=== PATIENT | female | born 1960 | race Asian ===

== ENCOUNTER 2022-04-09 10:52 | Inpatient (IN) | payer OTHER, MEDICAID ==
[~2022-04-09] VITALS: Ht 167.6 cm; Wt 70.1 kg
[2022-04-09 11:00] VITALS: BP_SYST 116
--- NOTE | 2022-04-09 11:23 | NUR ---
RENATO Pierre at bedside examining patient.
--- NOTE | 2022-04-09 11:23 | NUR ---
Patient to ER bed 5 to gown for evaluation. Side rails up.
[2022-04-09 12:07] LABS: BASOPHILS # (AUTO) 0.2 K/uL (0.0-0.2); BASOPHILS % (AUTO) 1.1 % (0.0-2.0); EOSINOPHILS # (AUTO) 0.2 K/uL (0.0-0.4); EOSINOPHILS % (AUTO) 1.1 % (0.0-4.0); HEMATOCRIT 29.6 % (36-48); HEMOGLOBIN 8.7 g/dL (12.0-16.0); LYMPHOCYTES # (AUTO) 0.7 K/uL (1.0-5.5); LYMPHOCYTES % (AUTO) 3.8 % (20.5-51.5); MEAN CORPUSCULAR HEMOGLOBIN 20 pg (27-31); MEAN CORPUSCULAR HGB CONC 29 % (32-36); MEAN CORPUSCULAR VOLUME 69 fL (79.0-98.0); MONOCYTES # (AUTO) 1.1 K/uL (0.0-1.0); NEUTROPHILS # (AUTO) 15.9 K/uL (1.8-7.7); PLATELET COUNT (AUTO) 353 K/uL (130-430); RED BLOOD CELL COUNT(AUTO) 4.27 MIL/uL (4.2-6.2); RED CELL DISTRIBUTION WIDTH 22.6 % (9.0-15.0)
[2022-04-09 12:16] LABS: ANION GAP 11 (5-15); CALCIUM 9.1 mg/dL (8.4-11.0); CHLORIDE 96 mmol/L (98-107); GLUCOSE 107 mg/dL (70-99); UREA NITROGEN, BLOOD 58 mg/dL (8-21)
[2022-04-09 12:23] LABS: INR 0.9 (0.8-1.2); PROTHROMBIN TIME 9.8 SECS (9.5-12.5)
--- NOTE | 2022-04-09 12:24 | NUR ---
[facility] Missed dialysis on Distended abdomen AOX4 VSS Able to sravanthi needs known Pt resting comfortable in bed will continue to monitor
[2022-04-09 12:26] LABS: ALANINE AMINOTRANSFERASE 22 U/L (12-78); ALBUMIN 1.8 g/dL (3.4-4.8); ASPARTATE AMINOTRANSFERASE 26 U/L (10-37); CREATININE 4.56 mg/dL (0.55-1.30); TOTAL BILIRUBIN 0.2 mg/dL (0.0-1.0)
[2022-04-09 12:29] LABS: GFR AFRICAN AMERICAN 13 mL/min (>90)
[2022-04-09] MEDS ORDERED: LINEZOLID 300 ML IV ONE (12:45)
[2022-04-09] MEDS ORDERED: CEFEPIME 2 GM in D5W 100 ML IV ONE (12:45)
--- NOTE | 2022-04-09 14:53 | NUR ---
Admit bed requested Patient will be admitted to care of Admitted to unit Tele Diagnosis SBP Inpatient (Yes or No) y Observation (Yes or No) n Orientation concerns or request close to nursing station (Yes or No) n Covid Status neg On vent or bipap no Isolation requirements no Needs a sitter no From Home (Yes or if No enter name of facility) [facility] Requires Dialysis (Yes or No) y Med Rec Completed (Yes of No) y
[2022-04-09] MEDS ORDERED: MAGNESIUM SULFATE 50 ML IV PRN (15:30)
[2022-04-09] MEDS ORDERED: ACETAMINOPHEN 325 MG TABLET PO PRN ×2 (15:30→18:00)
[2022-04-09] MEDS ORDERED: DOCUSATE SODIUM 100 MG CAPSULE PO PRN (15:30)
[2022-04-09] MEDS ORDERED: ONDANSETRON HCL 4 MG/2 ML VIAL IVP PRN (15:30)
[2022-04-09] MEDS ORDERED: MORPHINE 2 MG/ML INJ. SYRINGE IVP PRN ×2 (15:30)
[2022-04-09] MEDS ORDERED: ZOLPIDEM TARTRATE 5 MG TABLET PO PRN (15:30)
[2022-04-09] MEDS ORDERED: POTASSIUM CHLORIDE 20 MEQ TAB.PRT.SR PO PRN (15:30)
[2022-04-09] MEDS ORDERED: MUPIROCIN 2% TOPICAL OINTMENT 22 GM NS PRN (15:30)
[2022-04-09] MEDS ORDERED: NALOXONE HCL 0.4 MG/ML AMP (NARCAN) IVP PRN ×2 (15:30)
--- NOTE | 2022-04-09 16:19 | NUR ---
Note undone in EDM - 04/09/22 at 1620 by JAQUELINPR # 24 gauge angiocath placed to LAC. Use of asceptic technique. Opsite placed over site. Blood return noted. Blood for lab drawn from site. Flushed with 10 cc of normal saline. No evidence of infiltration noted. Patient tolerated well.
--- NOTE | 2022-04-09 16:20 | NUR ---
# 24 gauge angiocath placed to LEFT LATERAL HAND. Use of asceptic technique. Opsite placed over site. Blood return noted. Blood for lab drawn from site. Flushed with 10 cc of normal saline. No evidence of infiltration noted. Patient tolerated well.
--- NOTE | 2022-04-09 17:08 | NUR ---
Pt resting comfortable in bed at this time AOX4 VSS Able to sravanthi needs known will continue to monitor
[2022-04-09] MEDS ORDERED: ACET-2439 GT (18:22)
[2022-04-09] MEDS ORDERED: AMIO200T66 GT (18:22)
--- NOTE | 2022-04-09 19:30 | NUR ---
report from ricardo harvey
--- NOTE | 2022-04-09 19:40 | NUR ---
Patient to be transferred to TELE UNIT. 134A. Is being transferred due to higher level of care. Receiving facility has accepting physician and available space. ER physician has signed transfer form. Patient or responsible democrat has agreed to transfer and signed form. Patient belongings inventoried and will be sent with patient. Copy of nursing notes, lab reports, EKG, Physicians Orders and X-rays to be sent with patient. Report given to Nell FERNANDO. Receiving physician is
[2022-04-09] MEDS: VANCOMYCIN HCL 500 MG in NS 100 ML IV SCH (20:00)
--- NOTE | 2022-04-09 20:00 | NUR ---
04/09/221999 61 YR OLD PATIENT TRANSFER TO [facility] FROM ED IS ALERT ORIENTED CONNECTED TO TELEMETRY SKLIN WARM AND DRY WITH DIAPER ON REFUSE TO TAKE SAME OFF BILAteral LE with edema orient to room and surroundings
[2022-04-09 20:56] VITALS: BP_SYST 104
[2022-04-09] MEDS: HEPARIN SODIUM,PORCINE 5,000 UNITS/ML VIAL SUBCUT SCH (21:57)
[2022-04-09] MEDS: PIPERACILLIN/TAZO 2.25G/DEX-IS 50 ML IV SCH (22:07)
[2022-04-09 22:08] VITALS: BP_SYST 114
[2022-04-10] VITALS (9 sets, daily range): BP systolic 98–126
--- NOTE | 2022-04-10 02:11 | NUR ---
Consultation Paged Reason for Consultation: poss metastatic disease Was consult called: Y Person who was notified: Gretta Consulting Physician: Dr. Hyde Ordering Physician: Dr. Dee
--- NOTE | 2022-04-10 02:19 | NUR ---
Consultation Paged Reason for Consultation: liver cirrhosis, ascites Was consult called: Y Person who was notified: Michelle Consulting Physician: Gianni Bella Ordering Physician: Dr. Dee
--- NOTE | 2022-04-10 02:42 | NUR ---
CONSULTATION PAGED REASON FOR CONSULTATION: Renal Dialysis WAS CONSULT CALLED? Y PERSON WHO WAS NOTIFIED: Michelle CONSULTING PHYSICIAN: López Hernández (Isabel Hernández is solid waste division supervisor) REQUESTING PHYSICIAN: Dr. Dee
--- NOTE | 2022-04-10 04:38 | NUR ---
INCONTINENT OF URINE DIAPER REMOVED AND WASHED OBSERVE BRUISE ON LT HIP MADE COMFORTABLE IN BED
[2022-04-10] MEDS: PIPERACILLIN/TAZO 2.25G/DEX-IS 50 ML IV SCH ×3 (05:23→22:50)
[2022-04-10 07:03] LABS: BASOPHILS # (AUTO) 0.1 K/uL (0.0-0.2); BASOPHILS % (AUTO) 0.8 % (0.0-2.0); EOSINOPHILS # (AUTO) 0.2 K/uL (0.0-0.4); EOSINOPHILS % (AUTO) 1.4 % (0.0-4.0); HEMATOCRIT 24.9 % (36-48); HEMOGLOBIN 7.8 g/dL (12.0-16.0); LYMPHOCYTES # (AUTO) 0.8 K/uL (1.0-5.5); LYMPHOCYTES % (AUTO) 5.4 % (20.5-51.5); MEAN CORPUSCULAR HEMOGLOBIN 22 pg (27-31); MEAN CORPUSCULAR HGB CONC 31 % (32-36); MEAN CORPUSCULAR VOLUME 69 fL (79.0-98.0); MONOCYTES % (AUTO) 6.7 % (1.7-9.3); NEUTROPHILS # (AUTO) 12.5 K/uL (1.8-7.7); PLATELET COUNT (AUTO) 275 K/uL (130-430); RED BLOOD CELL COUNT(AUTO) 3.61 MIL/uL (4.2-6.2); RED CELL DISTRIBUTION WIDTH 23.1 % (9.0-15.0); WHITE BLOOD COUNT (AUTO) 14.6 K/uL (4.8-10.8)
[2022-04-10 07:50] LABS: CREATININE 4.73 mg/dL (0.55-1.30)
[2022-04-10] MEDS ORDERED: AMIN30LI2 PO (08:00)
[2022-04-10] MEDS ORDERED: FOLI0.8T42 PO (08:00)
[2022-04-10] MEDS ORDERED: DARB40VI IJ (08:00)
[2022-04-10] MEDS ORDERED: DIPH25TA25 PO (08:00)
[2022-04-10] MEDS ORDERED: MIDO10TA PO (08:00)
[2022-04-10] MEDS ORDERED: SEVE800T27 PO (08:00)
[2022-04-10] MEDS ORDERED: ACET325T53 PO (08:00)
[2022-04-10] MEDS ORDERED: [UNRECOGNIZED DRUG - CODE] PO (08:00)
[2022-04-10] MEDS ORDERED: IPRA4AER INH (08:00)
[2022-04-10] MEDS ORDERED: FAMO-279 PO (08:00)
[2022-04-10] MEDS ORDERED: CARV12.548 PO (08:00)
[2022-04-10] MEDS ORDERED: ALPR0.25 PO (08:00)
[2022-04-10] MEDS ORDERED: FERR-69 PO (08:00)
--- NOTE | 2022-04-10 08:00 | NUR ---
OPENING NOTES: Pt. in bed A/O x 4. Pt was being cleaned by DELINQUENCY PREVENTION SOCIAL WORKER. No s/s of distress. Breathing even and unlabored. Repositioned pt with DELINQUENCY PREVENTION SOCIAL WORKER. All needs met, safety checks made and call light within reach.
[2022-04-10 08:40] LABS: NEUTROPHILS % (AUTO) 85.7 % (40.0-70.0)
[2022-04-10] MEDS: HEPARIN SODIUM,PORCINE 5,000 UNITS/ML VIAL SUBCUT SCH ×2 (09:00→21:00)
[2022-04-10 10:20] LABS: INR 0.9 (0.8-1.2); PROTHROMBIN TIME 9.9 SECS (9.5-12.5)
[2022-04-10 10:29] LABS: TOTAL IRON BIND. CAPACITY 152 ug/dL (250-450)
[2022-04-10 10:59] LABS: ALBUMIN 1.6 g/dL (3.4-4.8); BILIRUBIN,DIRECT 0.1 mg/dL (0.0-0.3); TOTAL BILIRUBIN 0.4 mg/dL (0.0-1.0)
--- NOTE | 2022-04-10 11:07 | NUR ---
CONSENT SIGNED: Pt signed the consent form for paracentesis. Placed in chart.
[2022-04-10] MEDS ORDERED: HEPARIN SODIUM,PORCINE 5,000 UNITS/ML VIAL SUBCUT ONE (11:45)
--- NOTE | 2022-04-10 11:45 | NUR ---
HIGH ALERT NOTE: Spoke with Dr Pringle in person and verified one time order for heparin to be used during dialysis.
--- NOTE | 2022-04-10 12:33 | NUR ---
PATIENT REFUSED PHYSICAL THERAPY Patient seen by physical therapist, Pascual. Patient refused to work with physical therapy at this time.
[2022-04-10] MEDS: SEVELAMER CARBONATE 800 MG TABLET PO SCH ×2 (13:19→17:34)
[2022-04-10] MEDS ORDERED: ALTEPLASE 2 MG VIAL MC ONE (16:00)
--- NOTE | 2022-04-10 16:30 | NUR ---
UNABLE TO HAVE DIALYSIS Patient unable to have dialysis due to clogged port. Activase provided by the dialysis nurse per MDs orders. Will attempt to perform dialysis tomorrow afternoon.
[2022-04-10] MEDS: LORazepam 2 MG/ML VIAL IVP PRN (17:56)
--- NOTE | 2022-04-10 17:56 | NUR ---
ANXIETY Patient complaining of feeling anxious and upset regarding her home medications. PRN ativan provided.
--- NOTE | 2022-04-10 18:55 | NUR ---
CLOSING NOTE Patient in bed resting, no sign of distress and patient denies pain. Patient updated on her plan of care, verbalized understanding. All needs met at this time and safety checks made. Will endorse to willower nurse.
--- NOTE | 2022-04-10 19:30 | NUR ---
OPENING Received report from day shift nurse. Patient resting in bed, unlabored breathing on room air. No sign of distress noted. Exit alarm on, bed low and locked.
--- NOTE | 2022-04-10 19:50 | NUR ---
Patient found sitting on ground. No sign of injury noted. Patient responsive but unable to state what happened. Bed alarm was on and side rails were up. HR 138, BP 101/76, 94% on room air on return to bed. Blood sugar 144. Safety precautions in place.
--- NOTE | 2022-04-10 20:24 | NUR ---
Dr. Dee Notified Dr. Dee that patient was found sitting on ground and of current vitals and general status. Latest BP 98/63, HR 126. Dr. Dee stated not to give the one time metoprolol he gave telephone order for during day shift, and to contact Dr. Flores for cardiology consult and about the heart rate and blood pressure.
--- NOTE | 2022-04-10 21:44 | NUR ---
PAGED DR. OSORIO
--- NOTE | 2022-04-10 21:45 | NUR ---
Dr. Florse Notified Dr. Flores that patient's HR has been elevated up to 139, and that BP was 98/63 earlier. Latest BP 111/75, HR 119. Dr. Flores gave order to stop carvedilol and to start metoprolol 25mg BID with first dose tonight.
--- NOTE | 2022-04-10 22:30 | NUR ---
Patient moved to room 121B closer to nursing station.
[2022-04-10] MEDS: METOPROLOL TARTRATE 25 MG TABLET PO SCH (22:50)
[2022-04-11 00:20] VITALS: BP_SYST 116
[2022-04-11] MEDS: PIPERACILLIN/TAZO 2.25G/DEX-IS 50 ML IV SCH ×3 (06:05→22:59)
[2022-04-11 07:07] LABS: AFP, TUMOR MARKER <1.8 ng/mL (0.0-9.2)
--- NOTE | 2022-04-11 07:15 | NUR ---
OPENING NOTE RECEIVED SBAR FROM NIGHT RN. PATIENT IN BED, RESPIRATIONS EVEN, NON LABORED BED IN LOW AND LOCKED POSITION, CALL LIGHT WITHIN REACH. BED ALARM ON
--- NOTE | 2022-04-11 07:39 | NUR ---
CLOSING Patient resting in bed, no distress noted. Periods of confusion/forgetfulness but patient reorients easily. Patient asked about the procedures being done today. Incontinence care provided, gown and linens changed. Bed low and locked, exit alarm on. Care endorsed to oncoming nurse.
[2022-04-11 08:00] VITALS: BP_SYST 100
[2022-04-11 08:06] LABS: HEPATITIS A AB, IgM Negative (Negative); HEPATITIS B CORE AB, IgM Negative (Negative); HEPATITIS B SURFACE AG Negative (Negative)
[2022-04-11] MEDS: HEPARIN SODIUM,PORCINE 5,000 UNITS/ML VIAL SUBCUT SCH ×2 (08:27→21:00)
[2022-04-11] MEDS: METOPROLOL TARTRATE 25 MG TABLET PO SCH ×2 (08:27→21:45)
[2022-04-11] MEDS: AMIODARONE HCL 200 MG TABLET GT SCH (08:32)
[2022-04-11] MEDS: NEPHROVITE, (FOLIC ACID/VITAMIN B COMP W-C 1 TAB) PO SCH (08:32)
[2022-04-11] MEDS: SEVELAMER CARBONATE 800 MG TABLET PO SCH ×3 (08:35→17:27)
[2022-04-11 08:51] LABS: BASOPHILS # (AUTO) 0.1 K/uL (0.0-0.2); BASOPHILS % (AUTO) 0.5 % (0.0-2.0); EOSINOPHILS % (AUTO) 0.3 % (0.0-4.0); HEMATOCRIT 26.4 % (36-48); HEMOGLOBIN 7.9 g/dL (12.0-16.0); LYMPHOCYTES # (AUTO) 0.6 K/uL (1.0-5.5); LYMPHOCYTES % (AUTO) 4.6 % (20.5-51.5); MEAN CORPUSCULAR HEMOGLOBIN 21 pg (27-31); MEAN CORPUSCULAR HGB CONC 30 % (32-36); MEAN CORPUSCULAR VOLUME 71 fL (79.0-98.0); MONOCYTES # (AUTO) 0.9 K/uL (0.0-1.0); MONOCYTES % (AUTO) 6.3 % (1.7-9.3); NEUTROPHILS % (AUTO) 88.3 % (40.0-70.0); PLATELET COUNT (AUTO) 187 K/uL (130-430); RED BLOOD CELL COUNT(AUTO) 3.75 MIL/uL (4.2-6.2); WHITE BLOOD COUNT (AUTO) 13.6 K/uL (4.8-10.8)
--- NOTE | 2022-04-11 08:51 | NUR ---
PARACENTESIS DR HERNANDEZ BEDSIDE FOR PROCEDURE US GUIDED PARACENTESIS LEFT LOWER ABDOMEN APPROACH. CORRECT MARKED SITE TIME OUT DONE
[2022-04-11] MEDS ORDERED: CARVEDILOL 12.5 MG TABLET (COREG) PO SCH (09:00)
[2022-04-11 09:21] LABS: TOTAL IRON BIND. CAPACITY 157 ug/dL (250-450)
[2022-04-11] MEDS ORDERED: ALBUMIN HUMAN 25% 100 ML IV ONE (09:45)
--- NOTE | 2022-04-11 11:23 | NUR ---
CODING ANALYST DR OSORIO WAS CALLED, RE: LOW BP. SPOKE TO JENN.
--- NOTE | 2022-04-11 11:34 | NUR ---
SPOKE WITH DR OSORIO REGARDING BP 88/48, NEW ORDERS RECEIVED
[2022-04-11] MEDS ORDERED: NS 250 ML IV ONE (11:45)
--- NOTE | 2022-04-11 11:54 | NUR ---
NURSE NOTE PATIENT INCONTINENT OF BOWEL AND BLADDER, PROVIDED KEREN CARE, CHANGED LINENS, REPOSITIONED PATIENT. COLLECTED STOOL FOR TEST.
[2022-04-11 12:00] VITALS: BP_SYST 88
--- NOTE | 2022-04-11 12:34 | NUR ---
Shank Sander LATE ENTRY++++++++++++++++++++++++++++++++++++++ BOAT DRIVER received a referral to see pt. for Shank Sander BOAT DRIVER introduced self to pt at bedside. Pt. was AOx4, spoke in a low and calm voice,was engaged in this interview and maintained eye contact. Pt stated she has a phone number, and lives in a home with roommates. Pt. stated she does not care for the food. Pt. stated he roommate is Jazmin Reyes, . Pt. resides at [place]. .Pt. stated she is fine and that she did not need anything. Pt denied feeling suicidal. BOAT DRIVER provided pt with medical clinic and mental health clinic resources. BOAT DRIVER will remain available as needed.
[2022-04-11 12:40] LABS: BASOPHILS # (AUTO) 0.1 K/uL (0.0-0.2); BASOPHILS % (AUTO) 0.8 % (0.0-2.0); EOSINOPHILS # (AUTO) 0.1 K/uL (0.0-0.4); EOSINOPHILS % (AUTO) 1.1 % (0.0-4.0); LYMPHOCYTES # (AUTO) 0.5 K/uL (1.0-5.5); LYMPHOCYTES % (AUTO) 4.6 % (20.5-51.5); MEAN CORPUSCULAR HEMOGLOBIN 21 pg (27-31); MEAN CORPUSCULAR HGB CONC 31 % (32-36); MEAN CORPUSCULAR VOLUME 69 fL (79.0-98.0); MONOCYTES # (AUTO) 0.8 K/uL (0.0-1.0); MONOCYTES % (AUTO) 6.7 % (1.7-9.3); NEUTROPHILS # (AUTO) 10.1 K/uL (1.8-7.7); NEUTROPHILS % (AUTO) 86.8 % (40.0-70.0); PLATELET COUNT (AUTO) 230 K/uL (130-430); RED BLOOD CELL COUNT(AUTO) 2.89 MIL/uL (4.2-6.2); RED CELL DISTRIBUTION WIDTH 23.1 % (9.0-15.0); WHITE BLOOD COUNT (AUTO) 11.6 K/uL (4.8-10.8)
[2022-04-11 12:49] LABS: BF APPEARANCE UNSPUN CLOUDY (CLEAR); BODY FLUID COLOR RED (LT YELLOW); BODY FLUID SOURCE/ TYPE PERITONEAL; BODY FLUID TOTAL VOLUME 1200 mL; SOURCE/TYPE ,BODY FLUID PERITONEAL
[2022-04-11 13:00] LABS: HEMATOCRIT 19.9 % (36-48); HEMOGLOBIN 6.2 g/dL (12.0-16.0)
[2022-04-11] MEDS ORDERED: ALBUMIN HUMAN 25% 50 ML IV ONE (13:00)
[2022-04-11] MEDS ORDERED: ALBUMIN HUMAN 25% 150 ML IV ONE (13:15)
[2022-04-11 13:21] LABS: CREATININE 3.55 mg/dL (0.55-1.30); VANCOMYCIN,RANDOM 4.2 ug/mL
[2022-04-11 13:26] LABS: CALCIUM 5.9 mg/dL (8.4-11.0)
--- NOTE | 2022-04-11 13:30 | NUR ---
critical lab paged dr Hyde for critical lab h/h 6.2 19.9. calcium 5.9
--- NOTE | 2022-04-11 13:31 | NUR ---
ONCO/HARISH MD DR GELLER WAS CALLED, RE: CRITICAL LABS. SPOKE TO RACHEL.
--- NOTE | 2022-04-11 13:54 | NUR ---
md DR GELLER INFORMED OF CRITICAL H/H NEW ORDERS RECEIVED
--- NOTE | 2022-04-11 13:55 | NUR ---
PAGED DR GARCIA REGARDING CRITICAL CALCIUM 5.9
--- NOTE | 2022-04-11 13:57 | NUR ---
SUPERINTENDENT PLANT DR GARCIA WAS CALLED, RE: CRITICAL LABS. SPOKE TO KAREN.
--- NOTE | 2022-04-11 14:35 | NUR ---
2ND PAGE FOR DR GARCIA, WAITER/WAITRESS CLUB, RE: Ca OF 5.9. SPOKE TO BETH
[2022-04-11 16:00] VITALS: BP_SYST 90
--- NOTE | 2022-04-11 16:44 | NUR ---
PAGEJered STACK PAGEJered GARCIA 3RD TIME REGARDING CRITICAL LAB
--- NOTE | 2022-04-11 17:08 | NUR ---
NURSE NOTE PATIENT INCONTINENT OF BOWEL AND BLADDER, PROVIDED KEREN CARE, CHANGED LINENS, REPOSITIONED PATIENT. PATIENT DENIES ANY PAIN OR DISCOMFORT.
--- NOTE | 2022-04-11 17:30 | NUR ---
DR MALAGON MADE ROUNDS AND SAW PATIENT DR MALAGON CAME AND EVALUATED PATIENT, MADE AWARE PATIENT HAS LOW BP OF SBP 86, ASYMPTOMATIC. CALCIUM OF 5.[address] GARCIA IS NOT CALLING BACK, HE SAID IT'S OK AND CAN WAIT TILL SEEN BY MD TOMORROW.
[2022-04-11 19:00] VITALS: BP_SYST 108
--- NOTE | 2022-04-11 19:07 | NUR ---
CLOSING NOTE PROVIDED SBAR TO NIGHT RN. PATIENT IN BED, RESPIRATIONS EVEN, NON LABORED, BED IN LOW AND LOCKED POSITION, CALL LIGHT WITHIN REACH. BED ALARM ON. ENDORSED 2UNITS PRBC TO NIGHT RN. COLLECTION OF UA TO NIGHT RN
--- NOTE | 2022-04-11 19:15 | NUR ---
change of shift.pt.presents stable general status.respiratory status stable;unlabored@room air.pt.presents withdrawn affect;calm.no c/o pian.nausea.iv access location lt.wrist.intact.call light/telephone w/in access of the pt.
[2022-04-11 19:24] LABS: EOSINOPHIL, BODY FLUID 1 %; LYMPHOCYTES, BODY FLUID 74 %; MONOCYTES,BODY FLUID 2 %; NEUTROPHIL, BODY FLUID 23 %; RBC, BODY FLUID 30975 /uL; WBC, BODY FLUID 1410 /uL
[2022-04-11 19:25] LABS: BODY FLUID OTHER CELLS 1 %
--- NOTE | 2022-04-11 20:00 | NUR ---
pt.assessed.v/s assessed value s note b/p status low.pt.ordered 2-units prbc's.i have re-established iv access location rt.hand; #22g.pt.apprised that snacks/beverages are available w/in the shift.no requests posited@this hour.no c/o pain.nausea.pt.assessed for cleanliness.pt.repositioned.call light/telephone placed w/in access of the pt.
--- NOTE | 2022-04-11 21:00 | NUR ---
2100p medications administered.lopressor/heparin held 2/t low b/p status/low hgb/hct status.to f/u w r/e:the medications pt's status warrenting hold of the medications.
[2022-04-11] MEDS: VANCOMYCIN HCL 500 MG in NS 100 ML IV SCH (21:44)
--- NOTE | 2022-04-11 22:00 | NUR ---
pt.assessed.pt.quiescent;resting.iv access intact iv abx;zosyn/vancomycin administered.no c/o pain,nausea. no requests posited@this hour.pt.assessed for cleanliness.pt.repositioned.call light/telephone placed w/in access of the pt.
[2022-04-11 22:13] LABS: BODY FLUID GLUCOSE 40 mg/dL; BODY FLUID TOTAL PROTEIN 3.4 g/dL
--- NOTE | 2022-04-11 23:20 | NUR ---
blood transfusion initiated:#1/2 prbc;s.v/s assessed per protocol.note b/p status low status.
--- NOTE | 2022-04-11 23:35 | NUR ---
per blood transfusion protocol.i remained w pt.initial 15mins of the blood transfusion.pt.tolerating th administration.no adverse reaction manifested.
--- NOTE | 2022-04-12 | NUR ---
pt.assessed.v/s assessed note b/p status;low status.no c/o pain,nausea.no requests posited@this hour. blood transfusion in progress.pt.assessed for cleanliness.pt.repositioned.call light/telephone placed w/in access of the pt.
[2022-04-12 01:06] LABS: FOLATE (FOLIC ACID) 15.7 ng/mL (>3.0)
[2022-04-12 01:28] VITALS: BP_SYST 94
--- NOTE | 2022-04-12 01:30 | NUR ---
pt.presented anxious status.ambien:5mg po administered.to assess the efficacy of the medication per protocol.
--- NOTE | 2022-04-12 03:20 | NUR ---
blood transfusion:#2/2 prbc's initiated.v/s assessed per protocol.iv access intact;patent.
--- NOTE | 2022-04-12 03:35 | NUR ---
per blood transfusion protocol i have remained w pt.initial 15mins of the blood transfusion.no adverse reaction manifested.
--- NOTE | 2022-04-12 04:00 | NUR ---
pt.assessed.blood transfusiuon in progress.pt.tolerating the administration.pt quiescent/somnolent.per flacc pain mgx pt.absent facial grimaces/body posturing.pt.assessed for cleanliness.pt.repositioned.call light/telephone placed w/in access of the pt.
[2022-04-12] MEDS: PIPERACILLIN/TAZO 2.25G/DEX-IS 50 ML IV SCH ×3 (05:39→21:33)
--- NOTE | 2022-04-12 06:05 | NUR ---
pt.assessed.pt.assessed for cleanliness.pt.cleaned/repositioned.pt.weighed 2/t chf/lasix hx.blood transfusion in progress. no c/o pain,nausea.shell light/telephone placed w/in access of the pt.
[2022-04-12 08:00] VITALS: BP_SYST 133
[2022-04-12 08:06] LABS: FOLATE (FOLIC ACID) >20.0 ng/mL (>3.0)
[2022-04-12] MEDS: SEVELAMER CARBONATE 800 MG TABLET PO SCH ×3 (09:07→17:49)
[2022-04-12] MEDS: METOPROLOL TARTRATE 25 MG TABLET PO SCH ×2 (09:08→21:32)
[2022-04-12] MEDS: AMIODARONE HCL 200 MG TABLET GT SCH (09:08)
[2022-04-12] MEDS: NEPHROVITE, (FOLIC ACID/VITAMIN B COMP W-C 1 TAB) PO SCH (09:08)
[2022-04-12] MEDS: HEPARIN SODIUM,PORCINE 5,000 UNITS/ML VIAL SUBCUT SCH ×2 (09:10→21:36)
[2022-04-12 10:17] LABS: BASOPHILS % (AUTO) 0.2 % (0.0-2.0); EOSINOPHILS # (AUTO) 0.2 K/uL (0.0-0.4); HEMATOCRIT 31.4 % (36-48); HEMOGLOBIN 9.8 g/dL (12.0-16.0); LYMPHOCYTES # (AUTO) 0.5 K/uL (1.0-5.5); LYMPHOCYTES % (AUTO) 3.2 % (20.5-51.5); MEAN CORPUSCULAR HEMOGLOBIN 23 pg (27-31); MEAN CORPUSCULAR HGB CONC 31 % (32-36); MEAN CORPUSCULAR VOLUME 73 fL (79.0-98.0); MONOCYTES % (AUTO) 6.6 % (1.7-9.3); NEUTROPHILS # (AUTO) 13.9 K/uL (1.8-7.7); PLATELET COUNT (AUTO) 244 K/uL (130-430); RED BLOOD CELL COUNT(AUTO) 4.28 MIL/uL (4.2-6.2); RED CELL DISTRIBUTION WIDTH 22.2 % (9.0-15.0); WHITE BLOOD COUNT (AUTO) 15.7 K/uL (4.8-10.8)
[2022-04-12 10:33] LABS: ALBUMIN 2.2 g/dL (3.4-4.8); CALCIUM 7.9 mg/dL (8.4-11.0); CREATININE 2.86 mg/dL (0.55-1.30); TOTAL BILIRUBIN 0.8 mg/dL (0.0-1.0)
[2022-04-12 11:00] VITALS: BP_SYST 107; BP_SYST 135
[2022-04-12 11:05] VITALS: BP_SYST 107
[2022-04-12 16:00] LABS: BILIRUBIN,URINE NEGATIVE (NEGATIVE); CLARITY/URINE SL CLOUDY (CLEAR); COLOR,URINE YELLOW (YELLOW); GLUCOSE,URINE NEGATIVE (NEGATIVE); KETONES,URINE NEGATIVE (NEGATIVE); LEUKOCYTE ESTERASE ,URINE 2+ (NEGATIVE); NITRITE, URINE NEGATIVE (NEGATIVE); PROTEIN URINE 2+ (NEGATIVE); UROBILINOGEN,URINE 0.2 (0.2-1.0)
--- NOTE | 2022-04-12 16:03 | NUR ---
URINE COLLECTED FOR UA SENT TO THE LAB
[2022-04-12 16:11] LABS: BLOOD, URINE TRACE (NEGATIVE)
[2022-04-12 16:18] LABS: BACTERIA,URINE FEW /HPF (None Seen); MUCUS,URINE None Seen /LPF (None Seen); RBC,URINE 0-3 /HPF (0-3)
[2022-04-12 16:49] VITALS: BP_SYST 103
[2022-04-12 20:00] VITALS: BP_SYST 109
[2022-04-12] MEDS: PSYLLIUM HUSK 1 PKT PACKET PO SCH (21:40)
[2022-04-13] VITALS: BP_SYST 99
--- NOTE | 2022-04-13 05:00 | NUR ---
no distress noted, comfort maintained, patient anxious at times, constantly calling nurse, incontinent of bowel and bladder, roxy po intake, vss, see vs flowsheet, no cardiac distress noted
[2022-04-13] MEDS: PIPERACILLIN/TAZO 2.25G/DEX-IS 50 ML IV SCH ×2 (07:01→14:59)
--- NOTE | 2022-04-13 07:47 | NUR ---
PHYSICAL THERAPY CO-SIGN The Physical Therapy Progress Notes documented by Settlement Clerk have been reviewed. Reviewed/Co-Signed by: Pascual Mckeon Documentation Done by: CLARISA CHE PTA Addendum: 04/13/22 at 0748 by Pascual Mckeon PT Amended: Links added.
[2022-04-13 08:00] VITALS: BP_SYST 101
[2022-04-13 08:14] LABS: FERRITIN 1682 ng/mL (15-150)
[2022-04-13] MEDS: NEPHROVITE, (FOLIC ACID/VITAMIN B COMP W-C 1 TAB) PO SCH (08:33)
[2022-04-13] MEDS: SEVELAMER CARBONATE 800 MG TABLET PO SCH ×2 (08:33→12:00)
[2022-04-13] MEDS: HEPARIN SODIUM,PORCINE 5,000 UNITS/ML VIAL SUBCUT SCH (08:35)
[2022-04-13] MEDS: METOPROLOL TARTRATE 25 MG TABLET PO SCH (08:37)
[2022-04-13] MEDS: AMIODARONE HCL 200 MG TABLET GT SCH (08:37)
[2022-04-13] MEDS: PSYLLIUM HUSK 1 PKT PACKET PO SCH (08:38)
[2022-04-13 10:30] LABS: BASOPHILS # (AUTO) 0.1 K/uL (0.0-0.2); BASOPHILS % (AUTO) 0.5 % (0.0-2.0); EOSINOPHILS # (AUTO) 0.2 K/uL (0.0-0.4); EOSINOPHILS % (AUTO) 1.7 % (0.0-4.0); HEMATOCRIT 33.8 % (36-48); HEMOGLOBIN 10.5 g/dL (12.0-16.0); LYMPHOCYTES # (AUTO) 0.6 K/uL (1.0-5.5); LYMPHOCYTES % (AUTO) 4.8 % (20.5-51.5); MEAN CORPUSCULAR HEMOGLOBIN 23 pg (27-31); MEAN CORPUSCULAR HGB CONC 31 % (32-36); MEAN CORPUSCULAR VOLUME 74 fL (79.0-98.0); MONOCYTES % (AUTO) 7.2 % (1.7-9.3); NEUTROPHILS # (AUTO) 11.5 K/uL (1.8-7.7); NEUTROPHILS % (AUTO) 85.8 % (40.0-70.0); PLATELET COUNT (AUTO) 270 K/uL (130-430); RED BLOOD CELL COUNT(AUTO) 4.59 MIL/uL (4.2-6.2); RED CELL DISTRIBUTION WIDTH 22.5 % (9.0-15.0); WHITE BLOOD COUNT (AUTO) 13.4 K/uL (4.8-10.8)
[2022-04-13 10:36] LABS: CALCIUM 7.5 mg/dL (8.4-11.0); CREATININE 2.91 mg/dL (0.55-1.30); VANCOMYCIN,RANDOM 6.8 ug/mL
[2022-04-13 11:40] VITALS: BP_SYST 102
[2022-04-13] MEDS: LORazepam 2 MG/ML VIAL IVP PRN (13:34)
[2022-04-13 15:53] VITALS: BP_SYST 138
--- NOTE | 2022-04-13 16:30 | NUR ---
PT DC BACK TO [place]. REPORT GIVEN TO DENIA. IV REMOVED. ID BAND REMOVED. PT RECEIVED DIALYSIS BEFORE DC. 1.6L OUT. PT TOLERATED WELL. ALL NEEDS MEET AT THIS TIME. PT HAD ALL BELONGINGS. UNABLE TO CONTACT FAMILY. NUMBER IN CHART WAS DISCONNECTED. NOTIFIED HAT LACER WHO STATED IT IS OK TO STILL DC PT TO [place].
[2022-04-13 16:46] VITALS: BP_SYST 138
[2022-04-13] MEDS ORDERED: VANCOMYCIN HCL 750 MG in NS 250 ML IV SCH (20:00)
== END 2022-04-13 12:42 | DRG 871 ==
LOC: SED 10:52 → STU 14:44
PROVIDERS: ADMIT General Practice; ATTEND General Practice
PROC: 0W9G3ZZ Drainage of Peritoneal Cavity, Percutaneous Approach (ICD-10-PCS; principal; 2022-04-11)
PROC: 30233N1 Transfusion of Nonautologous Red Blood Cells into Peripheral Vein, Percutaneous Approach (ICD-10-PCS; 2022-04-11)
PROC: 5A1D70Z Performance of Urinary Filtration, Intermittent, Less than 6 Hours Per Day (ICD-10-PCS; 2022-04-12)
DX: A41.9 Sepsis, unspecified organism (principal); E43 Unspecified severe protein-calorie malnutrition; N18.6 End stage renal disease; N17.0 Acute kidney failure with tubular necrosis; K65.2 Spontaneous bacterial peritonitis; C56.9 Malignant neoplasm of unspecified ovary; J90 Pleural effusion, not elsewhere classified; R18.8 Other ascites; K74.60 Unspecified cirrhosis of liver; D63.8 Anemia in other chronic diseases classified elsewhere; M06.9 Rheumatoid arthritis, unspecified; Z20.822 Contact with and (suspected) exposure to COVID-19; M19.09 Primary osteoarthritis, other specified site; G25.81 Restless legs syndrome; J44.9 Chronic obstructive pulmonary disease, unspecified; F10.10 Alcohol abuse, uncomplicated; Y90.9 Presence of alcohol in blood, level not specified; Z79.899 Other long term (current) drug therapy; Z87.891 Personal history of nicotine dependence; Z99.2 Dependence on renal dialysis; Z88.8 Allergy status to other drugs, medicaments and biological substances; Z91.010 Allergy to peanuts; Z68.24 Body mass index [BMI] 24.0-24.9, adult
CPT/HCPCS: 36415; 49083; 71045; 76376; 76705; 80048; 80053; 80061; 80076; 80202; 81000; 82040; 82042; 82105; 82272; 82607; 82728; 82746; 82947; 83036; 83540; 83550; 83605; 83735; 84157; 84484; 85025; 85044; 85610-TC; 85730-TC; 86304; 86705; 86709; 86886; 86900; 86901; 86920; 87040; 87070-TC; 87075-TC; 87081; 87086; 87186-TC; 87340; 88108; 88305; 89051-TC; 89060-TC; 90935; 90937; 93005; 93306; 96365; 96367; 97110-GP; 97530-GP; 99285; G0378; J0692; J1644; J2020; J2060; J2543; J2997; J3370; J7030; J7050; J7060; P9021; P9046

== ENCOUNTER 2022-05-12 13:18 | Inpatient (IN) | payer OTHER, MEDICAID ==
[~2022-05-12] VITALS: Ht 165.1 cm; Wt 86.4 kg
[~2022-05-12 13:18] MED LIST: ACET-2439 GT; ACET325T53 PO; ALPR0.25 PO; AMIN30LI2 PO; AMIO200T66 GT; CARV12.548 PO; DARB40VI IJ; DIPH25TA25 PO; FAMO-279 PO; FERR-69 PO; FOLI0.8T42 PO; IPRA4AER INH; MIDO10TA PO; SEVE800T27 PO; [UNRECOGNIZED DRUG - CODE] PO
--- NOTE | 2022-05-12 13:19 | NUR ---
PT [facility]. PT RECEIVED FIRST 30 MINUTES OF DIALYSIS WITH NO FLUID TAKEN. PT B/P 84/50. PT IS DROWSY, AAOX3-4. RESP E/U. NO RA. SINUS TACH HR 138. ABDOMEN SOFT, NONTENDER. DENIES N/V. PT HAB BUE TRACE EDEMA AND BLE 3+ EDEMA. SKIN CDI. DISTAL PULSES WEAK. UNABLE TO OBTAIN IV ACCESS. DR. CHERY MADE AWARE.
--- NOTE | 2022-05-12 13:21 | NUR ---
DR. CHERY AT BEDSIDE TO ASSESS PT.
--- NOTE | 2022-05-12 13:24 | NUR ---
PT O2 SAT 90%, N/C AT 2LPM APPLIED.
[2022-05-12] MEDS ORDERED: PIPERACILLIN/TAZO 3.375 GM in NS 50 ML IV ONE (13:45)
[2022-05-12] MEDS ORDERED: NS 250 ML IV ONE (14:00)
--- NOTE | 2022-05-12 14:05 | NUR ---
DR. REZA MADE AWARE UNABLE TO ESTABLISH IV ACCESS. LABS NOT OBTAINED YET.
[2022-05-12 14:20] VITALS: BP_SYST 84
[2022-05-12] MEDS ORDERED: PIPERACILLIN/TAZOBACTAM 3.375 GM/VIAL (ZOSYN) IV ONE (14:29)
--- NOTE | 2022-05-12 14:45 | NUR ---
STEPHENJ 18G IV CATH PLACED BY DR. REZA. FLUSHED, PATENT. LABS DRAWN AT THIS TIME. ZOSYN AND 1000ML BOLUS GIVEN. Addendum: 05/12/22 at 1504 by [email or web address] CLARIFICATION: 250ML NS BOLUS GIVEN.
[2022-05-12 15:20] LABS: HEMATOCRIT 25.9 % (36-48); MEAN CORPUSCULAR HEMOGLOBIN 23 pg (27-31); MEAN CORPUSCULAR HGB CONC 31 % (32-36); MEAN CORPUSCULAR VOLUME 74 fL (79.0-98.0); PLATELET COUNT (AUTO) 299 K/uL (130-430); RED CELL DISTRIBUTION WIDTH 21.9 % (9.0-15.0); WHITE BLOOD COUNT (AUTO) 22.3 K/uL (4.8-10.8)
[2022-05-12 15:26] LABS: HEMOGLOBIN 7.9 g/dL (12.0-16.0)
[2022-05-12 15:38] LABS: BAND % (MANUAL) 12 % (0-6); BASOPHILS % (MANUAL) 0 % (0-2); EOSINOPHILS % (MANUAL) 1 % (0-7); LYMPHOCYTES % (MANUAL) 3 % (20-46); METAMYELOCYTES % 1 % (0-0); MONOCYTES % (MANUAL) 2 % (0-11)
[2022-05-12 15:39] LABS: ANION GAP 9 (5-15); CHLORIDE 102 mmol/L (98-107); CREATININE 3.24 mg/dL (0.55-1.30); GLUCOSE 99 mg/dL (70-99); UREA NITROGEN, BLOOD 27 mg/dL (8-21)
[2022-05-12 15:42] LABS: GFR AFRICAN AMERICAN 19 mL/min (>90)
--- NOTE | 2022-05-12 15:42 | NUR ---
COVID/MRSA OBTAINED AND TAKEN TO LAB.
[2022-05-12] MEDS ORDERED: NOREPINEPHRINE BITARTRATE 4 MG in NS 246 ML IV ONE (15:45)
[2022-05-12] MEDS ORDERED: NOREPINEPHRINE 4 MG/4 ML VIAL IV ONE ×4 (15:48→23:34)
[2022-05-12 16:01] LABS: ALANINE AMINOTRANSFERASE 18 U/L (12-78); ALBUMIN 1.4 g/dL (3.4-4.8); ASPARTATE AMINOTRANSFERASE 32 U/L (10-37); TOTAL BILIRUBIN 0.4 mg/dL (0.0-1.0)
--- NOTE | 2022-05-12 16:11 | NUR ---
B/P7/, HR 125, LEVOPHED INITIATED AT 0.1 MCG/KG/MIN. WILL CONTINUE TO MONITOR AND TITRATE INDICATED.
[2022-05-12] MEDS ORDERED: FAMO20TA8 PO (16:27)
[2022-05-12] MEDS ORDERED: ALPR0.25 PO (16:27)
[2022-05-12] MEDS ORDERED: COR12.5 PO (16:27)
[2022-05-12] MEDS ORDERED: DIPH25CA83 PO (16:27)
[2022-05-12] MEDS ORDERED: RISP0.5T5 PO (16:27)
[2022-05-12] MEDS ORDERED: MIDO10TA PO (16:27)
[2022-05-12] MEDS ORDERED: ATRMDI INH (16:27)
[2022-05-12] MEDS ORDERED: FOLI0.8T41 PO (16:27)
--- NOTE | 2022-05-12 16:40 | NUR ---
PT STRAIGHT CATH WITH NO URINE RETURN. DR. REZA MADE AWARE NO URINE SAMPLE OBTAINED AND PT STARTED ON LEVOPHED. DR. REZA STATED NO NEED FOR CARDOZA CATHETER. Addendum: 05/12/22 at 1641 by [email or web address] PT MOST LIKELY ANURIC.
--- NOTE | 2022-05-12 16:42 | NUR ---
Admit bed requested Patient will be admitted to care of . Admitted to ICU unit. Diagnosis SEPSIS Inpatient (Yes or No) YES Observation (Yes or No) NO Orientation concerns or request close to nursing station (Yes or No) NO Covid Status NEGATIVE On vent or bipap NO Isolation requirements NONE Needs a sitter NO From Home (Yes or if No enter name of facility) [facility] Requires Dialysis (Yes or No) YES Med Rec Completed (Yes of No) YES
--- NOTE | 2022-05-12 17:20 | NUR ---
LEVOFLOXACIN IVPB INITIATED.
--- NOTE | 2022-05-12 19:46 | NUR ---
Report received from ABDULLAHI Cornejo for continuity of care. Patient in stable condition. Vital signs stable.
--- NOTE | 2022-05-12 20:26 | NUR ---
Patient has not felt the urge to void at this moment.
[2022-05-12] MEDS: NOREPINEPHRINE BITARTRATE 4 MG in NS 246 ML IV PRN ×2 (20:52→23:42)
--- NOTE | 2022-05-12 20:59 | NUR ---
Titrated levophed according to BP MAP. Patient stable at the moment. No active distress noted.
[2022-05-12 21:41] VITALS: BP_SYST 113
--- NOTE | 2022-05-12 23:48 | NUR ---
Attempted to titrate patient down levophed. BP dropped to 74/26. Kept patient on titrable dose of levophed per EMAR protocol. Patient BP is 105/66 (80)
[2022-05-13] VITALS (17 sets, daily range): BP systolic 91–122
[2022-05-13] MEDS ORDERED: NOREPINEPHRINE 4 MG/4 ML VIAL IV ONE ×3 (01:32→10:27)
[2022-05-13] MEDS: NOREPINEPHRINE BITARTRATE 4 MG in NS 246 ML IV PRN ×2 (02:07→06:54)
--- NOTE | 2022-05-13 02:09 | NUR ---
Attempted to titrate levophed down, but blood pressure systolic went down to 80s, 70s. Patient blood pressure medication titrated accordingly.
--- NOTE | 2022-05-13 02:47 | NUR ---
Patient resting at the moment. Vital signs stable. Turned as appropriate.
[2022-05-13] MEDS ORDERED: ONDANSETRON HCL 4 MG/2 ML VIAL IVP ONE (03:30)
[2022-05-13] MEDS ORDERED: fentaNYL CITRATE/PF 100 MCG/2 ML AMP IVP ONE (03:30)
--- NOTE | 2022-05-13 04:45 | NUR ---
Dr. Elder notified of heart rhythm appearing abnormal. Patient made aware.
--- NOTE | 2022-05-13 04:48 | NUR ---
Called for ICU bed and spoke with CALE Varela. CALE Varela speaking with ER CALE Sandoval.
--- NOTE | 2022-05-13 07:29 | NUR ---
Report given to day shift RN Kwesi for continuity of care. Patient in stable condition.
--- NOTE | 2022-05-13 07:29 | NUR ---
ASSUMED PATIENT CARE , AAOX 4, RESTLESS AND ANXIOUS ABOUT HER PSYCH MEDS, ON A P MECHANIC A-FIB AT A RATE OF 113, PATIENT ON LEVOPHEDE AT 0.45MCG/KG, PATIENT DENIES PAIN, DIALYSIS CATH TO RIGHT CHEST AND IV LINE DOUBLE LUMENS TO LEFT IJ, ABDOMEN SWOLLEN WITH HX OF ASCITES, SWOLLEN B/L LEGS, CARDOZA IN PLACE WITH MINIMAL YELLOW URINE, PATIENT INSTRUCTED TO CALL NURSE WITH ANY CONCERN AND EXPLAIN PLAN OF CARE, WILL CONTINUE TO MONITOR.
--- NOTE | 2022-05-13 08:17 | NUR ---
ALL CONSULTS BEEN NOTIFIED, WILL CONTINUE TO MONITOR.
--- NOTE | 2022-05-13 08:19 | NUR ---
PATIENT HAS BREAKFAST.
--- NOTE | 2022-05-13 08:43 | NUR ---
REPORT GIVEN AT BEDSIDE TO ABDULLAHI HORTON
[2022-05-13 08:46] LABS: BILIRUBIN,URINE NEGATIVE (NEGATIVE); BLOOD, URINE 3+ (NEGATIVE); CLARITY/URINE TURBID (CLEAR); COLOR,URINE YELLOW (YELLOW); GLUCOSE,URINE NEGATIVE (NEGATIVE); KETONES,URINE 1+ (NEGATIVE); LEUKOCYTE ESTERASE ,URINE 1+ (NEGATIVE); NITRITE, URINE NEGATIVE (NEGATIVE); PROTEIN URINE 2+ (NEGATIVE); UROBILINOGEN,URINE 0.2 (0.2-1.0)
--- NOTE | 2022-05-13 08:50 | NUR ---
HYGIENE RECEIVED PT IN ROOM 129 ( ICU OVERFLOW), PT ALERT, ON LEVOPHED DRIP AT 0.45 MCG/KG/MIN, INFUSING THRU LEFT EXTERNAL JUGULAR CATHETER, CARDOZA CATHETER INTACT, URINE IN THE TUBING, NONE IN THE DRAINAGE BAG. PT INCONTINENT OF BOWEL, GOOD PERINEAL CARE RENDERED, MOISTURE BARRIER CREAM APPLIED TO GROIN AND BUTTOCKS, FOAM TO SACRAL AREA APPLIED AND LEFT HIP.
[2022-05-13 09:18] LABS: BACTERIA,URINE MODERATE /HPF (None Seen); MUCUS,URINE 1+ /LPF (None Seen)
--- NOTE | 2022-05-13 10:05 | NUR ---
Patient will be admitted to care of [facility]. Admitted to icu unit. Will go to room 127. Belongings list completed. Complete and up to date summary report printed. SBAR report to be given at bedside with opportunity for questions.
[2022-05-13] MEDS ORDERED: ALBUTEROL SULFATE 0.083% 2.5 MG/3 ML VIAL.NEB INH PRN (10:45)
[2022-05-13] MEDS ORDERED: HYDROcodone/ACETAMIN 10-325 MG TAB PO PRN (10:45)
[2022-05-13] MEDS ORDERED: ACETAMINOPHEN 325 MG TABLET PO PRN (10:45)
[2022-05-13] MEDS ORDERED: IPRATROPIUM BROM 0.5 MG/2.5 ML VIAL.NEB (ATROVENT) INH PRN (10:45)
[2022-05-13] MEDS ORDERED: NALOXONE HCL 0.4 MG/ML AMP (NARCAN) IVP PRN ×2 (10:45)
[2022-05-13] MEDS ORDERED: HYDROcodone/ACETAMIN 5-325 MG TAB (NORCO/ VICODIN) PO PRN (10:45)
[2022-05-13] MEDS: NOREPINEPHRINE BITARTRATE 8 MG in NS 242 ML IV PRN ×2 (10:45→20:56)
[2022-05-13] MEDS ORDERED: NON-FORMULARY MEDICATION (Diphenhydramine Hcl 25 MG) PO PRN (10:45)
--- NOTE | 2022-05-13 11:00 | NUR ---
DIRECTOR OF REIMBURSEMENT DR FRANKLIN SEEN THE PATIENT. ORDERED TO DO ABDOMINAL ULTRASOUND AND DISCONTINUE THE CARDOZA CATHETER.
--- NOTE | 2022-05-13 11:26 | NUR ---
CARDOZA CATHETER PT'S CARDOZA CATHETER REMOVED ORDERED, PERINEAL CARE DONE.
[2022-05-13 12:00] LABS: BASOPHILS % (AUTO) 0.1 % (0.0-2.0); HEMATOCRIT 27.3 % (36-48); HEMOGLOBIN 8.1 g/dL (12.0-16.0); LYMPHOCYTES # (AUTO) 0.6 K/uL (1.0-5.5); LYMPHOCYTES % (AUTO) 2.2 % (20.5-51.5); MEAN CORPUSCULAR HEMOGLOBIN 22 pg (27-31); MEAN CORPUSCULAR HGB CONC 30 % (32-36); MEAN CORPUSCULAR VOLUME 75 fL (79.0-98.0); MONOCYTES # (AUTO) 1.2 K/uL (0.0-1.0); MONOCYTES % (AUTO) 4.6 % (1.7-9.3); NEUTROPHILS # (AUTO) 24.7 K/uL (1.8-7.7); NEUTROPHILS % (AUTO) 93.1 % (40.0-70.0); PLATELET COUNT (AUTO) 308 K/uL (130-430); RED BLOOD CELL COUNT(AUTO) 3.64 MIL/uL (4.2-6.2); RED CELL DISTRIBUTION WIDTH 22.3 % (9.0-15.0); WHITE BLOOD COUNT (AUTO) 26.5 K/uL (4.8-10.8)
[2022-05-13] MEDS ORDERED: DIPHENHYDRAMINE HCL 25 MG CAPSULE PO PRN (12:00)
[2022-05-13] MEDS ORDERED: PIPERACILLIN/TAZO 3.375/DEX-IS 50 ML IV SCH (12:00)
[2022-05-13] MEDS: SEVELAMER CARBONATE 800 MG TABLET PO SCH ×2 (12:00→17:45)
[2022-05-13 12:04] LABS: CREATININE 3.96 mg/dL (0.55-1.30)
[2022-05-13] MEDS ORDERED: VANCOMYCIN HCL 1,000 MG in NS 250 ML IV ONE (13:30)
[2022-05-13] MEDS ORDERED: NORMAL SALINE 5 ML DISP.SYRIN IVF SCH (14:00)
[2022-05-13] MEDS ORDERED: MIDODRINE HCL 5 MG TABLET (PROAMATINE) PO SCH ×2 (14:00→16:55)
[2022-05-13] MEDS: FERROUS SULFATE 325 MG TABLET.DR PO SCH ×2 (14:00→22:05)
--- NOTE | 2022-05-13 15:30 | NUR ---
IV ACCESS MIDLINE IN RIGHT UPPER ARM, CATHETER FLUSHED WITH SALINE, IV ANTIBIOTICS HUNG.
[2022-05-13] MEDS: NORMAL SALINE 5 ML DISP.SYRIN IVF SCH ×2 (15:45→22:06)
[2022-05-13] MEDS: PIPERACILLIN/TAZO 2.25G/DEX-IS 50 ML IV SCH ×2 (15:45→21:19)
[2022-05-13] MEDS ORDERED: ARIP5TAB10 PO (21:11)
[2022-05-13] MEDS ORDERED: MIRT-114 PO (21:15)
[2022-05-13] MEDS ORDERED: DIVA250T PO (21:16)
[2022-05-13] MEDS: MIDODRINE HCL 5 MG TABLET (PROAMATINE) PO SCH (22:05)
[2022-05-14] VITALS (60 sets, daily range): BP systolic 57–146
[2022-05-14] MEDS: ALPRAZolam 0.25 MG TABLET PO PRN (01:34)
[2022-05-14] MEDS: NOREPINEPHRINE BITARTRATE 8 MG in NS 242 ML IV PRN ×2 (03:54→10:37)
[2022-05-14] MEDS: PIPERACILLIN/TAZO 2.25G/DEX-IS 50 ML IV SCH ×2 (05:59→13:35)
--- NOTE | 2022-05-14 06:30 | NUR ---
Pt. A, Ox3. c/o Lt. Hip and abdominal pain relieved by [place] prn x 1; asleep @ this time. ST on the scope. SBP> 90 mmHg on Levophed Drip @ 0.4 mcg/Kg/min. Dr. Gardner made aware of pt. request for reconcil;iation of her Psych meds.; orders obtained; to start today. Pt. had 2 LBM; kept clean and dry. Cardiac and resp. monitoring cont.
[2022-05-14 07:14] LABS: ALBUMIN 1.2 g/dL (3.4-4.8); CALCIUM 8.3 mg/dL (8.4-11.0); CREATININE 4.46 mg/dL (0.55-1.30); PHOSPHORUS 5.1 mg/dL (2.7-4.5); TOTAL BILIRUBIN 0.3 mg/dL (0.0-1.0)
[2022-05-14] MEDS: FERROUS SULFATE 325 MG TABLET.DR PO SCH ×3 (07:47→22:14)
[2022-05-14] MEDS: MIDODRINE HCL 5 MG TABLET (PROAMATINE) PO SCH ×3 (07:47→21:48)
--- NOTE | 2022-05-14 07:54 | NUR ---
report received at bedside pt resting comfortably - pt has ANNEMARIE midline - Levophed @0.4mcg, VS stable will continue to monitor.
--- NOTE | 2022-05-14 07:55 | NUR ---
will follow up with Dr. Kendra huertas Lactic acid.
[2022-05-14 08:28] LABS: EOSINOPHILS % (AUTO) 0.2 % (0.0-4.0); HEMATOCRIT 28.2 % (36-48); HEMOGLOBIN 8.5 g/dL (12.0-16.0); LYMPHOCYTES # (AUTO) 0.6 K/uL (1.0-5.5); MEAN CORPUSCULAR HEMOGLOBIN 22 pg (27-31); MEAN CORPUSCULAR HGB CONC 30 % (32-36); MEAN CORPUSCULAR VOLUME 74 fL (79.0-98.0); MONOCYTES # (AUTO) 1.5 K/uL (0.0-1.0); NEUTROPHILS # (AUTO) 27.3 K/uL (1.8-7.7); PLATELET COUNT (AUTO) 256 K/uL (130-430); RED CELL DISTRIBUTION WIDTH 22.7 % (9.0-15.0); WHITE BLOOD COUNT (AUTO) 29.4 K/uL (4.8-10.8)
[2022-05-14] MEDS: NORMAL SALINE 5 ML DISP.SYRIN IVF SCH ×3 (08:43→21:48)
[2022-05-14] MEDS: SEVELAMER CARBONATE 800 MG TABLET PO SCH ×3 (08:45→18:55)
[2022-05-14] MEDS: NEPHROVITE, (FOLIC ACID/VITAMIN B COMP W-C 1 TAB) PO SCH (08:45)
[2022-05-14] MEDS: AMIODARONE HCL 200 MG TABLET PO SCH (08:48)
[2022-05-14] MEDS: FAMOTIDINE 20 MG TABLET PO SCH (08:49)
[2022-05-14] MEDS: CARVEDILOL 12.5 MG TABLET (COREG) PO SCH (08:50)
[2022-05-14] MEDS: DIVALPROEX SODIUM 250 MG TABLET(DEPAKOTE) PO SCH ×2 (08:50→22:13)
[2022-05-14] MEDS ORDERED: NON-FORMULARY MEDICATION (Amino Acids/Protein Hydrolys (Pro-Stat Liquid) 30 ML) PO SCH (09:00)
[2022-05-14 09:38] LABS: NEUTROPHILS % (AUTO) 92.8 % (40.0-70.0)
[2022-05-14 10:46] LABS: C-REACTIVE PROTEIN QUANT 53.1 mg/dL (0-0.5)
--- NOTE | 2022-05-14 10:49 | NUR ---
skin was assessed skin tear on left hip - picture in the chart - oozing - optifoam soaked - removed sacrum denuded, red, blisters noted - pt cleaned - zinc guard applied, pt encouraged to reposition often vaginal area red, zinc guard applied bilateral groin area red, skin tear noted , zinc guard applied R.interior FA - bruise noted L.Heel blanchable redness noted with sloughing skin - bilateral feet elevated on pillows - pt educated regarding importance of floating her heels - pt non compliant, pt removed pillows.
--- NOTE | 2022-05-14 10:53 | NUR ---
BM x 1 - dark green
--- NOTE | 2022-05-14 11:39 | NUR ---
Dietitian Recommendations * Continue renal standard diet * Ordered Nancy CHURCH, instead of Ensure Enlive * Encourage good PO intake GS, MPH, RD Please refer to RD Assessment for further details. Thanks! Addendum: 05/14/22 at [address] Amended: Links added.
[2022-05-14 12:06] LABS: ERYTHROCYTE SEDIMENTATION RATE 44 MM/HR (0-20)
--- NOTE | 2022-05-14 12:18 | NUR ---
encouraged pt to turn frequently - pt refused stated "I don't want to" educated pt on the importance of turning as her sacrum is denuded/excoriated, has blisters and is red pt stated "i understand but i dont want to" and became very emotional. explained to pt that we want to ensure her skin does not deteriorate, stated "i understand" pt refused to be turned.
--- NOTE | 2022-05-14 14:24 | NUR ---
SPOLE WITH XAVIER REQUESTING ORDERS FROM DR. GARCIA. WAS NOTIFIED THAT DR PORTILLO IS COVERING FOR THE PHYSICIAN AND RELAYED MESSAGE TO DR. PORTILLO. .
--- NOTE | 2022-05-14 14:34 | NUR ---
consent obtained for dialysis - consent placed inside chart
--- NOTE | 2022-05-14 14:34 | NUR ---
informatica came to assess pt pt refused to turn refused to have heels floated education provided
--- NOTE | 2022-05-14 14:35 | NUR ---
call placed to primary regarding paracenthesis
--- NOTE | 2022-05-14 14:35 | NUR ---
ID visited with pt
--- NOTE | 2022-05-14 15:15 | NUR ---
WOUND EVALUATION: Wound Consult received from Dr. Pringle. Thank you, Dr. Pringle, for the consult. Patient received in a Leonard Bed with an Atmos-Air 9000 mattress, awake, alert, confused. Patient is unable to turn independently. Sammy Score is a 13. Past Medical History: End-stage Renal Disease, Hemodialysis dependent, GERD, Hypertension, Hypertensive Kidney Disease, Anemia of Chronic Disease, AV fistula. Recent Labs: WBC 29.4, RBC 3.80, hemoglobin 8.5, hematocrit 28.2, ESR 44, BUN 42, creatinine 4.46, GFR 11, calcium 8.3, phosphorus 5.1, alkaline phosphatase 447, C-reactive protein 53.1, serum total protein 4.8, albumin 1.2, glucose 144. Microbiology: Blood culture results x2 in progress. MRSA screen results x2 in progress. Intrinsic factors that delay wound healing: End-stage Renal Disease, Anemia of Chronic Disease, Hyperglycemia, severe Hypoalbuminemia. Extrinsic factors that delay wound healing: Decreased mobility. Wound Assessment: 1. Perineal area: IAD with erythema, present on admission. Recommend: Cleanse involved areas with mild soap and water. Gently pat dry. Apply nystatin powder to involved areas. Insert Interdry Ag cloth into inguinal folds. Perform site care twice daily. Change Interdry AG, every 5 days and as needed for cloth soiling. 2. Intergluteal Fold: Intertrigo with MASD. Site has 100% pink tissue. No odor, no drainage. Periwound intact. Recommend: Cleanse site with normal saline. Apply Calmoseptine cream to involved area. Apply Venelex ointment to any areas not covered by Calmoseptine cream. Cover site with foam dressing (fold foam dressing over fingers and push into intergluteal fold, then spread adhesive portion of dressing over buttock areas). Perform site care daily, and as needed for dressing soiling or dislodgment. 3. Left Lateral Hip: Dried skin tear from adhesive. No odor, no drainage. Recommend: Cleanse site with mild soap and water. Gently pat dry. Apply moisture barrier cream to involved area. Perform site care daily, and as needed for dressing soiling or dislodgment. 4. Left Posterior Heel: Blanchable redness, present on admission. 5. Right Posterior Heel: Blanchable redness, present on admission. Recommend: Cover sites with foam dressings for protection. Elevate, offload and float bilateral heels with 1 pillow lengthwise under each extremity at all times. Do not allow heels to touch bed or other surfaces at any time. Check heels every shift with peel and peek technique. Also recommend: Reposition patient every 2 hours with pillow support and off-load pressure areas with pillows for pressure re-distribution. Offload, elevate and float bilateral heels with 1 pillow lengthwise under each extremity at all times. Perform skin care and monitor skin integrity Q shift. Use Calmoseptine cream on buttocks and other moisture susceptible areas QID and as needed for soiling. Place patient on a low air-loss mattress.
--- NOTE | 2022-05-14 15:29 | NUR ---
DIALYSIS STARTED LEVO MAXED ALBUMIN TO BE STARTED
[2022-05-14] MEDS ORDERED: ALBUMIN HUMAN 25% 200 ML IV ONE ×3 (15:39→17:00)
[2022-05-14] MEDS ORDERED: MENTHOL/ZINC OXIDE 113 GM OINT. TP PRN (16:00)
[2022-05-14] MEDS ORDERED: BALSAM PERU/CASTOR OIL 56.7 GM OINT...G. TP ONE (16:00)
[2022-05-14] MEDS ORDERED: PHENYLEPHRINE HCL 50 MG in NS 245 ML IV PRN (16:00)
[2022-05-14] MEDS ORDERED: NYSTATIN 15 GM TOPICAL POWDER TP ONE (16:00)
[2022-05-14] MEDS ORDERED: NOREPINEPHRINE 4 MG/4 ML VIAL IV ONE (18:31)
[2022-05-14] MEDS: MEROPENEM 500 MG in NS 50 ML IV SCH (18:55)
[2022-05-14] MEDS: NOREPINEPHRINE BITARTRATE 32 MG in NS 218 ML IV PRN (18:56)
[2022-05-14] MEDS: NYSTATIN 15 GM TOPICAL POWDER TP SCH (21:47)
[2022-05-14] MEDS: MIRTAZAPINE 15 MG TABLET PO SCH (22:14)
[2022-05-14] MEDS: ARIPiprazole 2 MG TAB PO SCH (22:14)
[2022-05-15] VITALS (23 sets, daily range): BP systolic 88–140
[2022-05-15] MEDS: NOREPINEPHRINE BITARTRATE 32 MG in NS 218 ML IV PRN ×2 (02:14→18:43)
[2022-05-15] MEDS: MIDODRINE HCL 5 MG TABLET (PROAMATINE) PO SCH ×3 (06:19→21:18)
[2022-05-15] MEDS: FERROUS SULFATE 325 MG TABLET.DR PO SCH ×3 (06:19→21:18)
[2022-05-15] MEDS: MEROPENEM 500 MG in NS 50 ML IV SCH ×2 (06:20→17:15)
--- NOTE | 2022-05-15 06:45 | NUR ---
Pt. drowsy, Ox2, restless and anxious and pulled off On nasal canula multiplke times despite encouragement not to; Dr. Lobo (chief construction inspector for Dr. Romie Pringle) made aware w/ orders for Bi. SW restraints noted and carried out.; desats to 60s to 80s on RA. SR to ST on the scope. On Levophed Drip titrated to 0.4 mcg/Kg/min. Dr. Vinson was consulted to manage pt.'s psych meds. and to R/O suicidal ideation as pt. fouond w/ Nasal Canula around her neck. Denies suicidal ideation; close and frequent psychiatric monitoring cont. Perineal and coccyx wounds cleansed and appled Nystatin powdert, Calmoseptine and Venelex. Given CHG bath. Placed on a new bed; low air loss as ordere. Cardeiac, respiratory and psychiatric monitoring cont. Needs met.
[2022-05-15] MEDS: NORMAL SALINE 5 ML DISP.SYRIN IVF SCH ×3 (06:48→21:18)
--- NOTE | 2022-05-15 08:00 | NUR ---
PATIENT IN BED, NO S/S OF DISTRESS, PER CROP GRAIN OR LIVESTOCK FARM MANAGER RN THE PATIENT WRAPPED THE NASAL CANULA AROUND HER NECK DURING CROP GRAIN OR LIVESTOCK FARM MANAGER, SHE STATED THAT THE PATIENT WAS ASSESSED FOR SUICIDAL IDEATION AND NO RISK NOTED. PRIMARY RN ASKED SUICIDE RISK QUESTIONS AND NO SUICIDAL IDEATION NOTED. PER CROP GRAIN OR LIVESTOCK FARM MANAGER RN DR SOARES HAS BEEN CONSULTED AND CALLED TO [place] COVERING HIM AT [phone], AWAITING TELEHEALTH CALL FROM DR SOARES. PATIENT IN BILATERAL SOFT WRIST RESTRAINT. HISTORY OF BIPOLAR DISORDER AND SCHIZOPHRENIA. ANNEMARIE MIDLINE LEVOPHED 0.4MCG/KG/MIN. R CHEST KE CATH DIALYSIS YESTERDAY 2L OUT. 4L NASAL CANULA. A/OX2. INCONTINENT BOWEL AND BLADDER, REPOSITIONING Q2H BUT PATIENT IS REPOSITIONING SELF SUPINE. SAFETY MEASURES IN PLACE.
[2022-05-15] MEDS: SEVELAMER CARBONATE 800 MG TABLET PO SCH ×3 (08:32→17:15)
[2022-05-15] MEDS: DIVALPROEX SODIUM 250 MG TABLET(DEPAKOTE) PO SCH ×2 (08:32→19:53)
[2022-05-15] MEDS: NEPHROVITE, (FOLIC ACID/VITAMIN B COMP W-C 1 TAB) PO SCH (08:32)
[2022-05-15] MEDS: FAMOTIDINE 20 MG TABLET PO SCH (08:32)
[2022-05-15] MEDS: CARVEDILOL 12.5 MG TABLET (COREG) PO SCH (08:32)
[2022-05-15] MEDS: NYSTATIN 15 GM TOPICAL POWDER TP SCH ×2 (08:33→21:18)
[2022-05-15] MEDS: BALSAM PERU/CASTOR OIL 56.7 GM OINT...G. TP SCH (08:34)
[2022-05-15] MEDS: AMIODARONE HCL 200 MG TABLET PO SCH (08:34)
[2022-05-15 09:07] LABS: CALCIUM 8.6 mg/dL (8.4-11.0); CREATININE 3.54 mg/dL (0.55-1.30)
[2022-05-15 09:18] LABS: HEMATOCRIT 25.4 % (36-48); HEMOGLOBIN 7.6 g/dL (12.0-16.0); MEAN CORPUSCULAR HEMOGLOBIN 22 pg (27-31); MEAN CORPUSCULAR HGB CONC 30 % (32-36); MEAN CORPUSCULAR VOLUME 75 fL (79.0-98.0); PLATELET COUNT (AUTO) 167 K/uL (130-430); RED CELL DISTRIBUTION WIDTH 22.3 % (9.0-15.0); WHITE BLOOD COUNT (AUTO) 27.9 K/uL (4.8-10.8)
[2022-05-15] MEDS ORDERED: ALBUMIN HUMAN 25% 200 ML IV ONE (10:00)
--- NOTE | 2022-05-15 11:07 | NUR ---
SPOKE WITH ULTRASOUND, NEED PT PTT INR PLATELET. NOTIFIED THAT TRYING TO FIND CONTACT TO CONSULT FOR PARACENTESIS BECAUSE PATIENT IS CONFUSED. CALLED MEDICAL RECORDS SPECIALIST LEFT VOICEMAIL.
--- NOTE | 2022-05-15 11:38 | NUR ---
Spoke w/ Patricia-health care social worker at [facility] and [facility], . She stated person to notify is Debra at [phone]. I called this number, a woman answered who said she was not Debra and she did not know Nell Cervantes.
[2022-05-15 11:49] LABS: INR 1.2 (0.8-1.2); PROTHROMBIN TIME 11.7 SECS (9.5-12.5)
--- NOTE | 2022-05-15 12:15 | NUR ---
spoke with daniela case coordinator and she stated that patient was consenting for herself at the facility she was at and they do not have someone to consent for her on file so to get 2 doctors to sign off on the paracentesis. Dr Pringle and Dr Larry signed off on the paracentesis consent. Dr Larry did telephone consent witness by primary rn and Jordan.
[2022-05-15 12:54] LABS: BAND % (MANUAL) 9 % (0-6); BASOPHILS % (MANUAL) 0 % (0-2); EOSINOPHILS % (MANUAL) 1 % (0-7); LYMPHOCYTES % (MANUAL) 2 % (20-46); MONOCYTES % (MANUAL) 3 % (0-11)
--- NOTE | 2022-05-15 13:17 | NUR ---
Nutrition Note RD s/w MANAGER OF DATA regarding this pt's ability to eat regular textured foods. RN attested that pt is unable to eat this texture and requested that pt be put on puree. RD agreed with the downgrading of diet and entered the order for "Renal standard, puree." TORI, MPH, RD
[2022-05-15] MEDS ORDERED: VANCOMYCIN HCL 1,000 MG in NS 250 ML IV ONE (14:00)
--- NOTE | 2022-05-15 16:00 | NUR ---
CALLED DR SOARES'S OFFICE AGAIN TO FOLLOW UP ON TELEHEALTH ORDER THAT WAS CALLED IN DURING WIRE ROLLER. CONSULT CONFIRMED. AWAITING DR SOARES TELEHEALTH CALL.
--- NOTE | 2022-05-15 16:07 | NUR ---
dr banuelos rounded on patient, notified that patient has increased confusion and fatigue but patient does answer questions and follow commands. notified of psych drug regimen. ordered to check ammonia levels and continue drug regimen. riprap placing supervisor at bedside agrees to plan of care.
--- NOTE | 2022-05-15 16:36 | NUR ---
DR GARCIA ORDERED TO GIVE ALBUMIN ORDER NOW.
--- NOTE | 2022-05-15 16:53 | NUR ---
SPOKE WITH KAYLEIGH REQUESTING TELE CONSULT FROM DR. SOARES.
--- NOTE | 2022-05-15 18:00 | NUR ---
SPOKE WITH BALDOMERO FOLLOWING-UP ON TELE CONSULT FOR DR. SOARES
--- NOTE | 2022-05-15 18:07 | NUR ---
CALLED DR SOARES'S OFFICE FOR THE THIRD TIME TO FOLLOW UP ON TELEHEALTH ORDER. CONSULT CONFIRMED. AWAITING DR SOARES TELEHEALTH CALL.
--- NOTE | 2022-05-15 18:55 | NUR ---
ENDORSED CONTINUATION OF CARE TO SULAIMAN BOLT THREADER RN.
[2022-05-15] MEDS: ARIPiprazole 2 MG TAB PO SCH (19:53)
[2022-05-15] MEDS: MIRTAZAPINE 15 MG TABLET PO SCH (19:53)
[2022-05-16] VITALS (24 sets, daily range): BP systolic 85–135
[2022-05-16 05:42] LABS: EOSINOPHILS # (AUTO) 0.1 K/uL (0.0-0.4); EOSINOPHILS % (AUTO) 0.6 % (0.0-4.0); HEMATOCRIT 23.5 % (36-48); HEMOGLOBIN 7.2 g/dL (12.0-16.0); LYMPHOCYTES # (AUTO) 0.5 K/uL (1.0-5.5); LYMPHOCYTES % (AUTO) 2.4 % (20.5-51.5); MEAN CORPUSCULAR HEMOGLOBIN 23 pg (27-31); MEAN CORPUSCULAR HGB CONC 31 % (32-36); MEAN CORPUSCULAR VOLUME 74 fL (79.0-98.0); MONOCYTES % (AUTO) 4.9 % (1.7-9.3); NEUTROPHILS # (AUTO) 18.6 K/uL (1.8-7.7); NEUTROPHILS % (AUTO) 92.1 % (40.0-70.0); PLATELET COUNT (AUTO) 145 K/uL (130-430)
[2022-05-16] MEDS: MEROPENEM 500 MG in NS 50 ML IV SCH ×2 (05:45→17:46)
[2022-05-16] MEDS: NORMAL SALINE 5 ML DISP.SYRIN IVF SCH ×3 (05:46→21:09)
[2022-05-16] MEDS: MIDODRINE HCL 5 MG TABLET (PROAMATINE) PO SCH ×3 (05:46→21:09)
[2022-05-16] MEDS: FERROUS SULFATE 325 MG TABLET.DR PO SCH ×3 (05:46→21:09)
[2022-05-16 06:12] LABS: ALBUMIN 3.2 g/dL (3.4-4.8); CALCIUM 8.8 mg/dL (8.4-11.0); CREATININE 4.05 mg/dL (0.55-1.30); TOTAL BILIRUBIN 0.7 mg/dL (0.0-1.0)
[2022-05-16 07:14] LABS: WHITE BLOOD COUNT (AUTO) 20.2 K/uL (4.8-10.8)
[2022-05-16] MEDS: CARVEDILOL 12.5 MG TABLET (COREG) PO SCH (08:19)
[2022-05-16] MEDS: NEPHROVITE, (FOLIC ACID/VITAMIN B COMP W-C 1 TAB) PO SCH (08:21)
[2022-05-16] MEDS: FAMOTIDINE 20 MG TABLET PO SCH (08:21)
[2022-05-16] MEDS: AMIODARONE HCL 200 MG TABLET PO SCH (08:21)
[2022-05-16] MEDS: SEVELAMER CARBONATE 800 MG TABLET PO SCH ×3 (08:21→17:46)
[2022-05-16] MEDS: DIVALPROEX SODIUM 250 MG TABLET(DEPAKOTE) PO SCH ×2 (08:21→21:08)
[2022-05-16] MEDS: NYSTATIN 15 GM TOPICAL POWDER TP SCH ×2 (08:22→21:08)
[2022-05-16] MEDS: BALSAM PERU/CASTOR OIL 56.7 GM OINT...G. TP SCH (08:22)
[2022-05-16] MEDS ORDERED: DARBEPOETIN ALFA IN POLYSORBAT 40 MCG IJ SCH (09:00)
--- NOTE | 2022-05-16 10:57 | NUR ---
PATIENT IN BED, NO S/S OF DISTRESS. PER MANAGER PERFORMANCE RN THE DR SOARES CALLED FOR TELE HEALTH CONSULT BUT PATIENT WAS NOT AWAKE ENOUGH TO PERRFORM THE CONSULT SO HE WILL BE CALLING BACK TO DO ANOTHER TELE HEALTH CONSULT TODAY OR WILL COME IN PERSON TO ASSESS THE PATIENT. PATIENT IN BILATERAL SOFT WRIST RESTRAINT. HISTORY OF BIPOLAR DISORDER AND SCHIZOPHRENIA. ANNEMARIE MIDLINE LEVOPHED 0.28MCG/KG/MIN. PARACENTESIS SCHEDULED FOR TODAY, WAS ORDERED YESTERDAY. 4L NASAL CANULA. A/OX3. REPOSITIONING Q2H BUT PATIENT IS REPOSITIONING SELF SUPINE. SAFETY MEASURES IN PLACE.
--- NOTE | 2022-05-16 11:08 | NUR ---
DR SAUER ROUNDED ON PATIENT, PRIOR TO ROUNDING PATIENT WAS NOT SPEAKING CLEARLY AND SPEECH WAS VERY LOW AND USED NOTEPAD TO ANSWER A/O QUESTIONS PATIENT IS A/OX3, ONCE DR SAUER CAME INTO THE ROOM THE PATIENT WAS SPEAKING IN FULL SENTENCES. DR GARCIA ROUNDED ON PATIENT, ORDERED TO GIVE ALBUMIN NOW AND HAVE PARACENTESIS. PERFORMED TODAY. DR HERNANDEZ WAITING FRONT WORKER FROM DR GASPAR. PAGED DR GASPAR AND PROVIDED DR HERNANDEZ'S PHONE NUMBER.
[2022-05-16] MEDS ORDERED: ALBUMIN HUMAN 25% 200 ML IV ONE (11:45)
[2022-05-16] MEDS: NOREPINEPHRINE BITARTRATE 32 MG in NS 218 ML IV PRN (15:39)
--- NOTE | 2022-05-16 16:20 | NUR ---
PATACENTESIS PERFORMED, 5,850ML REMOVED. PATIENT TOLERATED WELL. LEVOPHED NOW AT 0.6MCG/KG/MIN AND ALBUMIN DOSE INFUSED.
--- NOTE | 2022-05-16 17:45 | NUR ---
Nutrition F/U: Admitting Diagnosis: Respiratory failure, PNA Reviewed Pertinent Medical/Surgical Hx Medical Record; VENDING ATTENDANT Medical History Comment: per EMR: 61-year-old female who was brought in d/t hypotension. The patient was receiving dialysis when she became hypotensive. The patient was unable to complete her dialysis appointment. EMS reported the patient's blood pressure was 80 systolic in the field. PMHx: schizophrenia 05/14 S/p HD 2L removed 05/16 S/p paracentesis 6L removed Subjective Information: RD rounded to ICU and s/w RN. Patient is on renal pureed diet and tolerating PO. Per EMR review, patient noted with fair PO intake, 50% average x 4 documented meals. LBM noted 05/15 and patient with distended abdomen (ascites) and active bowel sounds. Patient had psych consult called for possible SI after patient found in bed with NC wrapped around her neck plus confusion and slurred speech. Patient on soft restraints. Current HD schedule TThS, with next HD scheduled 05/17. Patient currently on 4L NC. Per RN notes, pending possible hospice evaluation. RD visited patient at bedside and witnessed patient sleeping with NS infusing at 5mL. RD unable to wake patient at time of visit. Current Diet Order/Nutrition Support: Renal, Puree Diet + Nepro ONS TID x 1 day Pertinent Medications: Amiodarone, Fe, Levophed, neosynephrine, Pepcid, nephrovite, ProAmatine, NS, Renvela Pertinent Labs: BUN 40 H, Cre 4.05H, BG 115 H, WBC 20.2 H, Anion Gap 17 H, ALP 255 H Height (Feet) 5 feet Height (Inches) 5.00 inches Weight (Pounds) 174 pounds Patient Weight 78.925 kg Body Mass Index 28.95 kg/m2 %IBW 139 [place]/Adjusted Body Weight 125#/57 kg/ ABW 63 kg Recent Weight Change No - Per RN screen Weight Status Overweight Gastrointestinal Symptoms None per EMR Last BM May 15, 2022 x 1 Skin Integrity Comment: Sammy Score 13: Blanchable redness BL heels, skin tear L-hip; intertriginous dermatitis/ denuded perineal area Edema: +3 BL pitting edema noted 05/16 Current % PO Fair: avg PO 50% x 4 documented meals Estimated Energy Expenditure (kcals/day) 0890-6206 kcal (30-35 kcal/kg Adj BW d/t ESRD on HD, sepsis) NEW* Estimated Protein Required (g/day) 76-95g (1.2-1.5 g/kg Adj BW d/t ESRD on HD, sepsis) Estimated Fluid Required (l/day) Refer to MD (ESRD) Problem/Etiology/Signs/Symptoms * Altered nutrition-related lab values r/t renal dysfunction AEB high BUN/Cre (On-going) Expected Outcomes/Goals PO intake provides >85% estimated nutrient needs, nutrition-related labs trending WNL, continued skin integrity, BM q1-3 days Dietitian Recommendations * Continue renal, pureed diet + Nepro TID (ONS yields 1275 kcal/day, 57g PRO/day) * Continue Nephro-nimo Follow Up High Risk: F/U in 2-3days Addendum: 05/17/22 at [address] Nutrition Consult Received 05/14/21 @ 1600 for wound NEW Dietitian Recommendations * Continue renal, pureed diet + Nepro TID (ONS yields 1275 kcal/day, 57g PRO/day) * Continue Nephrovite * Odered: Abimael BID
--- NOTE | 2022-05-16 17:50 | NUR ---
Dietitian Recommendations * Continue renal, pureed diet + Nepro TID (ONS yields 1275 kcal/day, 57g PRO/day) * Continue Nephro-nimo Please refer to nutrition f/u for details, thanks! Nelly Pedroza MPH, AMAIRANI Addendum: 05/17/22 at [address] NEW Dietitian Recommendations * Continue renal, pureed diet + Nepro TID (ONS yields 1275 kcal/day, 57g PRO/day) * Continue Nephro-nimo * Ordered: Abimael BID
--- NOTE | 2022-05-16 18:58 | NUR ---
PAGED DR SOARES AGAIN DURING SHIFT TO FOLLOW UP ON CONSULT FOR TELE HEALTH. CONSULT STILL NOT DONE.
--- NOTE | 2022-05-16 19:30 | NUR ---
Pt report received. Pt alert, responsive, O2 at 4 LPM/NC, respirations even and non-labored. Andrew Cath to right chest wall and ANNEMARIE midline secure with Levophed drip infusing at 0.6 mcg/kg/min to ANNEMARIE midline. Soft wrist restraints in place. No c/o pain or discomfort, VSS, NAD.
[2022-05-16 20:12] LABS: BODY FLUID SOURCE/ TYPE PARACENTESIS; SOURCE/TYPE ,BODY FLUID PARACENTESIS
[2022-05-16 20:13] LABS: BODY FLUID TOTAL VOLUME 6150 mL
[2022-05-16] MEDS: MIRTAZAPINE 15 MG TABLET PO SCH ×2 (21:00→21:08)
[2022-05-16] MEDS: ARIPiprazole 2 MG TAB PO SCH (21:08)
[2022-05-16 21:43] LABS: BF APPEARANCE UNSPUN HAZY (CLEAR); BODY FLUID COLOR YELLOW (LT YELLOW); WBC, BODY FLUID 1030 /uL
[2022-05-16 21:44] LABS: BODY FLUID OTHER CELLS 0 %; EOSINOPHIL, BODY FLUID 0 %; LYMPHOCYTES, BODY FLUID 6 %; MONOCYTES,BODY FLUID 3 %; RBC, BODY FLUID 5100 /uL
[2022-05-16 21:45] LABS: PH, BODY FLUID >7
[2022-05-16 21:47] LABS: NEUTROPHIL, BODY FLUID 91 %
--- NOTE | 2022-05-16 23:10 | NUR ---
Pt placed on BiPAP per RT. GABRIEL, 18, 450, 50%, 5. Addendum: 05/17/22 at 0030 by Nicanor Reaves RN 05/17/2022 0029 EIC: Vargas pt.
[2022-05-17] VITALS (22 sets, daily range): BP systolic 90–147
[2022-05-17] MEDS: NOREPINEPHRINE BITARTRATE 32 MG in NS 218 ML IV PRN ×2 (03:06→11:36)
[2022-05-17 06:19] LABS: BASOPHILS % (AUTO) 0.1 % (0.0-2.0); EOSINOPHILS # (AUTO) 0.1 K/uL (0.0-0.4); EOSINOPHILS % (AUTO) 0.3 % (0.0-4.0); HEMATOCRIT 27.1 % (36-48); HEMOGLOBIN 8.2 g/dL (12.0-16.0); LYMPHOCYTES # (AUTO) 0.6 K/uL (1.0-5.5); LYMPHOCYTES % (AUTO) 2.6 % (20.5-51.5); MEAN CORPUSCULAR HEMOGLOBIN 22 pg (27-31); MEAN CORPUSCULAR HGB CONC 30 % (32-36); MEAN CORPUSCULAR VOLUME 74 fL (79.0-98.0); MONOCYTES # (AUTO) 1.4 K/uL (0.0-1.0); MONOCYTES % (AUTO) 5.8 % (1.7-9.3); NEUTROPHILS # (AUTO) 21.5 K/uL (1.8-7.7); PLATELET COUNT (AUTO) 156 K/uL (130-430); RED BLOOD CELL COUNT(AUTO) 3.64 MIL/uL (4.2-6.2); RED CELL DISTRIBUTION WIDTH 22.2 % (9.0-15.0); WHITE BLOOD COUNT (AUTO) 23.6 K/uL (4.8-10.8)
[2022-05-17] MEDS: MEROPENEM 500 MG in NS 50 ML IV SCH ×2 (06:54→17:46)
[2022-05-17] MEDS: NORMAL SALINE 5 ML DISP.SYRIN IVF SCH ×3 (06:55→22:00)
[2022-05-17] MEDS: FERROUS SULFATE 325 MG TABLET.DR PO SCH ×3 (06:55→22:14)
[2022-05-17] MEDS: MIDODRINE HCL 5 MG TABLET (PROAMATINE) PO SCH ×3 (06:56→22:14)
--- NOTE | 2022-05-17 07:15 | NUR ---
Pt report given to oncoming RN. Pt resting quietly with eyes closed, O2 at 4 LPM/NC with VSS and NAD. Levophed drip infusing to ANNEMARIE Midline at 0.63 mcg/kg/min.
[2022-05-17 07:16] LABS: CALCIUM 8.6 mg/dL (8.4-11.0); CREATININE 4.79 mg/dL (0.55-1.30); VANCOMYCIN,RANDOM 21.1 ug/mL
[2022-05-17 07:41] LABS: NEUTROPHILS % (AUTO) 91.2 % (40.0-70.0)
--- NOTE | 2022-05-17 07:47 | NUR ---
SPOKE WITH GEOFFREY REGARDING TELE MED CONSULT FOR DR. SOARES. INFORMED THAT DR. MOJICA IS COVERING AND WILL BE PAGED
--- NOTE | 2022-05-17 07:51 | NUR ---
PATIENT IN BED, NO S/S OF DISTRESS. PER REAL ESTATE REP RN DR SOARES DID NOT CALL FOR ANOTHER TELE HEALTH CONSULT OR ROUND ON THE PATIENT DESPITE BEING PAGED DURING DAY SHIFT 05/16/22. PAGED GROUP AT [phone] THIS MORNING AND NOTIFIED THAT DR. MOJICA IS MOTOR BRAKEMAN AND WILL BE RETURNING THE PAGE. PATIENT IN BILATERAL SOFT WRIST RESTRAINTS. HISTORY OF BIPOLAR DISORDER AND SCHIZOPHRENIA. ANNEMARIE MIDLINE LEVOPHED 0.63MCG/KG/MIN. PARACENTESIS PERFORMED YESTERDAY, DUE FOR DIALYSIS TODAY. 4L NASAL CANULA. REPOSITIONING Q2H BUT PATIENT IS REPOSITIONING SELF SUPINE. SAFETY MEASURES IN PLACE.
--- NOTE | 2022-05-17 08:22 | NUR ---
RECEIVED CALL BACK FROM DR RODGER ROGEL, PROVIDED FULL REPORT ON PATIENT INCLUDING THAT SHE HAS INCREASED CONFUSION, SLURRED SPEECH, INTERMITTENTLY SLEEPING, AROUSES TO PHYSICAL TOUCH, MALIGNANT ASCITES, PARACENTESIS, PSYCH MEDS INCLUDE RISPERDAL ABILIFY AND REMERON, PER CHART PATIENT HAS HISTORY OF BIPOLAR DISORDER AND SCHIZOPHRENIA. DR SOARES STATED THAT HE WILL LOOK THROUGH HER CHART AND CALL BACK WITH HIS RECOMMENDATIONS/ ORDERS.
[2022-05-17] MEDS: CARVEDILOL 12.5 MG TABLET (COREG) PO SCH (09:00)
[2022-05-17] MEDS: AMIODARONE HCL 200 MG TABLET PO SCH (09:00)
--- NOTE | 2022-05-17 09:51 | NUR ---
SPOKE WITH RD FOR NEW CONSULT FOR DR. GELLER.
[2022-05-17] MEDS ORDERED: ALBUMIN HUMAN 25% 100 ML IV ONE (10:00)
[2022-05-17] MEDS: FAMOTIDINE 20 MG TABLET PO SCH (10:03)
[2022-05-17] MEDS: NEPHROVITE, (FOLIC ACID/VITAMIN B COMP W-C 1 TAB) PO SCH (10:03)
[2022-05-17] MEDS: DIVALPROEX SODIUM 250 MG TABLET(DEPAKOTE) PO SCH ×2 (10:03→22:13)
[2022-05-17] MEDS: SEVELAMER CARBONATE 800 MG TABLET PO SCH ×4 (10:03→18:40)
[2022-05-17] MEDS: NYSTATIN 15 GM TOPICAL POWDER TP SCH ×2 (10:04→22:13)
[2022-05-17] MEDS: BALSAM PERU/CASTOR OIL 56.7 GM OINT...G. TP SCH (10:04)
--- NOTE | 2022-05-17 10:43 | NUR ---
DR GARCIA ROUNDED ON PATIENT, RN NOTIFIED HIM THAT PATIENT HAD PARACENTESIS YESTERDAY, RODGER CALLED THIS MORNING, AND FOLLOWED UP ON PATIENT CANCER STATUS AND CALL FROM [facility]. DR GARCIA ORDERED TO GIVE 25% ALBUMIN 100ML, CONSULT DR. GELLER AND HAVE HIM LOOK INTO PATIENT STATUS AND IF HOSPICE EVALUATION IS INDICATED.
[2022-05-17] MEDS ORDERED: HEPARIN SODIUM,PORCINE 5,000 UNITS/ML VIAL MC ONE (12:30)
[2022-05-17 12:58] LABS: BODY FLUID GLUCOSE 29 mg/dL; BODY FLUID TOTAL PROTEIN 3.2 g/dL
[2022-05-17] MEDS: ARIPiprazole 2 MG TAB PO SCH (22:12)
[2022-05-17] MEDS: MIRTAZAPINE 15 MG TABLET PO SCH (22:13)
[2022-05-18] VITALS (23 sets, daily range): BP systolic 77–138
[2022-05-18 05:54] LABS: BASOPHILS # (AUTO) 0.1 K/uL (0.0-0.2); BASOPHILS % (AUTO) 0.2 % (0.0-2.0); EOSINOPHILS # (AUTO) 0.1 K/uL (0.0-0.4); EOSINOPHILS % (AUTO) 0.2 % (0.0-4.0); HEMATOCRIT 27.5 % (36-48); HEMOGLOBIN 8.3 g/dL (12.0-16.0); LYMPHOCYTES % (AUTO) 2.9 % (20.5-51.5); MEAN CORPUSCULAR HEMOGLOBIN 22 pg (27-31); MEAN CORPUSCULAR HGB CONC 30 % (32-36); MEAN CORPUSCULAR VOLUME 74 fL (79.0-98.0); MONOCYTES # (AUTO) 1.6 K/uL (0.0-1.0); MONOCYTES % (AUTO) 4.8 % (1.7-9.3); NEUTROPHILS # (AUTO) 30.2 K/uL (1.8-7.7); PLATELET COUNT (AUTO) 141 K/uL (130-430); RED CELL DISTRIBUTION WIDTH 22.8 % (9.0-15.0)
[2022-05-18] MEDS: NORMAL SALINE 5 ML DISP.SYRIN IVF SCH ×3 (06:00→21:11)
[2022-05-18] MEDS: MEROPENEM 500 MG in NS 50 ML IV SCH ×2 (06:01→20:16)
[2022-05-18] MEDS: FERROUS SULFATE 325 MG TABLET.DR PO SCH ×3 (06:01→21:10)
[2022-05-18] MEDS: MIDODRINE HCL 5 MG TABLET (PROAMATINE) PO SCH ×3 (06:02→21:11)
[2022-05-18 07:07] LABS: CALCIUM 8.4 mg/dL (8.4-11.0); CREATININE 3.49 mg/dL (0.55-1.30)
[2022-05-18 08:19] LABS: NEUTROPHILS % (AUTO) 91.9 % (40.0-70.0)
[2022-05-18] MEDS: AMIODARONE HCL 200 MG TABLET PO SCH (09:00)
[2022-05-18] MEDS: NEPHROVITE, (FOLIC ACID/VITAMIN B COMP W-C 1 TAB) PO SCH (09:00)
[2022-05-18] MEDS ORDERED: VANCOMYCIN HCL 500 MG in NS 100 ML IV ONE (09:00)
[2022-05-18] MEDS: FAMOTIDINE 20 MG TABLET PO SCH (09:00)
[2022-05-18] MEDS: DIVALPROEX SODIUM 250 MG TABLET(DEPAKOTE) PO SCH ×2 (09:00→21:10)
[2022-05-18] MEDS: BALSAM PERU/CASTOR OIL 56.7 GM OINT...G. TP SCH (09:01)
[2022-05-18] MEDS: NYSTATIN 15 GM TOPICAL POWDER TP SCH ×2 (09:01→21:12)
[2022-05-18] MEDS: NOREPINEPHRINE BITARTRATE 32 MG in NS 218 ML IV PRN (10:05)
[2022-05-18] MEDS ORDERED: GASTROGRAFIN 120 ML ONE (11:05)
--- NOTE | 2022-05-18 11:15 | NUR ---
ORAL CONTRAST STARTED, PROVIDED AND MIXED IN WATER BY CHURCH OFFICIAL. TO COMPLETE IN 1 HOUR IF POSSIBLE, THEN WAIT ONE HOUR FOR CT SCAN. PT VSS. NAD NOTED. AAOX1-2, FORGETFUL, LETHARGIC AND CONFUSED AT TIMES. WILL CONT TO MONITOR PT.
--- NOTE | 2022-05-18 12:28 | NUR ---
CALLBACK FROM MD GARCIA, UPDATED THAT PATIENT CANNOT TOLERATE PO CONTRAST, UNABLE TO DRINK THAT LARGE SUM OF LIQUIDS. OK TO JUST DO SCAN WITH IV CONTRAST THEN HEMODIALYSIS AFTER. ALSO INSTRUCTED TO PUT MEDICAL NECESSITY IN NOTES FOR CT SCAN SINCE PATIENT IS CONFUSED AND HAS NO POINT OF CONTACT TO GAIN TELEPHONE CONSENT. BRAND DEVELOPMENT MANAGER MARY AND ABDULLAHI BRODY, PRIMARY RN RECEIVED TELEPHONE CONSENT FOR MEDICALLY NECESSARY SCAN PER MD Romie GARCIA.
[2022-05-18] MEDS: SEVELAMER CARBONATE 800 MG TABLET PO SCH ×2 (12:30→18:00)
--- NOTE | 2022-05-18 12:55 | NUR ---
SPOKE TO ARTIS FINNEGAN LIFE SKILLS SPECIALIST AND PROVIDED UPDATE ON PATIENT. CONFIRMED THAT HOSPICE CONSULT ORDER PLACED YESTERDAY 05/17/22 AT 1345 FOR EXPLANATION OF BENEFITS. MONICA FINNEGAN UNABLE TO REACH [facility] MONICA RUSSELL AT THIS TIME.
[2022-05-18] MEDS ORDERED: HEPARIN SODIUM,PORCINE 5,000 UNITS/ML VIAL ONE (18:36)
[2022-05-18] MEDS ORDERED: HEPARIN SODIUM, PORCINE 10,000 UNITS/ 10 ML VIAL MC ONE (18:45)
--- NOTE | 2022-05-18 20:02 | NUR ---
HEMODIALYSIS done completed @ the bedside , patient is awake verbally responsive 02 SAT 96 %
[2022-05-18] MEDS: ARIPiprazole 2 MG TAB PO SCH (21:11)
[2022-05-18] MEDS: MIRTAZAPINE 15 MG TABLET PO SCH (21:11)
--- NOTE | 2022-05-18 22:27 | NUR ---
Due medications given with apple sauce po patient kept in up right position activity tolerated no s/x of aspiration continue to monitor / .
[2022-05-19] VITALS (25 sets, daily range): BP systolic 91–128
--- NOTE | 2022-05-19 00:46 | NUR ---
SOFT WRIST Restraints in place bilat. patient pulls on tubes also fall Risk / assessment wnl comfort measures implemented kept clean & dry as needed .
--- NOTE | 2022-05-19 04:34 | NUR ---
Linin change wound care provided as ordered , partial bed bath given activity tolerated / .
[2022-05-19] MEDS: MEROPENEM 500 MG in NS 50 ML IV SCH ×2 (05:43→18:18)
[2022-05-19] MEDS: MIDODRINE HCL 5 MG TABLET (PROAMATINE) PO SCH ×3 (05:43→21:09)
[2022-05-19] MEDS: FERROUS SULFATE 325 MG TABLET.DR PO SCH ×3 (05:43→21:05)
[2022-05-19] MEDS: NORMAL SALINE 5 ML DISP.SYRIN IVF SCH ×3 (05:44→21:09)
[2022-05-19 07:22] LABS: BASOPHILS % (AUTO) 0.1 % (0.0-2.0); EOSINOPHILS # (AUTO) 0.1 K/uL (0.0-0.4); EOSINOPHILS % (AUTO) 0.4 % (0.0-4.0); HEMATOCRIT 26.9 % (36-48); HEMOGLOBIN 8.2 g/dL (12.0-16.0); LYMPHOCYTES # (AUTO) 0.9 K/uL (1.0-5.5); LYMPHOCYTES % (AUTO) 2.9 % (20.5-51.5); MEAN CORPUSCULAR HEMOGLOBIN 23 pg (27-31); MEAN CORPUSCULAR HGB CONC 31 % (32-36); MEAN CORPUSCULAR VOLUME 74 fL (79.0-98.0); MONOCYTES # (AUTO) 1.5 K/uL (0.0-1.0); NEUTROPHILS # (AUTO) 27.3 K/uL (1.8-7.7); PLATELET COUNT (AUTO) 131 K/uL (130-430); RED BLOOD CELL COUNT(AUTO) 3.64 MIL/uL (4.2-6.2); RED CELL DISTRIBUTION WIDTH 22.9 % (9.0-15.0); WHITE BLOOD COUNT (AUTO) 29.8 K/uL (4.8-10.8)
[2022-05-19 07:42] LABS: ALBUMIN 2.1 g/dL (3.4-4.8); CALCIUM 8.4 mg/dL (8.4-11.0); CREATININE 2.7 mg/dL (0.55-1.30); TOTAL BILIRUBIN 0.6 mg/dL (0.0-1.0); VANCOMYCIN,RANDOM 19.4 ug/mL
[2022-05-19 08:25] LABS: NEUTROPHILS % (AUTO) 91.6 % (40.0-70.0)
[2022-05-19] MEDS: SEVELAMER CARBONATE 800 MG TABLET PO SCH ×3 (10:16→18:19)
[2022-05-19] MEDS: DIVALPROEX SODIUM 250 MG TABLET(DEPAKOTE) PO SCH ×2 (10:17→21:05)
[2022-05-19] MEDS: FAMOTIDINE 20 MG TABLET PO SCH (10:18)
[2022-05-19] MEDS: NEPHROVITE, (FOLIC ACID/VITAMIN B COMP W-C 1 TAB) PO SCH (10:19)
[2022-05-19] MEDS: AMIODARONE HCL 200 MG TABLET PO SCH (10:19)
[2022-05-19] MEDS: ALPRAZolam 0.25 MG TABLET PO PRN (10:20)
[2022-05-19] MEDS: NYSTATIN 15 GM TOPICAL POWDER TP SCH ×2 (10:21→21:09)
[2022-05-19] MEDS: BALSAM PERU/CASTOR OIL 56.7 GM OINT...G. TP SCH (10:22)
--- NOTE | 2022-05-19 14:28 | NUR ---
Spent AM shift with patient monitoring her agitated status. Patient was given Xanax to calm her down and that was effective. Patient turned several times and given Nepro in small sips hourly. Spoke with Internal medicine, Nephrology and social media specialist to consult with medical needs. Also, spoke to the veterinary attendant about patient not eating for 5 days. Would like MDs to consider TPN at this time.
--- NOTE | 2022-05-19 14:47 | NUR ---
Nutrition F/U Admitting Diagnosis: Respiratory failure, PNA Reviewed Pertinent Medical/Surgical Hx Medical Record; SECTIONIZER Medical History Comment: per EMR: 61-year-old female who was brought in d/t hypotension. The patient was receiving dialysis when she became hypotensive. The patient was unable to complete her dialysis appointment. EMS reported the patient's blood pressure was 80 systolic in the field. PMHx: schizophrenia 05/14: S/p HD 2L removed 05/16: S/p paracentesis 6L removed 05/19: ID progress note indicated pt has acute severe sepsis w/ profound leukocytosis w/ bacterial peritonitis; recurrent ascites, s/p paracentesis indicating peritonitis; ESRD; persistent worsening leukocytosis. Subjective Information: RD rounded to ICU earlier this afternoon. Pt was seen resting in bed, confused, and unable to engage in thorough nutrition interview. RD witnessed lunch tray sitting atop bedside table, untouched. Opened Nepro seen at bedside table, less than 25% consumed. Bedscale wt read: 201# -- unsure of reliability. RD spoke w/ pt's primary RN later in pt's room, and he reported that pt was agitated earlier today and was provided w/ Xanax, and he was concerned w/ pt being offered pureed diet at breakfast d/t pt's grogginess afterwards. He stated he visits the pt every hour to offer Nepro ONS. RD endorsed to RN that pt has not been eating well the past 5 days and would benefit from alternative nutrition support at this time. Per EMR review, pt is on 2 L/min via NC; PO intakes negligible; active bowel sounds; LBM x2 05/19; Abimael BID documented as given 05/18 and 05/19. Pt is not yet meeting optimal nutritional needs. Current Diet Order/Nutrition Support: Renal, Puree diet, Nepro TID x4 days & Abimael BID x2 days + Nepro ONS TID x 1 day Pertinent Medications: levophed, pepcid, nephrovite, ferrous sulfate, renvela Pertinent Labs: BUN 30 H, CRE 2.7 H, BG 106 H, WBC 29.8 H, Anion Dior 10 WNL, GRETEL 325 H Height (Feet) 5 feet Height (Inches) 5.00 inches Weight (Pounds) 174 pounds (05/16) Patient Weight 78.925 kg Body Mass Index 28.95 kg/m2 NEW DOCUMENTED WT: 177#/80.5 kg (05/19) -- note 3# wt gain in 3 days NEW DOCUMENTED BMI: 29.5 kg/m2 (05/19) %IBW 139 [place]/Adjusted Body Weight 125#/57 kg/ ABW 63 kg Recent Weight Change No - Per RN screen Weight Status Overweight Skin Integrity Comment: Sammy score: 13 -- Shredding Specialist note 05/14 indicated 1. Perineal area: IAD with erythema, present on admission. 2. Intergluteal Fold: Intertrigo with MASD. 3. Left Lateral Hip: Dried skin tear from adhesive. No odor, no drainage. 4. Left Posterior Heel: Blanchable redness, present on admission. 5. Right Posterior Heel: Blanchable redness, present on admission; 3+ pitting edema to BLE and non-pitting edema to BUE. Current % PO: 15% average x5 meal records since 05/16 Estimated Energy Expenditure (kcals/day) 2335-5394 kcal (30-35 kcal/kg Adj BW d/t ESRD on HD, sepsis) Estimated Protein Required (g/day) 76-95g (1.2-1.5 g/kg Adj BW d/t ESRD on HD, sepsis) Estimated Fluid Required (l/day) Refer to MD (ESRD) Problem/Etiology/Signs/Symptoms * Altered nutrition-related lab values r/t renal dysfunction AEB high BUN/CRE. *Ongoing * Suboptimal nutritional intakes R/T cognitive limitations and suspected lack of appetite AEB confusion/disorientation/ poor concentration and poor PO intake records. *New * Increased nutritional needs R/T metabolic demands AEB estimated nutritional needs for sepsis. *New Expected Outcomes/Goals PO intake provides >85% estimated nutrient needs, nutrition-related labs trending WNL, continued skin integrity, BM q1-3 days Dietitian Recommendations * Continue Renal, Pureed diet, Nepro TID (ONS yields 1275 kcal/day, 57 gm protein/day) * Continue Abimael BID (supplement yields 180 kcal/day, 5 gm protein/day) * Encourage good PO intakes * Continue Nephrovite * Consider TPN for supplemental nutrition -- negligible PO x5 days Follow Up High Risk: F/U in 2-3 days
--- NOTE | 2022-05-19 15:02 | NUR ---
Dietitian Recommendations * Continue Renal, Pureed diet, Nepro TID (ONS yields 1275 kcal/day, 57 gm protein/day) * Continue Abimael BID (supplement yields 180 kcal/day, 5 gm protein/day) * Encourage good PO intakes * Continue Nephrovite * Consider TPN for supplemental nutrition -- negligible PO x5 days LP, MS, RD Please refer to Nutrition F/U for details.
--- NOTE | 2022-05-19 19:35 | NUR ---
PM SHIFT ASSESSMENT PATIENT IS AWAKE, ABLE TO ANSWER SIMPLE QUESTIONS. ST ON MONITOR. SKIN WARM AND DRY. RR EVEN AND UNLABORED. SAFETY PRECAUTIONS IN PLACE, CALL LIGHT WITHIN REACH. WILL CONTINUE TO MONITOR.
[2022-05-19] MEDS: ARIPiprazole 2 MG TAB PO SCH (21:05)
[2022-05-19] MEDS: MIRTAZAPINE 15 MG TABLET PO SCH (21:05)
[2022-05-20] VITALS (12 sets, daily range): BP systolic 93–115
[2022-05-20] MEDS: FERROUS SULFATE 325 MG TABLET.DR PO SCH ×3 (06:13→21:47)
[2022-05-20] MEDS: MEROPENEM 500 MG in NS 50 ML IV SCH ×2 (06:13→18:31)
[2022-05-20] MEDS: MIDODRINE HCL 5 MG TABLET (PROAMATINE) PO SCH ×3 (06:13→21:49)
[2022-05-20] MEDS: NORMAL SALINE 5 ML DISP.SYRIN IVF SCH ×3 (06:13→21:48)
[2022-05-20 06:54] LABS: CALCIUM 8.5 mg/dL (8.4-11.0); CREATININE 3.34 mg/dL (0.55-1.30); VANCOMYCIN,RANDOM 17.8 ug/mL
--- NOTE | 2022-05-20 07:30 | NUR ---
ENDORSEMENT PATIENT CARE ENDORSED TO CHIO FERNANDO.
[2022-05-20 07:44] LABS: HEMATOCRIT 26.9 % (36-48); HEMOGLOBIN 8.2 g/dL (12.0-16.0); MEAN CORPUSCULAR HEMOGLOBIN 23 pg (27-31); MEAN CORPUSCULAR HGB CONC 31 % (32-36); MEAN CORPUSCULAR VOLUME 74 fL (79.0-98.0); PLATELET COUNT (AUTO) 142 K/uL (130-430); RED BLOOD CELL COUNT(AUTO) 3.63 MIL/uL (4.2-6.2); RED CELL DISTRIBUTION WIDTH 22.8 % (9.0-15.0)
[2022-05-20 08:21] LABS: WHITE BLOOD COUNT (AUTO) 30.1 K/uL (4.8-10.8)
[2022-05-20] MEDS: SEVELAMER CARBONATE 800 MG TABLET PO SCH ×3 (10:53→18:00)
[2022-05-20] MEDS: AMIODARONE HCL 200 MG TABLET PO SCH (10:54)
[2022-05-20] MEDS: NEPHROVITE, (FOLIC ACID/VITAMIN B COMP W-C 1 TAB) PO SCH (10:55)
[2022-05-20] MEDS: DIVALPROEX SODIUM 250 MG TABLET(DEPAKOTE) PO SCH ×2 (10:55→21:47)
[2022-05-20] MEDS: FAMOTIDINE 20 MG TABLET PO SCH (10:55)
[2022-05-20] MEDS: NYSTATIN 15 GM TOPICAL POWDER TP SCH ×2 (10:57→21:55)
[2022-05-20] MEDS: BALSAM PERU/CASTOR OIL 56.7 GM OINT...G. TP SCH (10:58)
[2022-05-20 11:11] LABS: BAND % (MANUAL) 14 % (0-6); BASOPHILS % (MANUAL) 0 % (0-2); EOSINOPHILS % (MANUAL) 0 % (0-7); LYMPHOCYTES % (MANUAL) 4 % (20-46); MONOCYTES % (MANUAL) 6 % (0-11)
[2022-05-20] MEDS: ARIPiprazole 2 MG TAB PO SCH (21:00)
[2022-05-20] MEDS: MIRTAZAPINE 15 MG TABLET PO SCH (21:47)
[2022-05-21] VITALS (24 sets, daily range): BP systolic 96–129
[2022-05-21] MEDS: NOREPINEPHRINE BITARTRATE 32 MG in NS 218 ML IV PRN (04:48)
[2022-05-21] MEDS: NORMAL SALINE 5 ML DISP.SYRIN IVF SCH ×3 (05:38→21:04)
[2022-05-21] MEDS: FERROUS SULFATE 325 MG TABLET.DR PO SCH ×3 (05:38→20:45)
[2022-05-21] MEDS: MIDODRINE HCL 5 MG TABLET (PROAMATINE) PO SCH ×3 (05:39→20:45)
[2022-05-21 06:26] LABS: CALCIUM 8.5 mg/dL (8.4-11.0); CREATININE 3.76 mg/dL (0.55-1.30)
--- NOTE | 2022-05-21 06:39 | NUR ---
ALL CARES DONE, VSS MAINTAINING ON LEVOPHED 0.25 MCG, HAD BMX1 AND VOID X1, DRESSING ON SACRAL DONE CALMOSEPTINE APPLIED AND FOAM DRESSING DONE. NPO MAINTAINED CONT TO MONITOR.
[2022-05-21 07:25] LABS: BASOPHILS % (AUTO) 0.1 % (0.0-2.0); EOSINOPHILS % (AUTO) 0.1 % (0.0-4.0); HEMATOCRIT 27.3 % (36-48); HEMOGLOBIN 8.3 g/dL (12.0-16.0); LYMPHOCYTES # (AUTO) 1.2 K/uL (1.0-5.5); LYMPHOCYTES % (AUTO) 3.5 % (20.5-51.5); MEAN CORPUSCULAR HEMOGLOBIN 23 pg (27-31); MEAN CORPUSCULAR HGB CONC 30 % (32-36); MEAN CORPUSCULAR VOLUME 74 fL (79.0-98.0); MONOCYTES # (AUTO) 1.9 K/uL (0.0-1.0); MONOCYTES % (AUTO) 5.3 % (1.7-9.3); NEUTROPHILS # (AUTO) 32.3 K/uL (1.8-7.7); PLATELET COUNT (AUTO) 163 K/uL (130-430); RED BLOOD CELL COUNT(AUTO) 3.68 MIL/uL (4.2-6.2); RED CELL DISTRIBUTION WIDTH 22.8 % (9.0-15.0)
[2022-05-21 07:45] LABS: WHITE BLOOD COUNT (AUTO) 35.5 K/uL (4.8-10.8)
--- NOTE | 2022-05-21 07:59 | NUR ---
0709 Pt report received from ABDULLAHI Morales. Pt alert, confused, responsive to person only. O2 at 4 LPM/NC, respirations even and non-labored. Andrew Cath to right chest wall and ANNEMARIE midline secure with Levophed drip infusing at 0.12 mcg/kg/min to ANNEMARIE midline. NOC Nurse states pt attempted to get out of bed multiple times. Restraints are not in place at this time. Will discuss with treating physician. Pt appears in no acute pain or discomfort at this time, VSS.
[2022-05-21] MEDS: SEVELAMER CARBONATE 800 MG TABLET PO SCH ×3 (08:29→18:00)
[2022-05-21] MEDS: MEROPENEM 500 MG in NS 50 ML IV SCH ×2 (08:30→20:43)
[2022-05-21] MEDS: NEPHROVITE, (FOLIC ACID/VITAMIN B COMP W-C 1 TAB) PO SCH (09:00)
[2022-05-21] MEDS: FAMOTIDINE 20 MG TABLET PO SCH (09:00)
[2022-05-21] MEDS: AMIODARONE HCL 200 MG TABLET PO SCH (09:00)
[2022-05-21] MEDS: DIVALPROEX SODIUM 250 MG TABLET(DEPAKOTE) PO SCH ×2 (09:00→20:44)
--- NOTE | 2022-05-21 09:22 | NUR ---
CALLED AND LEFT A MESSAGE FOR A EVAL AT 0922 to [phone]. TO FIND OUT IF ORDERS WERE PUT IN
[2022-05-21] MEDS: NYSTATIN 15 GM TOPICAL POWDER TP SCH ×2 (09:23→20:45)
[2022-05-21] MEDS: BALSAM PERU/CASTOR OIL 56.7 GM OINT...G. TP SCH (09:24)
--- NOTE | 2022-05-21 09:43 | NUR ---
Nutrition F/U Admitting Diagnosis: Respiratory failure, PNA Reviewed Pertinent Medical/Surgical Hx Medical Record; TECHNICAL COMMUNICATOR Medical History Comment: per EMR: 61-year-old female who was brought in d/t hypotension. The patient was receiving dialysis when she became hypotensive. The patient was unable to complete her dialysis appointment. EMS reported the patient's blood pressure was 80 systolic in the field. PMHx: schizophrenia 05/14: S/p HD 2L removed 05/16: S/p paracentesis 6L removed 05/19: ID progress note indicated pt has acute severe sepsis w/ profound leukocytosis w/ bacterial peritonitis; recurrent ascites, s/p paracentesis indicating peritonitis; ESRD; persistent worsening leukocytosis. Subjective Information: RD rounded to ICU meeting earlier this morning. Pt was seen resting in bed. RD s/w primary RN regarding pt condition. RN said pt coughs whenever she eats so she is now NPO pending swallow evaluation. RN attests to pt having small sacral wound about 1 inch. Pt is on Levophed at 0.25 mcg, and last BG reading was 210. Per EMR review, pt is on room air; PO intakes negligible previously; abd soft/tender with active bowel sounds; LBM x1 05/21; Abimael BID documented as given 05/20. Pt is not yet meeting optimal nutritional needs. Current Diet Order/Nutrition Support: NPO pending swallow x 1 day Pertinent Medications: levophed, pepcid, nephrovite, ferrous sulfate Pertinent Labs: BUN 45 H, CRE 3.76 H, BG 93 WNL, WBC 35.5* H, Anion Gap17 H, ALP 325 H Height (Feet) 5 feet Height (Inches) 5.00 inches Weight (Pounds) 174 pounds (05/16) Patient Weight 78.925 kg Body Mass Index 28.95 kg/m2 NEW DOCUMENTED WT: 177#/80.5 kg (05/19) -- note 3# wt gain in 3 days NEW DOCUMENTED BMI: 29.5 kg/m2 (05/19) %IBW 139 [place]/Adjusted Body Weight 125#/57 kg/ ABW 63 kg Recent Weight Change No - Per RN screen Weight Status Overweight Skin Integrity Comment: Sammy score: 14 -- Head Banquet Waitress note 05/14 indicated 1. Perineal area: IAD with erythema, present on admission. 2. Intergluteal Fold: Intertrigo with MASD. 3. Left Lateral Hip: Dried skin tear from adhesive. No odor, no drainage. 4. Left Posterior Heel: Blanchable redness, present on admission. 5. Right Posterior Heel: Blanchable redness, present on admission; 2+ pitting edema to BLE and 1+ non-pitting edema to BUE. Current % PO: Negligible <25% since 05/16 Estimated Energy Expenditure (kcals/day) 9290-7392 kcal (30-35 kcal/kg Adj BW d/t ESRD on HD, sepsis) Estimated Protein Required (g/day) 76-95g (1.2-1.5 g/kg Adj BW d/t ESRD on HD, sepsis) Estimated Fluid Required (l/day) Refer to MD (ESRD) Problem/Etiology/Signs/Symptoms * Altered nutrition-related lab values r/t renal dysfunction AEB high BUN/CRE. *Ongoing * Suboptimal nutritional intakes R/T cognitive limitations and suspected lack of appetite AEB confusion/disorientation/ poor concentration and poor PO intake records. *Ongoing * Increased nutritional needs R/T metabolic demands AEB estimated nutritional needs for sepsis. *Ongoing Expected Outcomes/Goals PO intake provides >85% estimated nutrient needs, nutrition-related labs trending WNL, continued skin integrity, BM q1-3 days Dietitian Recommendations * If/when pt passes swallow evaluation continue Renal, Pureed diet, Nepro TID (ONS yields 1275 kcal/day, 57 gm protein/day) * Continue Abimael BID (supplement yields 180 kcal/day, 5 gm protein/day) * Continue Nephrovite * Consider TPN for supplemental nutrition -- negligible PO x7 days Follow Up High Risk: F/U in 2-3 days GS, MPH, RD
--- NOTE | 2022-05-21 09:47 | NUR ---
Dietitian Recommendations * If/when pt passes swallow evaluation continue Renal, Pureed diet, Nepro TID (ONS yields 1275 kcal/day, 57 gm protein/day) * Continue Abimael BID (supplement yields 180 kcal/day, 5 gm protein/day) * Continue Nephrovite * Consider TPN for supplemental nutrition -- negligible PO x7 days GS, MPH, RD Please refer to Nutrition F/U for further details. Thanks!
[2022-05-21] MEDS: VANCOMYCIN HCL 500 MG in NS 100 ML IV SCH (12:00)
[2022-05-21] MEDS ORDERED: NALOXONE HCL 0.4 MG/ML AMP (NARCAN) IVP PRN (15:45)
[2022-05-21] MEDS: MORPHINE 2 MG/ML INJ. SYRINGE IVP PRN (16:16)
--- NOTE | 2022-05-21 17:04 | NUR ---
ST EVALUATION COMPLETED. ST TX NOT INDICATED AT THIS TIME. PT DEMONSTRATES DECREASED SWALLOW FUNCTION AND SAFETY. RECOMMEND NPO WITH ALTERNATIVE MEANS OF NUTRITION.
--- NOTE | 2022-05-21 19:08 | NUR ---
GAVE REPORT TO ABDULLAHI LOVE. PT IN NO ACUTE DISTRESS AT THIS TIME.
[2022-05-21] MEDS ORDERED: FLUCONAZOLE 200 mg/ NS 100 ML IV SCH (20:00)
--- NOTE | 2022-05-21 20:06 | NUR ---
Nutrition Note: Subjective Information: Patient is s/p failed swallow evaluation 05/21. RD rounded to ICU and s/w patient RN concerning alternative means of nutrition. RD and GENERAL FARMWORKER discussed possible placement of feeding tube on 05/22. RD offered to provide RN with EN recs prior to placement, RN agreeable. Enteral nutrition will preserve gut integrity and reduce the risk of refeeding syndrome d/t pts poor PO intake. Estimated Energy Expenditure (kcals/day) 5034-9292 kcal (30-35 kcal/kg Adj BW d/t ESRD on HD, sepsis) Estimated Protein Required (g/day) 76-95g (1.2-1.5 g/kg Adj BW d/t ESRD on HD, sepsis) Estimated Fluid Required (l/day) Refer to MD (ESRD) Dietitian Recommendations * Remain NPO, per speech therapist * If/when medically appropriate, consider placing NG/OG tube * Recommend Nepro at 45 mL/hr (goal rate) + Free Water Flushes per MD Provides daily: 1944 kcals, 87g PRO, 785mL FW Meets: 103% lower estimated kcals, 92% upper estimated PRO -- Start TF at 20mL and increase 10 mL Q 10-12H till goal is achieved * Monitor electrolytes + thiamine Please refer to nutrition f/u for further details, thanks! Nelly Pedroza MPH, RDN
[2022-05-21] MEDS: ARIPiprazole 2 MG TAB PO SCH (20:44)
[2022-05-21] MEDS: MIRTAZAPINE 15 MG TABLET PO SCH (20:44)
[2022-05-21] MEDS: FLUCONAZOLE 200 mg/ NS 100 ML IV SCH (20:48)
[2022-05-21] MEDS: PANTOPRAZOLE SODIUM 40 MG/VIAL (PROTONIX) IVP SCH (20:53)
[2022-05-22] VITALS (24 sets, daily range): BP systolic 96–135
[2022-05-22] MEDS: MIDODRINE HCL 5 MG TABLET (PROAMATINE) PO SCH ×3 (06:00→22:00)
[2022-05-22] MEDS: FERROUS SULFATE 325 MG TABLET.DR PO SCH ×3 (06:00→22:59)
[2022-05-22] MEDS: NORMAL SALINE 5 ML DISP.SYRIN IVF SCH ×3 (06:32→22:43)
--- NOTE | 2022-05-22 06:37 | NUR ---
ALL CARES DONE HAD BM2X CLEANED AND KEPT DRY, DRESSING ON SACRAL DONE, CHGBATH DONE, NYSTATIN POWDER APPLIED TO PERINIUM AREA, LEVOPHED TITRATED 2 O.2 MCG/KG/MIN, AFEBRILE, NPO MAINTAINED STRICTLY. NO PAIN MEDS GIVEN NO COMPLAINS EXCEPT ASKING FOR FOOD. SWALLOW EVAL FAILED FOR TUBE FEEDING TODAY.
--- NOTE | 2022-05-22 07:09 | NUR ---
Pt report received from ABDULLAHI Morales. Pt alert, confused, responsive to person only. Patient is on room air, respirations even and non-labored. Andrew Cath to right chest wall and ANNEMARIE midline secure with Levophed drip infusing at 0.2 mcg/kg/min to ANNEMARIE midline. NOC Nurse states pt attempted to get out of bed multiple times. Restraints are not in place at this time. Will discuss with treating physician. Pt appears in no acute pain or discomfort at this time, VSS.
[2022-05-22 07:13] LABS: ALBUMIN 1.9 g/dL (3.4-4.8); CALCIUM 8.5 mg/dL (8.4-11.0); CREATININE 4.44 mg/dL (0.55-1.30); PHOSPHORUS 4.6 mg/dL (2.7-4.5); TOTAL BILIRUBIN 0.8 mg/dL (0.0-1.0)
[2022-05-22] MEDS: SEVELAMER CARBONATE 800 MG TABLET PO SCH ×3 (08:00→18:00)
[2022-05-22] MEDS: MEROPENEM 500 MG in NS 50 ML IV SCH ×2 (08:30→19:29)
[2022-05-22 08:46] LABS: BASOPHILS # (AUTO) 0.2 K/uL (0.0-0.2); BASOPHILS % (AUTO) 0.4 % (0.0-2.0); EOSINOPHILS # (AUTO) 0.1 K/uL (0.0-0.4); EOSINOPHILS % (AUTO) 0.2 % (0.0-4.0); HEMATOCRIT 25.6 % (36-48); HEMOGLOBIN 7.9 g/dL (12.0-16.0); LYMPHOCYTES # (AUTO) 0.8 K/uL (1.0-5.5); LYMPHOCYTES % (AUTO) 2.2 % (20.5-51.5); MEAN CORPUSCULAR HEMOGLOBIN 23 pg (27-31); MEAN CORPUSCULAR HGB CONC 31 % (32-36); MEAN CORPUSCULAR VOLUME 73 fL (79.0-98.0); MONOCYTES # (AUTO) 1.6 K/uL (0.0-1.0); MONOCYTES % (AUTO) 4.5 % (1.7-9.3); NEUTROPHILS % (AUTO) 92.7 % (40.0-70.0); PLATELET COUNT (AUTO) 155 K/uL (130-430); RED BLOOD CELL COUNT(AUTO) 3.49 MIL/uL (4.2-6.2); RED CELL DISTRIBUTION WIDTH 22.2 % (9.0-15.0)
[2022-05-22 08:53] LABS: WHITE BLOOD COUNT (AUTO) 36.7 K/uL (4.8-10.8)
[2022-05-22] MEDS: FAMOTIDINE 20 MG TABLET PO SCH (09:00)
[2022-05-22] MEDS: AMIODARONE HCL 200 MG TABLET PO SCH (09:00)
[2022-05-22] MEDS: NYSTATIN 15 GM TOPICAL POWDER TP SCH ×2 (09:00→21:00)
[2022-05-22] MEDS: NEPHROVITE, (FOLIC ACID/VITAMIN B COMP W-C 1 TAB) PO SCH (09:00)
[2022-05-22] MEDS: DIVALPROEX SODIUM 250 MG TABLET(DEPAKOTE) PO SCH ×2 (09:00→22:58)
--- NOTE | 2022-05-22 09:01 | NUR ---
Pt failed swallow eval. Discussed with pt the order for NGT placement. Explained procedure and medical need. Pt stated she did not believe that she failed swallow evaluation and that she did not want NGT placed. RN reinforced the need for safe access for nutrition and medications. Pt adamantly refused to provide consent for procedure. RN spoke with Dr. Caputo during rounds and informed him of pt refusal to consent. Dr. Caputo stated he would call back with alternative plan of action.
[2022-05-22] MEDS: PANTOPRAZOLE SODIUM 40 MG/VIAL (PROTONIX) IVP SCH ×2 (09:21→22:57)
[2022-05-22] MEDS: NOREPINEPHRINE BITARTRATE 32 MG in NS 218 ML IV PRN (09:26)
[2022-05-22] MEDS: BALSAM PERU/CASTOR OIL 56.7 GM OINT...G. TP SCH (09:40)
--- NOTE | 2022-05-22 10:50 | NUR ---
Spoke with Dr. Caputo on the phone regarding nutritional plan for the pt. Informed him that she is confused, no family and refusing the NG tube. He said he would come by to see her as she was a new patient to him, and then figure it out. Bedside RN made aware.
[2022-05-22] MEDS ORDERED: ALBUMIN HUMAN 25% 200 ML IV ONE (11:00)
[2022-05-22] MEDS ORDERED: HEPARIN SODIUM,PORCINE 5,000 UNITS/ML VIAL MC ONE ×2 (11:00)
--- NOTE | 2022-05-22 11:05 | NUR ---
HIGH ALERT NOTE: Called Dr. PORTILLO back at number identified within the medical roster to verify physician authenticity. Addendum: 05/22/22 at 1849 by Radha Melton RN RECEIVED ORDERED HEPARIN [id number] UNITS IV TO BE GIVEN BY HD NURSE.
--- NOTE | 2022-05-22 13:34 | NUR ---
CALLED DR. WELLS DIRECTLY FOR NEW PALLIATIVE CARE CONSULTATION ORDERED BY DR. MORRIS REGARDING OVARIAN CANCER. DR. WELLS REQUESTED TO CALL BACK AND LEAVE INFORMATION ON VOICEMAIL AND WILL VISIT TOMORROW TO SEE THE PATIENT
--- NOTE | 2022-05-22 17:40 | NUR ---
Pt agreeable to NG tube placement. NG inserted to right nare without difficulty. Placement verified by Bedside RN and myself. NG clamped.
[2022-05-22] MEDS: FLUCONAZOLE 200 mg/ NS 100 ML IV SCH (20:30)
[2022-05-22] MEDS: ARIPiprazole 2 MG TAB PO SCH (21:00)
[2022-05-22] MEDS: MIRTAZAPINE 15 MG TABLET PO SCH (22:58)
[2022-05-23] VITALS (24 sets, daily range): BP systolic 96–126
[2022-05-23 06:05] LABS: BASOPHILS # (AUTO) 0.3 K/uL (0.0-0.2); EOSINOPHILS # (AUTO) 0.3 K/uL (0.0-0.4); EOSINOPHILS % (AUTO) 0.9 % (0.0-4.0); HEMATOCRIT 23.7 % (36-48); HEMOGLOBIN 7.5 g/dL (12.0-16.0); LYMPHOCYTES # (AUTO) 1.3 K/uL (1.0-5.5); LYMPHOCYTES % (AUTO) 3.6 % (20.5-51.5); MEAN CORPUSCULAR HEMOGLOBIN 23 pg (27-31); MEAN CORPUSCULAR HGB CONC 32 % (32-36); MEAN CORPUSCULAR VOLUME 74 fL (79.0-98.0); MONOCYTES # (AUTO) 1.8 K/uL (0.0-1.0); MONOCYTES % (AUTO) 5.1 % (1.7-9.3); NEUTROPHILS # (AUTO) 30.9 K/uL (1.8-7.7); NEUTROPHILS % (AUTO) 89.4 % (40.0-70.0); PLATELET COUNT (AUTO) 182 K/uL (130-430); RED BLOOD CELL COUNT(AUTO) 3.22 MIL/uL (4.2-6.2); RED CELL DISTRIBUTION WIDTH 23.1 % (9.0-15.0)
[2022-05-23 06:30] LABS: ALBUMIN 2.8 g/dL (3.4-4.8); CALCIUM 8.4 mg/dL (8.4-11.0); CREATININE 3.4 mg/dL (0.55-1.30)
[2022-05-23] MEDS: NORMAL SALINE 5 ML DISP.SYRIN IVF SCH ×3 (06:34→22:00)
[2022-05-23] MEDS: MIDODRINE HCL 5 MG TABLET (PROAMATINE) PO SCH ×3 (06:34→21:37)
[2022-05-23] MEDS: FERROUS SULFATE 325 MG TABLET.DR PO SCH ×3 (06:34→21:37)
[2022-05-23 07:03] LABS: WHITE BLOOD COUNT (AUTO) 34.5 K/uL (4.8-10.8)
--- NOTE | 2022-05-23 07:59 | NUR ---
Opening Note: Patient was admitted to [facility] on 05/12 for dx- RF/PNA. CC- hypotension, during HD dropped to 80's brought to [facility]. PMHX: ESRD, HD dependent T-TH-S donnie, GERD, Hypotension, HTN, hypertensive kidney disease, anemia of chronic disease, AV fistula. ANNEMARIE midline- intact, patent, dressing CDI. RIJ mumtaz- intact, dressing CDI, last HD yesterday 2L out. IVF: levophed at 0.39mcg Patient is alert and oriented x2 confused able to answer yes and no simple questions. NSR on monitor. Room air- saturating 97%. BM- smear noted. Right NGT- intact, patent- NPO pending TF recommendations. Anuric no output noted. Skin- issues of sacrum, heels, left skin tear- dressings in place, pictures to be taken today. Restraints in place- removed 10min per hour, skin intact. Smear noted per noc RN.
[2022-05-23] MEDS: FAMOTIDINE 20 MG TABLET PO SCH (08:31)
[2022-05-23] MEDS: NEPHROVITE, (FOLIC ACID/VITAMIN B COMP W-C 1 TAB) PO SCH (08:31)
[2022-05-23] MEDS: DIVALPROEX SODIUM 250 MG TABLET(DEPAKOTE) PO SCH ×2 (08:31→21:00)
[2022-05-23] MEDS: SEVELAMER CARBONATE 800 MG TABLET PO SCH ×3 (08:31→17:42)
[2022-05-23] MEDS: PANTOPRAZOLE SODIUM 40 MG/VIAL (PROTONIX) IVP SCH ×2 (08:32→21:00)
[2022-05-23] MEDS: AMIODARONE HCL 200 MG TABLET PO SCH (08:32)
[2022-05-23] MEDS: NYSTATIN 15 GM TOPICAL POWDER TP SCH ×2 (08:33→21:00)
[2022-05-23] MEDS: BALSAM PERU/CASTOR OIL 56.7 GM OINT...G. TP SCH (08:33)
--- NOTE | 2022-05-23 09:31 | NUR ---
Nutrition Note: Patient will have full follow-up on 05/24. Subjective Information: Patient is s/p failed swallow evaluation 05/21. RD rounded to ICU and found that pt has NGT but no feeding yet. RD said she would provide enteral nutrition reccs, used previous RDs note. Enteral nutrition will preserve gut integrity and reduce the risk of refeeding syndrome d/t pts poor PO intake. Estimated Energy Expenditure (kcals/day) 7369-7125 kcal (30-35 kcal/kg Adj BW d/t ESRD on HD, sepsis) Estimated Protein Required (g/day) 76-95g (1.2-1.5 g/kg Adj BW d/t ESRD on HD, sepsis) Estimated Fluid Required (l/day) Refer to MD (ESRD) Dietitian Recommendations * Remain NPO, per speech therapist * Recommend Nepro at 45 mL/hr (goal rate) + Free Water Flushes per MD via NGT Provides daily: 1944 kcals, 87g PRO, 785mL FW Meets: 103% lower estimated kcals, 92% upper estimated PRO -- Start TF at 20mL and increase 10 mL Q 10-12H till goal is achieved * Monitor electrolytes + thiamine Thanks! Cat Encinas, MPH, RD
[2022-05-23] MEDS: VANCOMYCIN HCL 500 MG in NS 100 ML IV SCH (11:04)
--- NOTE | 2022-05-23 12:01 | NUR ---
Palliative- Spoke with pallative care MD Mayes, he is worried about mental status and her not being able to make decisions for herself. He is requesting SS to call. They were informed and his number was provided for call back.
--- NOTE | 2022-05-23 14:01 | NUR ---
I spoke w/ Dr Martinez [phone] Palliative evaluation. He stated he cannot accept the patient for care because she is not alert/oriented and cannot make complex decisions and she has no decision maker to make decisions for her.
[2022-05-23] MEDS: MIRTAZAPINE 15 MG TABLET PO SCH (21:00)
[2022-05-23] MEDS: ARIPiprazole 2 MG TAB PO SCH (21:00)
[2022-05-24] VITALS (24 sets, daily range): BP systolic 89–144
[2022-05-24] MEDS: FLUCONAZOLE 200 mg/ NS 100 ML IV SCH ×2 (00:07→21:18)
[2022-05-24] MEDS: NOREPINEPHRINE BITARTRATE 32 MG in NS 218 ML IV PRN ×2 (03:14→22:52)
--- NOTE | 2022-05-24 05:25 | NUR ---
End of Shift Note: Received pt report from Raciel FERNANDO at 2009. GCS 14, confused and forgetful, following a few simple commands. Pt did not have NGT in pt upon pt handoff, and per report, pt had pulled it out despite the bilateral wrist restraints. Pt still refusing to have NGT placed in, therefore, all her PO meds for noc shift could not be administered. Levophed still infusing at 0.36mcg/kg/min, and pt's sbp and map had been meeting the goal, per order. Will continue to monitor and attempt to titrate down as pt's hemodynamic allows.
[2022-05-24] MEDS: MIDODRINE HCL 5 MG TABLET (PROAMATINE) PO SCH ×2 (06:00→13:29)
[2022-05-24] MEDS: FERROUS SULFATE 325 MG TABLET.DR PO SCH ×3 (06:00→21:20)
[2022-05-24] MEDS: NORMAL SALINE 5 ML DISP.SYRIN IVF SCH ×3 (06:00→21:20)
[2022-05-24 06:19] LABS: BASOPHILS % (AUTO) 0.1 % (0.0-2.0); EOSINOPHILS # (AUTO) 0.1 K/uL (0.0-0.4); EOSINOPHILS % (AUTO) 0.2 % (0.0-4.0); HEMATOCRIT 24.4 % (36-48); HEMOGLOBIN 7.4 g/dL (12.0-16.0); LYMPHOCYTES % (AUTO) 2.8 % (20.5-51.5); MEAN CORPUSCULAR HEMOGLOBIN 23 pg (27-31); MEAN CORPUSCULAR HGB CONC 30 % (32-36); MEAN CORPUSCULAR VOLUME 75 fL (79.0-98.0); MONOCYTES # (AUTO) 2.1 K/uL (0.0-1.0); MONOCYTES % (AUTO) 5.9 % (1.7-9.3); NEUTROPHILS # (AUTO) 32.9 K/uL (1.8-7.7); PLATELET COUNT (AUTO) 174 K/uL (130-430); RED BLOOD CELL COUNT(AUTO) 3.25 MIL/uL (4.2-6.2); RED CELL DISTRIBUTION WIDTH 23.7 % (9.0-15.0)
[2022-05-24 07:12] LABS: ALBUMIN 2.5 g/dL (3.4-4.8); CALCIUM 8.5 mg/dL (8.4-11.0); CREATININE 4.14 mg/dL (0.55-1.30)
--- NOTE | 2022-05-24 07:50 | NUR ---
Opening Note: Patient was admitted to [facility] on 05/12 for dx- RF/PNA. CC- hypotension, during HD dropped to 80's brought to [facility]. PMHX: ESRD, HD dependent T-TH-S donnie, GERD, Hypotension, HTN, hypertensive kidney disease, anemia of chronic disease, AV fistula. ANNEMARIE midline- intact, patent, dressing CDI. RIJ mumtaz- intact, dressing CDI, HD donnie today. IVF: levophed at 0.3mcg. Patient is alert and oriented x2 confused able to answer yes and no simple questions. NSR on monitor. Room air- saturating 97%. BM- smear noted per noc RN. NGT pulled out per noc RN, RN said patient was refusing. Upon asking this am, will replace today for medication administration. Anuric no output noted. Skin- issues of sacrum, heels, left skin tear- dressings in place, pictures taken yesterday. Restraints in place- removed 10min per hour, skin intact. Addendum: 05/25/22 at 0739 by Jose Alejandro Ron RN RN Correction: AV fistula written in mistake
--- NOTE | 2022-05-24 07:51 | NUR ---
Levophed running at 0.3mcg/kg/min now and pt's sbp in 100s with map >90s. No changes since the last nursing note. Pt is currently resting in bed. Will continue to monitor. 0700: Bedside pt handoff given to the day shift RN for continuity of care.
[2022-05-24 08:15] LABS: WHITE BLOOD COUNT (AUTO) 36.1 K/uL (4.8-10.8)
[2022-05-24] MEDS: PANTOPRAZOLE SODIUM 40 MG/VIAL (PROTONIX) IVP SCH ×2 (08:35→21:18)
[2022-05-24] MEDS: DIVALPROEX SODIUM 250 MG TABLET(DEPAKOTE) PO SCH ×2 (08:36→21:19)
[2022-05-24] MEDS: FAMOTIDINE 20 MG TABLET PO SCH (08:36)
[2022-05-24] MEDS: SEVELAMER CARBONATE 800 MG TABLET PO SCH ×3 (08:37→17:35)
[2022-05-24] MEDS: AMIODARONE HCL 200 MG TABLET PO SCH (08:37)
[2022-05-24] MEDS: NEPHROVITE, (FOLIC ACID/VITAMIN B COMP W-C 1 TAB) PO SCH (08:37)
[2022-05-24] MEDS: NYSTATIN 15 GM TOPICAL POWDER TP SCH ×2 (08:38→21:35)
[2022-05-24] MEDS: BALSAM PERU/CASTOR OIL 56.7 GM OINT...G. TP SCH (08:39)
--- NOTE | 2022-05-24 09:06 | NUR ---
Oncology Rounded- Informed him of issue with MRI questionnaire due to her mental status. He is aware, informed him SS is on the case attempting to find family to consent. NGT replaced this am to right letitia STACK cleared to start TF once in place.
--- NOTE | 2022-05-24 11:24 | NUR ---
Nutrition F/U RD reviewed pts current EMR including diet hx, physician notes, nursing notes, pertinent labs/meds/procedures, care trends and care activity. Short note d/t high workload Subjective Information RD attended ICU rounds and s/w primary RN. She attested that pt pulled out NGT last night, even with restraints. NGT was placed again this morning and RN said feeding out start as soon as NGT was verified to be in correct place. RN said that pt has some skin issues and a skin tear on sacrum. RN said pt had a smear BM overnight. Pt is scheduled for HD today. Per EMR review: pt abd soft, distended w/ hypoactive bowel sounds; no edema documented. Current Diet Order/Nutrition Support Nepro @ 45mL/hr (goal) via NGT x 0 days % PO intake NPO Last BM 2/2 x 1 per RN Estimated Energy Expenditure (kcals/day) 4933-9765 kcal (30-35 kcal/kg Adj BW d/t ESRD on HD, sepsis) Estimated Protein Required (g/day) 76-95g (1.2-1.5 g/kg Adj BW d/t ESRD on HD, sepsis) Estimated Fluid Required (l/day) Refer to MD (ESRD) Problem/Etiology/Signs/Symptoms * Altered nutrition-related lab values r/t renal dysfunction AEB high BUN/CRE. *Ongoing * Suboptimal nutritional intakes R/T cognitive limitations and suspected lack of appetite AEB confusion/disorientation/ poor concentration and poor PO intake records. *Ongoing * Increased nutritional needs R/T metabolic demands AEB estimated nutritional needs for sepsis. *Ongoing Expected Outcomes/Goals PO intake provides >85% estimated nutrient needs, nutrition-related labs trending WNL, continued skin integrity, BM q1-3 days Dietitian Recommendations *Continue Nepro @ 45mL/hr via NGT Provides: 1944 kcal, 87 g PRO, 785 mL water Meets: 103% of lower est kcal, 92% upper est PRO * Free water flush to be determined by MD (ESRD) *Ordered: Abimael BID Follow up *High Risk: see pt in 2-3 days GS, MPH, RD
--- NOTE | 2022-05-24 11:26 | NUR ---
Dietitian Recommendations *Continue Nepro @ 45mL/hr via NGT Provides: 1944 kcal, 87 g PRO, 785 mL water Meets: 103% of lower est kcal, 92% upper est PRO * Free water flush to be determined by (ESRD) *Ordered: Abimael VALLE, MPH, RD Please refer to Nutrition F/U for further details. Thanks!
[2022-05-24] MEDS ORDERED: ALBUMIN HUMAN 25% 100 ML IV ONE ×2 (18:30→19:30)
[2022-05-24] MEDS: MIRTAZAPINE 15 MG TABLET PO SCH (21:19)
[2022-05-24] MEDS: ONDANSETRON HCL 4 MG/2 ML VIAL IVP PRN (21:22)
[2022-05-25] VITALS (25 sets, daily range): BP systolic 91–142
[2022-05-25] MEDS: MIDODRINE HCL 5 MG TABLET (PROAMATINE) PO SCH ×4 (00:27→21:10)
[2022-05-25] MEDS: ARIPiprazole 2 MG TAB PO SCH ×2 (00:27→20:40)
[2022-05-25] MEDS: FERROUS SULFATE 325 MG TABLET.DR PO SCH ×3 (06:49→21:10)
[2022-05-25] MEDS: NORMAL SALINE 5 ML DISP.SYRIN IVF SCH ×3 (06:50→20:42)
[2022-05-25 07:14] LABS: INR 1.4 (0.8-1.2)
--- NOTE | 2022-05-25 07:19 | NUR ---
1930: Assumed pt care from the day shift. GCS 14, AOx2 to person and time, and pt is currently going through HD at the moment. Levophed running at 0.7mcg/kg/min, will continue to monitor. 2030: HD completes. 1.3L out, per the dialysis nurse. 2100: This freelance copywriter was notified by the dialysis nurse that pt coughed two strings of blood clots. Upon assessment, two long strings of blood clots along the palumbo-colored phlegm were observed in the towel. Pt vomited as well, of the green, bilious vomitus ~30ml. Zofran was administered, per order. Pt remains to have a very firm and distended abdomen with distant and hypoactive bowel sounds. Gastric residual <5ml. Pt had vomited twice last night which prompted to stop the tube feed and put on low intermittent suction (for about 1hr). Total 150ml output for the noc shift from the suction. Pt was restless until 2924-0842 last night, however, slept throughout the remaining morning. Will continue to monitor. 0715: Reports given to the day shift for continuity of care.
--- NOTE | 2022-05-25 07:53 | NUR ---
Opening Note: Patient was admitted to [facility] on 05/12 for dx- RF/PNA. CC- hypotension, during HD dropped to 80's brought to [facility]. PMHX: ESRD, HD dependent T-TH-S donnie, GERD, Hypotension, HTN, hypertensive kidney disease, anemia of chronic disease. ANNEMARIE midline- intact, patent, dressing CDI. RIJ mumtaz- intact, dressing CDI, HD yesterday 1.3L out. IVF: levophed at 0.47mcg. Patient is alert and oriented x2 confused able to answer yes and no simple questions. NSR on monitor. Room air- saturating 97%. BM- smear noted per noc RN. NGT to Right nare, per noc RN TF nephro was going at 20cc/hr, she vomitted in HD x2- bilious color and then blood clots. NGT TF was stopped and placed to suction- 150cc out. Anuric no output noted. Skin- issues of sacrum, heels, left skin tear- dressings in place, pictures taken yesterday. Restraints in place- removed 10min per hour, skin intact.
[2022-05-25] MEDS: AMIODARONE HCL 200 MG TABLET PO SCH (08:10)
[2022-05-25] MEDS: NEPHROVITE, (FOLIC ACID/VITAMIN B COMP W-C 1 TAB) PO SCH (08:10)
[2022-05-25] MEDS: SEVELAMER CARBONATE 800 MG TABLET PO SCH ×3 (08:11→17:07)
[2022-05-25] MEDS: PANTOPRAZOLE SODIUM 40 MG/VIAL (PROTONIX) IVP SCH ×2 (08:11→20:39)
[2022-05-25] MEDS: DIVALPROEX SODIUM 250 MG TABLET(DEPAKOTE) PO SCH ×2 (08:11→20:40)
[2022-05-25] MEDS: FAMOTIDINE 20 MG TABLET PO SCH (08:11)
[2022-05-25] MEDS: BALSAM PERU/CASTOR OIL 56.7 GM OINT...G. TP SCH (08:13)
[2022-05-25] MEDS: NYSTATIN 15 GM TOPICAL POWDER TP SCH ×2 (08:13→20:41)
[2022-05-25 08:35] LABS: BASOPHILS # (AUTO) 0.2 K/uL (0.0-0.2); BASOPHILS % (AUTO) 0.7 % (0.0-2.0); EOSINOPHILS % (AUTO) 0.2 % (0.0-4.0); HEMATOCRIT 24.1 % (36-48); HEMOGLOBIN 7.3 g/dL (12.0-16.0); LYMPHOCYTES # (AUTO) 0.7 K/uL (1.0-5.5); LYMPHOCYTES % (AUTO) 2.5 % (20.5-51.5); MEAN CORPUSCULAR HEMOGLOBIN 23 pg (27-31); MEAN CORPUSCULAR HGB CONC 31 % (32-36); MEAN CORPUSCULAR VOLUME 74 fL (79.0-98.0); MONOCYTES # (AUTO) 1.6 K/uL (0.0-1.0); MONOCYTES % (AUTO) 5.6 % (1.7-9.3); NEUTROPHILS # (AUTO) 25.9 K/uL (1.8-7.7); PLATELET COUNT (AUTO) 156 K/uL (130-430); RED BLOOD CELL COUNT(AUTO) 3.25 MIL/uL (4.2-6.2); RED CELL DISTRIBUTION WIDTH 23.4 % (9.0-15.0); WHITE BLOOD COUNT (AUTO) 28.5 K/uL (4.8-10.8)
[2022-05-25 09:38] LABS: CALCIUM 8.7 mg/dL (8.4-11.0); CREATININE 2.97 mg/dL (0.55-1.30); PHOSPHORUS 4.1 mg/dL (2.7-4.5)
[2022-05-25] MEDS: VANCOMYCIN HCL 500 MG in NS 100 ML IV SCH (11:15)
[2022-05-25] MEDS: NOREPINEPHRINE BITARTRATE 32 MG in NS 218 ML IV PRN (12:49)
--- NOTE | 2022-05-25 13:47 | NUR ---
Crab Catcher SUPERVISOR MAJOR APPLIANCE ASSEMBLY received a referral for pt. who has no emergency contacts. SUPERVISOR MAJOR APPLIANCE ASSEMBLY spoke with Rn. Horton who shared the doctor is concerned for pt. as there is no emergency contact and pt. may be a candidate for palliative or hospice. SUPERVISOR MAJOR APPLIANCE ASSEMBLY called [facility] and spoke to an Rn, who stated Helen was admitted on 05/06/22 and before that she had come from [facility]. there are not contacts and pt. did not have any visitors or anyone calling to inquire about her. SUPERVISOR MAJOR APPLIANCE ASSEMBLY tried a phone number found in the previous admittance for "friend, Jazmin Benitez", , but its a non-working number. SUPERVISOR MAJOR APPLIANCE ASSEMBLY tried the same phone number with the following, [phone]), no luck.
[2022-05-25] MEDS: ONDANSETRON HCL 4 MG/2 ML VIAL IVP PRN (14:31)
--- NOTE | 2022-05-25 15:24 | NUR ---
MD rounds: Primary- aware of patient status, requested palliative to get involved once social science instructor could find a contact for patient. medical services assistant- informed. Palliative- Pending possible conservatorship or family contact to proceed with plan of care due to poor prognosis. Pulmo- Aware of patients current status with vomiting noc shift x2, and x1 today. TF to stop and start TPN pending next step with social science instructor.
[2022-05-25] MEDS ORDERED: DEXTROSE 50% JECT 50 ML DISP.SYRIN IVP PRN (15:30)
[2022-05-25] MEDS ORDERED: *TPN PER PHARMACY XX PRN (15:30)
[2022-05-25] MEDS: FLUCONAZOLE 200 mg/ NS 100 ML IV SCH (20:39)
[2022-05-25] MEDS: MIRTAZAPINE 15 MG TABLET PO SCH (20:40)
[2022-05-26] VITALS (35 sets, daily range): BP systolic 89–140
[2022-05-26] MEDS: MORPHINE 2 MG/ML INJ. SYRINGE IVP PRN ×2 (00:10→02:15)
[2022-05-26] MEDS: NORMAL SALINE 5 ML DISP.SYRIN IVF SCH ×3 (06:00→23:02)
[2022-05-26] MEDS: FERROUS SULFATE 325 MG TABLET.DR PO SCH (06:31)
[2022-05-26] MEDS: MIDODRINE HCL 5 MG TABLET (PROAMATINE) PO SCH ×3 (06:31→22:00)
[2022-05-26 07:52] LABS: HEMATOCRIT 23.2 % (36-48); HEMOGLOBIN 7.1 g/dL (12.0-16.0); MEAN CORPUSCULAR HEMOGLOBIN 23 pg (27-31); MEAN CORPUSCULAR HGB CONC 31 % (32-36); MEAN CORPUSCULAR VOLUME 74 fL (79.0-98.0); PLATELET COUNT (AUTO) 157 K/uL (130-430); RED BLOOD CELL COUNT(AUTO) 3.13 MIL/uL (4.2-6.2)
[2022-05-26] MEDS: PANTOPRAZOLE SODIUM 40 MG/VIAL (PROTONIX) IVP SCH ×2 (08:21→21:00)
[2022-05-26] MEDS: SEVELAMER CARBONATE 800 MG TABLET PO SCH (08:21)
[2022-05-26] MEDS: DIVALPROEX SODIUM 250 MG TABLET(DEPAKOTE) PO SCH ×2 (08:21→21:00)
[2022-05-26] MEDS: FAMOTIDINE 20 MG TABLET PO SCH (08:22)
[2022-05-26] MEDS: NEPHROVITE, (FOLIC ACID/VITAMIN B COMP W-C 1 TAB) PO SCH (08:23)
[2022-05-26] MEDS: AMIODARONE HCL 200 MG TABLET PO SCH (08:23)
[2022-05-26] MEDS: NYSTATIN 15 GM TOPICAL POWDER TP SCH ×2 (08:24→21:21)
[2022-05-26] MEDS: BALSAM PERU/CASTOR OIL 56.7 GM OINT...G. TP SCH (08:24)
[2022-05-26 08:31] LABS: WHITE BLOOD COUNT (AUTO) 30.5 K/uL (4.8-10.8)
[2022-05-26 08:35] LABS: ALBUMIN 2.8 g/dL (3.4-4.8); CALCIUM 8.6 mg/dL (8.4-11.0); CREATININE 3.78 mg/dL (0.55-1.30); PHOSPHORUS 4.7 mg/dL (2.7-4.5)
--- NOTE | 2022-05-26 08:35 | NUR ---
SPOKE WITH DARELL REQUESTING ORDERS FROM DR. ELKINS.
--- NOTE | 2022-05-26 09:02 | NUR ---
SPOKE WITH UNRULY REQUESTING ORDERS FROM DR. ELKINS
--- NOTE | 2022-05-26 09:21 | NUR ---
Nutrition F/U RD reviewed pts current EMR including diet hx, physician notes, nursing notes, pertinent labs/meds/procedures, care trends and care activity. Subjective Information RD recd TPN order from pharmacy 05/25/[address] @ [address] RD called pharm to verbally give TPN reccs. RD rounded to pt room in ICU and s/w primary RN. RN said TF was stopped d/t vomiting and non-tolerance. She said pt alternates between sleepy and agitated. She reports LBM as yesterday. RN said TPN should begin tonight. Per EMR review , there is some confusion if pt will be hospice or palliative care, as pt is confused and cannot speak for herself and has no family. SW is closely following case. Pt abd soft, tender, distended w/ hypoactive bowel sounds; BUE 3+ pitting edema, w/ last documented BM 2/2. Current Diet Order/Nutrition Support Nepro @ 45mL/hr (goal) via NGT x 2 days % PO intake NPO Last BM 2/2 x 1 per RN Estimated Energy Expenditure (kcals/day) 8386-6807 kcal (30-35 kcal/kg Adj BW d/t ESRD on HD, sepsis) Estimated Protein Required (g/day) 76-95g (1.2-1.5 g/kg Adj BW d/t ESRD on HD, sepsis) Estimated Fluid Required (l/day) Refer to MD (ESRD) Problem/Etiology/Signs/Symptoms * Altered nutrition-related lab values r/t renal dysfunction AEB high BUN/CRE. *Ongoing * Suboptimal nutritional intakes R/T cognitive limitations and suspected lack of appetite AEB confusion/disorientation/ poor concentration and poor PO intake records. *Ongoing * Increased nutritional needs R/T metabolic demands AEB estimated nutritional needs for sepsis. *Ongoing Expected Outcomes/Goals PO intake provides >85% estimated nutrient needs, nutrition-related labs trending WNL, continued skin integrity, BM q1-3 days Dietitian Recommendations * Consider PPN, if pt cannot receive nutrition via NGT --D20, AA5.4% @ 110 mL/hr (goal) via peripheral line Provides: 1183 kcal, 71 g PRO, 2640 total volume; GIR 2.1 Meets: 63% of est lower kcal and 93% of lower est PRO needs * Please update diet order to reflect current diet Follow up *High Risk: see pt in 2-3 days GS, MPH, RD
--- NOTE | 2022-05-26 09:34 | NUR ---
Dietitian Recommendations * Consider PPN, if pt cannot receive nutrition via NGT --D20, AA5.4% @ 110 mL/hr (goal) via peripheral line Provides: 1183 kcal, 71 g PRO, 2640 total volume; GIR 2.1 Meets: 63% of est lower kcal and 93% of lower est PRO needs * Please update diet order to reflect current diet GS, MPH, RD Please refer to Nutrition F/U for further details. Thanks!
[2022-05-26] MEDS: PIPERACILLIN/TAZO 2.25G/DEX-IS 50 ML IV SCH ×2 (11:41→17:30)
[2022-05-26] MEDS: NOREPINEPHRINE BITARTRATE 32 MG in NS 218 ML IV PRN (12:39)
[2022-05-26] MEDS ORDERED: FLUCONAZOLE 100 mg/ NS 50 ML IV SCH (13:00)
[2022-05-26] MEDS ORDERED: ALBUMIN HUMAN 25% 200 ML IV ONE (13:15)
[2022-05-26 14:27] LABS: ATYPICAL LYMPHOCYTES % 0 % (0-0); BAND % (MANUAL) 3 % (0-6); BASOPHILS % (MANUAL) 0 % (0-2); EOSINOPHILS % (MANUAL) 0 % (0-7); LYMPHOCYTES % (MANUAL) 4 % (20-46); MONOCYTES % (MANUAL) 6 % (0-11)
--- NOTE | 2022-05-26 16:15 | NUR ---
the 2pm meds was not given because patient was vomiting after the 09am meds was given, kept patient NPO. AWARE.
[2022-05-26] MEDS: FLUCONAZOLE 200 mg/ NS 100 ML IV SCH (20:57)
[2022-05-26] MEDS ORDERED: TPN NEPHRAMINE IV SCH ×6 (21:00)
[2022-05-26] MEDS ORDERED: SODIUM ACETATE IV SCH ×6 (21:00)
[2022-05-26] MEDS ORDERED: MVI IV SCH ×6 (21:00)
[2022-05-26] MEDS: ARIPiprazole 2 MG TAB PO SCH (21:00)
[2022-05-26] MEDS ORDERED: [UNRECOGNIZED DRUG - OTHER] IV SCH ×6 (21:00)
[2022-05-26] MEDS: MIRTAZAPINE 15 MG TABLET PO SCH (21:20)
[2022-05-27] VITALS (23 sets, daily range): BP systolic 83–124
[2022-05-27] MEDS: PIPERACILLIN/TAZO 2.25G/DEX-IS 50 ML IV SCH ×5 (00:21→23:15)
[2022-05-27] MEDS ORDERED: NOREPINEPHRINE 4 MG/4 ML VIAL IV ONE (03:33)
[2022-05-27] MEDS: NORMAL SALINE 5 ML DISP.SYRIN IVF SCH ×3 (05:01→21:44)
[2022-05-27] MEDS: MIDODRINE HCL 5 MG TABLET (PROAMATINE) PO SCH ×3 (06:00→21:44)
[2022-05-27 06:47] LABS: INR 1.4 (0.8-1.2); PROTHROMBIN TIME 14.7 SECS (9.5-12.5)
[2022-05-27 06:49] LABS: BASOPHILS % (AUTO) 0.1 % (0.0-2.0); EOSINOPHILS % (AUTO) 0.2 % (0.0-4.0); LYMPHOCYTES # (AUTO) 0.6 K/uL (1.0-5.5); LYMPHOCYTES % (AUTO) 2.5 % (20.5-51.5); MEAN CORPUSCULAR HEMOGLOBIN 23 pg (27-31); MEAN CORPUSCULAR HGB CONC 30 % (32-36); MEAN CORPUSCULAR VOLUME 75 fL (79.0-98.0); MONOCYTES # (AUTO) 1.3 K/uL (0.0-1.0); MONOCYTES % (AUTO) 5.7 % (1.7-9.3); NEUTROPHILS # (AUTO) 21.5 K/uL (1.8-7.7); NEUTROPHILS % (AUTO) 91.5 % (40.0-70.0); PLATELET COUNT (AUTO) 147 K/uL (130-430); RED BLOOD CELL COUNT(AUTO) 2.69 MIL/uL (4.2-6.2); RED CELL DISTRIBUTION WIDTH 23.9 % (9.0-15.0); WHITE BLOOD COUNT (AUTO) 23.5 K/uL (4.8-10.8)
[2022-05-27 07:02] LABS: ALBUMIN 3.3 g/dL (3.4-4.8); CALCIUM 8.3 mg/dL (8.4-11.0); CREATININE 2.83 mg/dL (0.55-1.30); PHOSPHORUS 2.8 mg/dL (2.7-4.5); TOTAL BILIRUBIN 1.3 mg/dL (0.0-1.0); VANCOMYCIN,RANDOM 19.9 ug/mL
--- NOTE | 2022-05-27 08:00 | NUR ---
PATIENT IN BED, CONFUSION AND AGITATION NOTED, VERBAL COMMUNICATION, NGT TO LOW INTERMITTENT SUCTION, MIDLINE, TPN RUNNING, RESTRAINTS BILATERAL SOFT WRIST, BED IN LOWEST LOCKED POSITION, CALL LIGHT WITHIN REACH, ROOM AIR.
[2022-05-27 08:08] LABS: HEMATOCRIT 20.2 % (36-48); HEMOGLOBIN 6.1 g/dL (12.0-16.0)
--- NOTE | 2022-05-27 08:22 | NUR ---
SPOKE WITH MADELINE TO REPORT CRITICAL LABS FOR DR. GARCIA. PAGE WAS SENT TO THE PHYSICIAN FOR A CALL BACK.
[2022-05-27] MEDS ORDERED: POTASSIUM CHLORIDE 20 MEQ in NS 250 ML IV ONE (08:45)
[2022-05-27] MEDS: DIVALPROEX SODIUM 250 MG TABLET(DEPAKOTE) PO SCH ×2 (09:00→20:38)
[2022-05-27] MEDS: FAMOTIDINE 20 MG TABLET PO SCH (09:00)
[2022-05-27] MEDS: NEPHROVITE, (FOLIC ACID/VITAMIN B COMP W-C 1 TAB) PO SCH (09:00)
[2022-05-27] MEDS: AMIODARONE HCL 200 MG TABLET PO SCH (09:00)
--- NOTE | 2022-05-27 09:05 | NUR ---
HIGH ALERT NOTE: Called Dr. GARCIA back at identified within the medical roster to verify physician authenticity. SOLEDAD 20MEQ X1. ALSO ORDERED 1PRBC TO BE GIVEN NOW AND ONE TOMORROW DURING DIALYSIS, PT/INR, TYPE AND SCREEN.
[2022-05-27] MEDS: ONDANSETRON HCL 4 MG/2 ML VIAL IVP PRN ×2 (09:23→18:33)
[2022-05-27] MEDS: PANTOPRAZOLE SODIUM 40 MG/VIAL (PROTONIX) IVP SCH ×2 (09:23→20:38)
[2022-05-27] MEDS: BALSAM PERU/CASTOR OIL 56.7 GM OINT...G. TP SCH (09:24)
[2022-05-27] MEDS: NYSTATIN 15 GM TOPICAL POWDER TP SCH ×2 (09:24→20:38)
[2022-05-27 09:50] LABS: INR 1.4 (0.8-1.2); PROTHROMBIN TIME 14.5 SECS (9.5-12.5)
--- NOTE | 2022-05-27 11:05 | NUR ---
SPOKE WITH HEYDI REQUESTING ORDERS FROM DR. HERRERA.
[2022-05-27] MEDS: VANCOMYCIN HCL 500 MG in NS 100 ML IV SCH (11:18)
--- NOTE | 2022-05-27 14:42 | NUR ---
1 UNIT PACKED RED BLOOD CELLS TRANSFUSED. NO ADVERSE REACTIONS. PATIENT TOLERATED WELL.
--- NOTE | 2022-05-27 19:05 | NUR ---
ENDORSED CONTINUATION OF CARE TO JOSE ELAM CABLE TESTER ABDULLAHI.
[2022-05-27] MEDS: MIRTAZAPINE 15 MG TABLET PO SCH (20:38)
[2022-05-27] MEDS: ARIPiprazole 2 MG TAB PO SCH (20:38)
[2022-05-27] MEDS: FLUCONAZOLE 200 mg/ NS 100 ML IV SCH (20:38)
[2022-05-27] MEDS ORDERED: TPN NEPHRAMINE IV SCH ×9 (21:00)
[2022-05-27] MEDS ORDERED: POTASSIUM CHLORIDE IV SCH ×9 (21:00)
[2022-05-27] MEDS ORDERED: [UNRECOGNIZED DRUG - OTHER] IV SCH ×9 (21:00)
[2022-05-27] MEDS ORDERED: SODIUM ACETATE IV SCH ×9 (21:00)
[2022-05-27] MEDS: INSULIN REGULAR, HUMAN 100 UNITS/ML, 3 ML VIAL (humuLIN R) SUBCUT PRN (23:25)
[2022-05-28] VITALS (24 sets, daily range): BP systolic 71–151
[2022-05-28] MEDS: NORMAL SALINE 5 ML DISP.SYRIN IVF SCH ×3 (05:16→22:00)
[2022-05-28] MEDS: MIDODRINE HCL 5 MG TABLET (PROAMATINE) PO SCH ×3 (05:17→22:00)
[2022-05-28] MEDS: PIPERACILLIN/TAZO 2.25G/DEX-IS 50 ML IV SCH ×3 (05:17→17:55)
[2022-05-28] MEDS: NOREPINEPHRINE BITARTRATE 32 MG in NS 218 ML IV PRN (05:25)
[2022-05-28 07:12] LABS: ALBUMIN 2.9 g/dL (3.4-4.8); CALCIUM 8.2 mg/dL (8.4-11.0); CREATININE 3.64 mg/dL (0.55-1.30); PHOSPHORUS 3.7 mg/dL (2.7-4.5); TOTAL BILIRUBIN 1.1 mg/dL (0.0-1.0)
[2022-05-28 07:45] LABS: BASOPHILS # (AUTO) 0.1 K/uL (0.0-0.2); BASOPHILS % (AUTO) 0.2 % (0.0-2.0); EOSINOPHILS % (AUTO) 0.1 % (0.0-4.0); HEMATOCRIT 25.3 % (36-48); HEMOGLOBIN 7.9 g/dL (12.0-16.0); LYMPHOCYTES % (AUTO) 3.1 % (20.5-51.5); MEAN CORPUSCULAR HEMOGLOBIN 24 pg (27-31); MEAN CORPUSCULAR HGB CONC 31 % (32-36); MEAN CORPUSCULAR VOLUME 78 fL (79.0-98.0); MONOCYTES % (AUTO) 3.2 % (1.7-9.3); NEUTROPHILS # (AUTO) 28.7 K/uL (1.8-7.7); NEUTROPHILS % (AUTO) 93.4 % (40.0-70.0); PLATELET COUNT (AUTO) 123 K/uL (130-430); RED BLOOD CELL COUNT(AUTO) 3.25 MIL/uL (4.2-6.2); RED CELL DISTRIBUTION WIDTH 23.5 % (9.0-15.0)
[2022-05-28 07:50] LABS: WHITE BLOOD COUNT (AUTO) 30.7 K/uL (4.8-10.8)
[2022-05-28] MEDS: INSULIN REGULAR, HUMAN 100 UNITS/ML, 3 ML VIAL (humuLIN R) SUBCUT PRN ×2 (07:51→11:49)
--- NOTE | 2022-05-28 08:00 | NUR ---
PATIENT IN BED, CONFUSION, COOPERATIVE, VERBAL COMMUNICATION WITH GARBLED SPEECH, NGT TO LOW INTERMITTENT SUCTION, MIDLINE RIGHT UPPER ARM, TPN RUNNING, RESTRAINTS BILATERAL SOFT WRIST, LEVOPHED 0/8MCG/KG/MIN, SAFETY MEASURES IN PLACE, DISTENDED FIRM ABDOMEN, BED IN LOWEST LOCKED POSITION, CALL LIGHT WITHIN REACH, NONREBREATHER.
[2022-05-28] MEDS ORDERED: HEPARIN SODIUM,PORCINE 5,000 UNITS/ML VIAL IVP ONE (08:45)
[2022-05-28] MEDS: DIVALPROEX SODIUM 250 MG TABLET(DEPAKOTE) PO SCH ×2 (09:00→20:13)
[2022-05-28] MEDS: FAMOTIDINE 20 MG TABLET PO SCH (09:00)
[2022-05-28] MEDS: NEPHROVITE, (FOLIC ACID/VITAMIN B COMP W-C 1 TAB) PO SCH (09:00)
[2022-05-28] MEDS: AMIODARONE HCL 200 MG TABLET PO SCH (09:00)
--- NOTE | 2022-05-28 09:00 | NUR ---
HIGH ALERT NOTE: Called Dr. GARCIA back at identified within the medical roster to verify physician authenticity. HEPARIN 10,000 UNITS FOR DIALYSIS.
--- NOTE | 2022-05-28 09:01 | NUR ---
DIALYSIS STARTED, PROVIDED 1 UNIT PACKED RED BLOOD CELLS TO DIALYSIS NURSE AFTER VERIFYING THE BLOOD WITH NITHIN THE CHARGE NURSE.
--- NOTE | 2022-05-28 09:45 | NUR ---
Grout Worker and Case Management During ICU rounds, it was shared with CM Circular Knitter Helper Mignon that wants to form an ethics committee on pts. behalf since there is no next of kin or friends to make decisions on pts. behalf. was thinking pt. could be conserved. Mignon advised this plan would take at least 6 weeks and the hospital would have to pay for this cost. Pt. should just remain a Full Code, not ethics committee needed.
[2022-05-28] MEDS ORDERED: ALBUMIN HUMAN 25% 150 ML IV ONE (10:15)
[2022-05-28] MEDS: NYSTATIN 15 GM TOPICAL POWDER TP SCH ×2 (10:16→21:37)
[2022-05-28] MEDS: BALSAM PERU/CASTOR OIL 56.7 GM OINT...G. TP SCH (10:16)
[2022-05-28] MEDS: PANTOPRAZOLE SODIUM 40 MG/VIAL (PROTONIX) IVP SCH ×2 (11:46→20:14)
--- NOTE | 2022-05-28 15:29 | NUR ---
SPOKE WITH RADHA REQUESTING ORDERS FROM DR. MALAGON.
[2022-05-28] MEDS ORDERED: PROPOFOL DRIP 100 ML IV ONE (15:53)
[2022-05-28] MEDS: PROPOFOL DRIP 100 ML IV PRN (15:56)
[2022-05-28] MEDS: PHENYLEPHRINE HCL 100 MG in NS 240 ML IV PRN (16:03)
--- NOTE | 2022-05-28 17:15 | NUR ---
RT NOTES 1155 PT PLACED ON 12 L OXY. SAT 92% 1428 PT PLACED BACK TO NRB DUE TO DESAT. SUCTION THROUGH NTS, MODERATE THIN GREEN SECRETIONS. ABG DONE, 1547 PT INTUBATED. 1630 PER CHEST X RAY, ETT PULLED BACK TO 22CM LL. WILL CONT TO MONITOR. Addendum: 05/28/22 at 1718 by Gwendolyn Ott RT Amended: Links added.
--- NOTE | 2022-05-28 17:30 | NUR ---
PATIENT INTUBATED AT [address] MALAGON. ETT 7.5, 26 AT THE LIP LINE, AFTER CHEST XRAY 21 AT THE LIP LINE AND NGT ADVANCED. 5MG ETOMIDATE AND 50MG OF SUCCINYLCHOLINE IVP. PROPOFOL FOR SEDATION AFTER INTUBATION NOW RUNNING 15MCG/KG/MIN. LEVOPHED AND NEOSYNEPHRINE RUNNING, PER DR PORTILLO TITRATE OFF LEVOPHED AND ONTO NEOSYNEPHRINE.
--- NOTE | 2022-05-28 17:53 | NUR ---
RT NOTES ETT PULLED TO 21CM LL. PT TOLERATED WELL, ET SECURE AND PATENT. Addendum: 05/28/22 at 1754 by Gwendolyn Ott RT Amended: Links added.
[2022-05-28] MEDS: EPOETIN ALFA-EPBX 4,000 UNITS/ML VIAL SUBCUT SCH (18:00)
--- NOTE | 2022-05-28 19:30 | NUR ---
REPORT RECEIVED FROM DAY RN. ASSUMING CARE NOW, RICHARD Cee
[2022-05-28] MEDS: ARIPiprazole 2 MG TAB PO SCH (20:13)
[2022-05-28] MEDS: MIRTAZAPINE 15 MG TABLET PO SCH (20:13)
[2022-05-28] MEDS: FLUCONAZOLE 200 mg/ NS 100 ML IV SCH (20:14)
[2022-05-28] MEDS ORDERED: [UNRECOGNIZED DRUG - OTHER] IV SCH ×9 (21:00)
[2022-05-28] MEDS ORDERED: SODIUM ACETATE IV SCH ×9 (21:00)
[2022-05-28] MEDS ORDERED: POTASSIUM CHLORIDE IV SCH ×9 (21:00)
[2022-05-28] MEDS ORDERED: TPN NEPHRAMINE IV SCH ×9 (21:00)
[2022-05-28] MEDS ORDERED: VASOPRESSIN 20 UNITS in NS 99 ML IV PRN (23:45)
--- NOTE | 2022-05-28 23:45 | NUR ---
DR MALAOGN CONTACTED AFTER ATTEMPT AT CONTACTING DR Romie HALE. NOTIFIED AND UPDATED OF PATIENT'S CURRENT CONDITION INCLUDING VITALS SIGNS. HYPOTENSION PERSISTS WITH LEVOPHED AND NEOSYNEPHRINE DRIPS AT MAX RATES. VASOPRESSIN ORDERED.
[2022-05-28] MEDS ORDERED: VASOPRESSIN 20 UNITS/ML VIAL IV ONE (23:54)
--- NOTE | 2022-05-28 23:55 | NUR ---
DR GARCIA RETURNED CALL ON-CALL FOR DR HALE. UPATED ON VITAL SIGNS AND CONDITION. OREDERED ALBUMIN INFUSION.
[2022-05-29] VITALS (33 sets, daily range): BP systolic 82–130
[2022-05-29] MEDS: NOREPINEPHRINE BITARTRATE 32 MG in NS 218 ML IV PRN ×3 (00:06→18:09)
[2022-05-29] MEDS: PIPERACILLIN/TAZO 2.25G/DEX-IS 50 ML IV SCH ×5 (00:17→23:05)
[2022-05-29] MEDS: NORMAL SALINE 5 ML DISP.SYRIN IVF SCH ×3 (06:00→21:03)
[2022-05-29] MEDS: MIDODRINE HCL 5 MG TABLET (PROAMATINE) PO SCH ×3 (06:00→21:03)
[2022-05-29] MEDS: PROPOFOL DRIP 100 ML IV PRN ×3 (06:12→18:08)
[2022-05-29 06:14] LABS: BASOPHILS % (AUTO) 0.2 % (0.0-2.0); EOSINOPHILS # (AUTO) 0.2 K/uL (0.0-0.4); EOSINOPHILS % (AUTO) 1.1 % (0.0-4.0); HEMATOCRIT 28.4 % (36-48); LYMPHOCYTES # (AUTO) 0.6 K/uL (1.0-5.5); LYMPHOCYTES % (AUTO) 3.5 % (20.5-51.5); MEAN CORPUSCULAR HEMOGLOBIN 26 pg (27-31); MEAN CORPUSCULAR HGB CONC 32 % (32-36); MEAN CORPUSCULAR VOLUME 83 fL (79.0-98.0); MONOCYTES # (AUTO) 0.4 K/uL (0.0-1.0); MONOCYTES % (AUTO) 2.5 % (1.7-9.3); NEUTROPHILS # (AUTO) 16.5 K/uL (1.8-7.7); NEUTROPHILS % (AUTO) 92.7 % (40.0-70.0); PLATELET COUNT (AUTO) 86 K/uL (130-430); RED BLOOD CELL COUNT(AUTO) 3.43 MIL/uL (4.2-6.2); RED CELL DISTRIBUTION WIDTH 22.7 % (9.0-15.0); WHITE BLOOD COUNT (AUTO) 17.8 K/uL (4.8-10.8)
[2022-05-29] MEDS: INSULIN REGULAR, HUMAN 100 UNITS/ML, 3 ML VIAL (humuLIN R) SUBCUT PRN ×4 (06:18→23:07)
[2022-05-29] MEDS: VASOPRESSIN 20 UNITS in NS 99 ML IV PRN ×4 (07:43→15:50)
[2022-05-29] MEDS: PHENYLEPHRINE HCL 100 MG in NS 240 ML IV PRN ×2 (08:56→15:51)
[2022-05-29] MEDS: AMIODARONE HCL 200 MG TABLET PO SCH (09:00)
[2022-05-29] MEDS: FAMOTIDINE 20 MG TABLET PO SCH (09:00)
[2022-05-29] MEDS: DIVALPROEX SODIUM 250 MG TABLET(DEPAKOTE) PO SCH ×2 (09:00→20:29)
[2022-05-29] MEDS: NEPHROVITE, (FOLIC ACID/VITAMIN B COMP W-C 1 TAB) PO SCH (09:00)
--- NOTE | 2022-05-29 09:49 | NUR ---
SPOKE WITH DR MALAGON UPDATED THAT PATIENT IS ON VASOPRESSIN, NEOSYNIPHRINE, AND LEVOPHED. ORDERED TO NOT DUE THE PARACENTESIS TODAY DUE TO INCREASED RISK. RADIOLOGIST MADE AWARE.
[2022-05-29] MEDS: BALSAM PERU/CASTOR OIL 56.7 GM OINT...G. TP SCH (09:59)
[2022-05-29] MEDS: NYSTATIN 15 GM TOPICAL POWDER TP SCH ×2 (09:59→20:30)
[2022-05-29] MEDS: PANTOPRAZOLE SODIUM 40 MG/VIAL (PROTONIX) IVP SCH ×2 (09:59→20:28)
[2022-05-29] MEDS ORDERED: ALBUMIN HUMAN 25% 200 ML IV ONE ×2 (10:00)
[2022-05-29 11:04] LABS: ALBUMIN 3.9 g/dL (3.4-4.8); CALCIUM 8.4 mg/dL (8.4-11.0); CREATININE 3.21 mg/dL (0.55-1.30); PHOSPHORUS 2.9 mg/dL (2.7-4.5); TOTAL BILIRUBIN 2.2 mg/dL (0.0-1.0); VANCOMYCIN,RANDOM 24.8 ug/mL
--- NOTE | 2022-05-29 12:09 | NUR ---
Nutrition F/U RD reviewed pts current EMR including diet hx, physician notes, nursing notes, pertinent labs/meds/procedures, care trends and care activity. Subjective Information RD attended ICU rounds. Pt is now intubated and sedated. RN stated that pt had HD yesterday w/ 1L out and was scheduled to have paracentesis today but now not likely d/t low BP and CA. RD witnessed PPN at 50mL/hr, Vetotal 17.6, prop at 10.58mL/hr (which provides 279 kcal). RN mentioned pt has sacral wound; RD noted that Abimael BID is being documented for pt. Pt abd firm, distended w/ active bowel sounds; BUE 2+ pitting edema, w/ last documented BM 2/2. Pt is not meeting nutritional needs at this time. Current Diet Order/Nutrition Support Nepro @ 45mL/hr (goal) via NGT x 5 days (pt is not receiving this); PPN D20, AA 5.4% @ 60mL/hr via peripheral line Provides( w/ prop): 924 kcal, 39 g PRO, total volume 1440 mL; GIR 1.2 Meets: 43% of est kcal, 51% of est lower PRO % PO intake NPO Last BM 2/2 x 1 per RN NEW Estimated Energy Expenditure (kcals/day) 2172 kcal (PSU 2010: vented/ICU. MSJ 1425, Tmax 36.7, Vetot 17.6) Estimated Protein Required (g/day) 76-95g (1.2-1.5 g/kg Adj BW d/t ESRD on HD, sepsis, wound) Estimated Fluid Required (l/day) Refer to MD (ESRD) Problem/Etiology/Signs/Symptoms * Altered nutrition-related lab values r/t renal dysfunction AEB high BUN/CRE. *Ongoing * Suboptimal nutritional intakes R/T cognitive limitations and suspected lack of appetite AEB confusion/disorientation/ poor concentration and poor PO intake records. *Ongoing * Increased nutritional needs R/T metabolic demands AEB estimated nutritional needs for sepsis. *Ongoing Expected Outcomes/Goals PO intake provides >85% estimated nutrient needs, nutrition-related labs trending WNL, continued skin integrity, BM q1-3 days Dietitian Recommendations * Advance PPN D20, AA 5.4% to 110 mL/hr via peripheral line Provides (w/ current prop): 1462kcal, 71 g PRO, total volume 2640mL; GIR 2.1 Meets: 67% est kcal, 93 of est lower PRO * Please update diet order to reflect current diet Follow up *High Risk: see pt in 2-[address] Addendum: 05/29/22 at [address] NEW Expected Outcomes/Goals PPN tolerated at goal rate, PPN provides >95% estimated nutritional needs, improvements in skin integrity, nutrition-related labs trending WNL, weight maintenance, BM q 1-3 days Addendum: 05/29/22 at [address] NEW Dietitian Recommendations * When pt condition has stabilized, consider advancing PPN D20, AA 5.4% to 110 mL/hr via peripheral line Provides (w/ current prop): 1462kcal, 71 g PRO, total volume 2640mL; GIR 2.1 Meets: 67% est kcal, 93 of est lower PRO * Please update diet order to reflect current diet * If pt extubated or off propofol, please contact RD for re-assessment of needs
--- NOTE | 2022-05-29 12:11 | NUR ---
Dietitian Recommendations * Advance PPN D20, AA 5.4% to 110 mL/hr via peripheral line Provides (w/ current prop): 1462kcal, 71 g PRO, total volume 2640mL; GIR 2.1 Meets: 67% est kcal, 93 of est lower PRO * Please update diet order to reflect current diet GS, MPH, RD Please refer to Nutrition F/U for further details. Thanks! Addendum: 05/29/22 at [address] NEW Dietitian Recommendations * When pt condition has stabilized, consider advancing PPN D20, AA 5.4% to 110 mL/hr via peripheral line Provides (w/ current prop): 1462kcal, 71 g PRO, total volume 2640mL; GIR 2.1 Meets: 67% est kcal, 93 of est lower PRO * Please update diet order to reflect current diet * If pt extubated or off propofol, please contact RD for re-assessment of needs
[2022-05-29] MEDS: VANCOMYCIN HCL 500 MG in NS 100 ML IV SCH (12:24)
--- NOTE | 2022-05-29 18:56 | NUR ---
ENDORSED CONTINUATION OF CARE [facility]ad[facility] SENIOR AGRICULTURAL ASSISTANT RN.
[2022-05-29] MEDS: ARIPiprazole 2 MG TAB PO SCH (20:28)
[2022-05-29] MEDS: FLUCONAZOLE 200 mg/ NS 100 ML IV SCH (20:28)
[2022-05-29] MEDS: MIRTAZAPINE 15 MG TABLET PO SCH (20:29)
[2022-05-29] MEDS ORDERED: [UNRECOGNIZED DRUG - OTHER] IV SCH ×8 (21:00)
[2022-05-29] MEDS ORDERED: SODIUM ACETATE IV SCH ×8 (21:00)
[2022-05-29] MEDS ORDERED: K PHOS IV SCH ×8 (21:00)
[2022-05-29] MEDS ORDERED: TPN NEPHRAMINE IV SCH ×8 (21:00)
[2022-05-30] VITALS (34 sets, daily range): BP systolic 77–121
[2022-05-30] MEDS: PROPOFOL DRIP 100 ML IV PRN ×2 (03:12→14:30)
[2022-05-30] MEDS: NOREPINEPHRINE BITARTRATE 32 MG in NS 218 ML IV PRN ×3 (03:17→20:33)
[2022-05-30] MEDS: PHENYLEPHRINE HCL 100 MG in NS 240 ML IV PRN ×2 (03:18→10:49)
[2022-05-30] MEDS: VASOPRESSIN 20 UNITS in NS 99 ML IV PRN ×2 (03:19→14:29)
[2022-05-30] MEDS: NORMAL SALINE 5 ML DISP.SYRIN IVF SCH ×3 (06:07→21:43)
[2022-05-30] MEDS: PIPERACILLIN/TAZO 2.25G/DEX-IS 50 ML IV SCH ×3 (06:07→17:56)
[2022-05-30] MEDS: MIDODRINE HCL 5 MG TABLET (PROAMATINE) PO SCH ×3 (06:07→21:43)
[2022-05-30] MEDS: INSULIN REGULAR, HUMAN 100 UNITS/ML, 3 ML VIAL (humuLIN R) SUBCUT PRN ×2 (06:08→17:55)
[2022-05-30 06:14] LABS: BASOPHILS % (AUTO) 0.2 % (0.0-2.0); EOSINOPHILS # (AUTO) 0.1 K/uL (0.0-0.4); EOSINOPHILS % (AUTO) 0.8 % (0.0-4.0); HEMATOCRIT 27.2 % (36-48); HEMOGLOBIN 8.8 g/dL (12.0-16.0); LYMPHOCYTES # (AUTO) 0.6 K/uL (1.0-5.5); MEAN CORPUSCULAR HEMOGLOBIN 27 pg (27-31); MEAN CORPUSCULAR HGB CONC 32 % (32-36); MEAN CORPUSCULAR VOLUME 84 fL (79.0-98.0); MONOCYTES # (AUTO) 0.4 K/uL (0.0-1.0); MONOCYTES % (AUTO) 2.4 % (1.7-9.3); NEUTROPHILS # (AUTO) 15.1 K/uL (1.8-7.7); NEUTROPHILS % (AUTO) 92.6 % (40.0-70.0); PLATELET COUNT (AUTO) 86 K/uL (130-430); RED BLOOD CELL COUNT(AUTO) 3.24 MIL/uL (4.2-6.2); WHITE BLOOD COUNT (AUTO) 16.3 K/uL (4.8-10.8)
[2022-05-30 06:30] LABS: ALBUMIN 2.3 g/dL (3.4-4.8); CREATININE 3.18 mg/dL (0.55-1.30); PHOSPHORUS 2.2 mg/dL (2.7-4.5); TOTAL BILIRUBIN 2.1 mg/dL (0.0-1.0)
--- NOTE | 2022-05-30 07:15 | NUR ---
Opening Received report on pt. Pt intubated and sedated with diprivan drip, in no signs of pain or acute distress. Pt on levophed, neosynephrine, and vasopressin drip. NGT to suction, noted green output. TPN for nutrition. Noted green secretions from mouth, needing frequent suctioning. Per report, pt is to have dialysis and paracentesis today. Skin problems present, edematous. Pt with warming blanket and on low airloss mattress.
[2022-05-30 07:49] LABS: INR 1.4 (0.8-1.2); PROTHROMBIN TIME 14.2 SECS (9.5-12.5)
--- NOTE | 2022-05-30 08:16 | NUR ---
Dr. Wilkins rounding on pt, states he recommends holding off on dialysis and paracentesis d/t pt hemodynamically unstable.
[2022-05-30] MEDS: FAMOTIDINE 20 MG TABLET PO SCH (09:08)
[2022-05-30] MEDS: PANTOPRAZOLE SODIUM 40 MG/VIAL (PROTONIX) IVP SCH ×2 (09:08→20:32)
[2022-05-30] MEDS: DIVALPROEX SODIUM 250 MG TABLET(DEPAKOTE) PO SCH ×2 (09:08→20:40)
[2022-05-30] MEDS: AMIODARONE HCL 200 MG TABLET PO SCH (09:08)
[2022-05-30] MEDS: NEPHROVITE, (FOLIC ACID/VITAMIN B COMP W-C 1 TAB) PO SCH (09:09)
[2022-05-30] MEDS: BALSAM PERU/CASTOR OIL 56.7 GM OINT...G. TP SCH (09:10)
[2022-05-30] MEDS: NYSTATIN 15 GM TOPICAL POWDER TP SCH ×2 (09:10→20:41)
[2022-05-30] MEDS: EPOETIN ALFA-EPBX 4,000 UNITS/ML VIAL SUBCUT SCH (17:51)
--- NOTE | 2022-05-30 19:15 | NUR ---
Pt report received. Pt sedated, intubated with vent settings: A/C, 16, 450, 75%, 5. NGT to right nare with green stomach contents noted to tubing, on low-intermittent wall suction. ANNEMARIE Midline with Propofol, Neosynephrine, Vasopressin and Levophed drips and TPN infusing. Skin taut, 2+ pitting edema and petechiae generalized to extremities. VSS, NAD.
[2022-05-30] MEDS: ARIPiprazole 2 MG TAB PO SCH (20:39)
[2022-05-30] MEDS: MIRTAZAPINE 15 MG TABLET PO SCH (20:40)
[2022-05-30] MEDS ORDERED: [UNRECOGNIZED DRUG - OTHER] IV SCH ×8 (21:00)
[2022-05-30] MEDS ORDERED: K PHOS IV SCH ×8 (21:00)
[2022-05-30] MEDS ORDERED: SODIUM ACETATE IV SCH ×8 (21:00)
[2022-05-30] MEDS ORDERED: TPN NEPHRAMINE IV SCH ×8 (21:00)
[2022-05-30] MEDS: FLUCONAZOLE 200 mg/ NS 100 ML IV SCH (21:42)
[2022-05-31] VITALS (37 sets, daily range): BP systolic 80–134
[2022-05-31] MEDS: PIPERACILLIN/TAZO 2.25G/DEX-IS 50 ML IV SCH ×5 (01:11→23:46)
[2022-05-31] MEDS: INSULIN REGULAR, HUMAN 100 UNITS/ML, 3 ML VIAL (humuLIN R) SUBCUT PRN ×4 (01:20→18:04)
[2022-05-31] MEDS: VASOPRESSIN 20 UNITS in NS 99 ML IV PRN ×2 (01:26→22:58)
[2022-05-31] MEDS: PHENYLEPHRINE HCL 100 MG in NS 240 ML IV PRN ×4 (01:27→20:55)
[2022-05-31] MEDS: PROPOFOL DRIP 100 ML IV PRN ×3 (03:37→18:14)
[2022-05-31] MEDS: NOREPINEPHRINE BITARTRATE 32 MG in NS 218 ML IV PRN ×2 (03:42→20:34)
[2022-05-31] MEDS: MIDODRINE HCL 5 MG TABLET (PROAMATINE) PO SCH ×3 (06:34→21:54)
[2022-05-31] MEDS: NORMAL SALINE 5 ML DISP.SYRIN IVF SCH ×3 (06:34→21:54)
--- NOTE | 2022-05-31 07:15 | NUR ---
Pt report given to ABDULLAHI [place]. No changes in pt condition this shift. RAPHAEL, TENISHA.
--- NOTE | 2022-05-31 07:18 | NUR ---
Opening Received report on pt. Pt intubated on ventilator, no signs of pain or distress. Sedated with diprivan drip, remains on levophed, neosynephrine, vasopressin drips. Pt still noted with green output from NGT and oral secretions, NGT to suction. Edematous extremities, skin with generalized purpura. On low air loss mattress. Heels off loaded with pillows.
[2022-05-31 07:33] LABS: ALBUMIN 2.2 g/dL (3.4-4.8); CALCIUM 8.4 mg/dL (8.4-11.0); CREATININE 3.91 mg/dL (0.55-1.30); PHOSPHORUS 2.8 mg/dL (2.7-4.5); TOTAL BILIRUBIN 2.1 mg/dL (0.0-1.0)
[2022-05-31] MEDS: PANTOPRAZOLE SODIUM 40 MG/VIAL (PROTONIX) IVP SCH ×2 (08:15→20:30)
[2022-05-31] MEDS: NEPHROVITE, (FOLIC ACID/VITAMIN B COMP W-C 1 TAB) PO SCH (08:15)
[2022-05-31] MEDS: AMIODARONE HCL 200 MG TABLET PO SCH (08:16)
[2022-05-31] MEDS: FAMOTIDINE 20 MG TABLET PO SCH (08:17)
[2022-05-31] MEDS: BALSAM PERU/CASTOR OIL 56.7 GM OINT...G. TP SCH (08:17)
[2022-05-31] MEDS: NYSTATIN 15 GM TOPICAL POWDER TP SCH ×2 (08:17→21:53)
[2022-05-31] MEDS: DIVALPROEX SODIUM 250 MG TABLET(DEPAKOTE) PO SCH ×2 (08:18→20:30)
[2022-05-31 08:43] LABS: HEMATOCRIT 28.5 % (36-48); HEMOGLOBIN 8.9 g/dL (12.0-16.0); MEAN CORPUSCULAR HEMOGLOBIN 26 pg (27-31); MEAN CORPUSCULAR HGB CONC 31 % (32-36); MEAN CORPUSCULAR VOLUME 82 fL (79.0-98.0); PLATELET COUNT (AUTO) 58 K/uL (130-430); RED BLOOD CELL COUNT(AUTO) 3.48 MIL/uL (4.2-6.2); RED CELL DISTRIBUTION WIDTH 24.5 % (9.0-15.0); WHITE BLOOD COUNT (AUTO) 17.8 K/uL (4.8-10.8)
--- NOTE | 2022-05-31 11:30 | NUR ---
Dr. Smith at bedside rounding on pt, updated regarding attempts for HD and paracentesis but held d/t hemodynamic instability. No new orders.
[2022-05-31] MEDS: VANCOMYCIN HCL 500 MG in NS 100 ML IV SCH (11:42)
--- NOTE | 2022-05-31 12:02 | NUR ---
SPOKE WITH NIHARIKA REQUESTING ORDERS FROM DR. MALAGNO.
[2022-05-31 12:15] LABS: BAND % (MANUAL) 17 % (0-6); BASOPHILS # (AUTO) 0.1 K/uL (0.0-0.2); BASOPHILS % (AUTO) 0.5 % (0.0-2.0); EOSINOPHILS # (AUTO) 0.1 K/uL (0.0-0.4); EOSINOPHILS % (AUTO) 0.8 % (0.0-4.0); LYMPHOCYTES # (AUTO) 0.6 K/uL (1.0-5.5); LYMPHOCYTES % (AUTO) 3.4 % (20.5-51.5); LYMPHOCYTES % (MANUAL) 7 % (20-46); MONOCYTES # (AUTO) 0.7 K/uL (0.0-1.0); MONOCYTES % (AUTO) 4.1 % (1.7-9.3); NEUTROPHILS # (AUTO) 16.3 K/uL (1.8-7.7); NEUTROPHILS % (AUTO) 91.2 % (40.0-70.0)
[2022-05-31 12:16] LABS: BASOPHILS % (MANUAL) 0 % (0-2); EOSINOPHILS % (MANUAL) 2 % (0-7); MONOCYTES % (MANUAL) 2 % (0-11)
--- NOTE | 2022-05-31 13:36 | NUR ---
SPOKE WITH MANE REQUESTING ORDERS FROM DR. MALAGON.
--- NOTE | 2022-05-31 17:06 | NUR ---
SPOKE WITH ABHISHEK REQUESTING ORDERS FROM DR. HALE.
--- NOTE | 2022-05-31 17:21 | NUR ---
Dr. Dubon paged per advice from Dr. Wilkins after rounding, and return call regarding pt. Informed regarding ABG results, new orders made for bicarb drip and repeat ABG in morning.
[2022-05-31] MEDS: SODIUM BICARBONATE 8.4% JECT 150 MEQ in D5W 1,000 ML IVP SCH (18:54)
[2022-05-31] MEDS: ARIPiprazole 2 MG TAB PO SCH (20:30)
[2022-05-31] MEDS: MIRTAZAPINE 15 MG TABLET PO SCH (20:30)
[2022-05-31] MEDS: FLUCONAZOLE 200 mg/ NS 100 ML IV SCH (20:31)
[2022-05-31] MEDS ORDERED: SODIUM ACETATE IV SCH ×8 (21:00)
[2022-05-31] MEDS ORDERED: TPN NEPHRAMINE IV SCH ×8 (21:00)
[2022-05-31] MEDS ORDERED: [UNRECOGNIZED DRUG - OTHER] IV SCH ×8 (21:00)
[2022-05-31] MEDS ORDERED: K PHOS IV SCH ×8 (21:00)
[2022-06-01] VITALS (31 sets, daily range): BP systolic 85–110
[2022-06-01] MEDS: PHENYLEPHRINE HCL 100 MG in NS 240 ML IV PRN ×4 (02:57→23:17)
[2022-06-01] MEDS: NOREPINEPHRINE BITARTRATE 32 MG in NS 218 ML IV PRN ×5 (03:47→23:38)
[2022-06-01] MEDS: PROPOFOL DRIP 100 ML IV PRN ×2 (05:00→18:01)
[2022-06-01] MEDS: PIPERACILLIN/TAZO 2.25G/DEX-IS 50 ML IV SCH (05:31)
[2022-06-01] MEDS: MIDODRINE HCL 5 MG TABLET (PROAMATINE) PO SCH ×3 (05:31→21:04)
[2022-06-01] MEDS: NORMAL SALINE 5 ML DISP.SYRIN IVF SCH ×3 (05:31→21:04)
[2022-06-01] MEDS: INSULIN REGULAR, HUMAN 100 UNITS/ML, 3 ML VIAL (humuLIN R) SUBCUT PRN ×3 (05:49→23:46)
[2022-06-01 07:12] LABS: INR 1.2 (0.8-1.2)
[2022-06-01] MEDS: NEPHROVITE, (FOLIC ACID/VITAMIN B COMP W-C 1 TAB) PO SCH (08:30)
[2022-06-01] MEDS: AMIODARONE HCL 200 MG TABLET PO SCH (08:30)
[2022-06-01] MEDS: DIVALPROEX SODIUM 250 MG TABLET(DEPAKOTE) PO SCH ×2 (08:31→21:03)
[2022-06-01] MEDS: FAMOTIDINE 20 MG TABLET PO SCH (08:31)
[2022-06-01] MEDS: PANTOPRAZOLE SODIUM 40 MG/VIAL (PROTONIX) IVP SCH (08:31)
[2022-06-01] MEDS: BALSAM PERU/CASTOR OIL 56.7 GM OINT...G. TP SCH (08:32)
[2022-06-01] MEDS: NYSTATIN 15 GM TOPICAL POWDER TP SCH ×2 (08:32→21:04)
[2022-06-01 08:33] LABS: HEMOGLOBIN 8.3 g/dL (12.0-16.0); MEAN CORPUSCULAR HEMOGLOBIN 26 pg (27-31); MEAN CORPUSCULAR HGB CONC 30 % (32-36)
[2022-06-01 08:44] LABS: ALBUMIN 1.7 g/dL (3.4-4.8); CREATININE 3.65 mg/dL (0.55-1.30); PHOSPHORUS 4.1 mg/dL (2.7-4.5); TOTAL BILIRUBIN 2.6 mg/dL (0.0-1.0)
[2022-06-01 08:46] LABS: HEMATOCRIT 27.7 % (36-48); MEAN CORPUSCULAR VOLUME 86 fL (79.0-98.0); RED BLOOD CELL COUNT(AUTO) 3.23 MIL/uL (4.2-6.2); RED CELL DISTRIBUTION WIDTH 25.4 % (9.0-15.0)
[2022-06-01 09:03] LABS: PLATELET COUNT (AUTO) 24 K/uL (130-430)
--- NOTE | 2022-06-01 09:15 | NUR ---
Critical lab Dr. Hyde informed regarding platelet count 24, no visible active bleeding noted. Dr. Hyde states no transfusion.
[2022-06-01] MEDS: VASOPRESSIN 20 UNITS in NS 99 ML IV PRN ×2 (09:44→19:49)
--- NOTE | 2022-06-01 09:51 | NUR ---
SPOKE WITH RD REQUESTING ORDERS FROM DR. GELLER REGARDING CRITICAL LABS.
--- NOTE | 2022-06-01 10:57 | NUR ---
SPOKE WITH MALA REQUESTING ORDERS FROM DR. MALAGON.
[2022-06-01] MEDS: SODIUM BICARBONATE 8.4% JECT 150 MEQ in D5W 1,000 ML IVP SCH (11:48)
[2022-06-01 14:26] LABS: ATYPICAL LYMPHOCYTES % 0 % (0-0); BAND % (MANUAL) 30 % (0-6); BASOPHILS % (MANUAL) 0 % (0-2); EOSINOPHILS % (MANUAL) 0 % (0-7); LYMPHOCYTES % (MANUAL) 10 % (20-46); METAMYELOCYTES % 3 % (0-0); MONOCYTES % (MANUAL) 4 % (0-11); MYELOCYTES % 3 % (0-0); PROMYELOCYTES % 2 % (0-0)
[2022-06-01 14:27] LABS: CORRECTED WHITE BLOOD COUNT 19.6 K/uL (4.5-11.0)
--- NOTE | 2022-06-01 15:38 | NUR ---
Nutrition F/U RD reviewed pts current EMR including diet hx, physician notes, nursing notes, pertinent labs/meds/procedures, care trends and care activity. Subjective Information: RD and international trade analyst attended ICU rounds this morning. Primary RN reported that pt continues on pressors d/t low BP and HD and paracentesis continue on hold d/t pt's medically instability. Pt is more edematous 4+ pitting edema to BLE and 2+ pitting edema to BUE per EMR review). PharmD stated that she plans to decrease pt's TPN to 60 ml/hr d/t edema and new order for sodium bicarb IV. Pt's NGT is connected to LIS w/ 100 ml of gastric output per RN report. Pt is not receiving EN support and has not been since 05/24, and physicians have documented on pt's poor prognosis per EMR review. Pt is at increased nutritional risk for malnutrition, and is not meeting optimal nutritional needs at this time. Current Diet Order/Nutrition Support: Nepro at 45 ml/hr via NGT x8 days -- not infusing & PPN D20%, AA5.4% at 80 ml/hr via peripheral line % PO intake: N/A Last BM: 05/24 x1 per EMR review NEW Estimated Energy Expenditure (kcals/day) 1686 (PSU 2009 d/t vented/ICU status; Tmax: 37.2'C, Ve: 9.4) NEW Estimated Protein Required (g/day) 68-85 (1.2-1.5 gm/kg IBW d/t ESRD/no HD at this time, sepsis, wound, CA) Estimated Fluid Required (l/day) Refer to MD (ESRD) Problem/Etiology/Signs/Symptoms * Altered nutrition-related lab values r/t renal dysfunction AEB high BUN/CRE. *Ongoing * Suboptimal nutritional intakes R/T cognitive limitations and suspected lack of appetite AEB confusion/disorientation/ poor concentration and poor PO intake records. *Ongoing * Increased nutritional needs R/T metabolic demands AEB estimated nutritional needs for sepsis. *Ongoing Expected Outcomes/Goals PO intake provides >85% estimated nutrient needs, nutrition-related labs trending WNL, continued skin integrity, BM q1-3 days Dietitian Recommendations * PPN D20%, AA .4% tat 60 ml/hr (goal rate) via peripheral line Provides (w/ current propofol infusion rate): 851 kcal/day, 39 gm protein/day, 1440 ml total volume/day, and GIR: 1.2 mg CHO/kg/min Meets: 50% of estimated caloric needs and 57% of lower end of estimated protein needs * D/C EN support order (Nepro at 45 ml/hr via NGT) -- contraindicated at this time * Consider EN support if/when medically appropriate Follow up High Risk: F/U within 2-3 days
--- NOTE | 2022-06-01 15:38 | NUR ---
RT NOTES Per low sat, FIO2 to 0.90, improve to 93%. RN notified
--- NOTE | 2022-06-01 15:53 | NUR ---
Problem/Etiology/Signs/Symptoms * Altered nutrition-related lab values r/t renal dysfunction AEB high BUN/CRE. *Ongoing Dietitian Recommendations * PPN D20%, AA .4% tat 60 ml/hr (goal rate) via peripheral line Provides (w/ current propofol infusion rate): 851 kcal/day, 39 gm protein/day, 1440 ml total volume/day, and GIR: 1.2 mg CHO/kg/min Meets: 50% of estimated caloric needs and 57% of lower end of estimated protein needs * D/C EN support order (Nepro at 45 ml/hr via NGT) -- contraindicated at this time * Consider EN support if/when medically appropriate LP, MS, RD Please refer to Nutrition F/U for details. Addendum: 06/01/22 at [address] PLEASE DISREGARD NOTE. ENTERED IN ERROR.
[2022-06-01] MEDS: SUCRALFATE 1 GM/10 ML UDC NG SCH (17:10)
[2022-06-01] MEDS: EPOETIN ALFA-EPBX 4,000 UNITS/ML VIAL SUBCUT SCH (17:11)
--- NOTE | 2022-06-01 18:55 | NUR ---
Closing Pt intubated, remains sedated with diprivan. Pt still receiving levophed, vasopressin, neosynephrine drips. Pt still with green output from NGT and oral secretions, NGT clamped currently for meds. Heels off load with pillows. Will endorse plan of care to RN.
--- NOTE | 2022-06-01 19:05 | NUR ---
Opening notes Received report from endorsing morning shift RN for continuity of care. Patient is lying in bed with IVF NS @ tko, Propofol drip @ 10 mcg/kg/min, levophed @ 1 mcg/kg/min, vasopressin @ 0.03 units/min, neosynephrine @ 3 mcg/kg/min, TPN @ 60 mL/hr, and Bicarb drip @ 70 mL/hr. Patient's vital signs blood pressure 103/64, heart rate 110, respirations 27, and SPO2 90% FIO2 on ventilator. Ventilator settings PC rate 16, FIO2 90%, and peep of 5. Bed is locked and in lowest position, fall and safety precautions is in place.
[2022-06-01] MEDS ORDERED: K PHOS IV SCH ×9 (21:00)
[2022-06-01] MEDS ORDERED: TPN NEPHRAMINE IV SCH ×9 (21:00)
[2022-06-01] MEDS ORDERED: [UNRECOGNIZED DRUG - OTHER] IV SCH ×9 (21:00)
[2022-06-01] MEDS ORDERED: SODIUM ACETATE IV SCH ×9 (21:00)
[2022-06-01] MEDS: MIRTAZAPINE 15 MG TABLET PO SCH (21:03)
[2022-06-01] MEDS: FLUCONAZOLE 200 mg/ NS 100 ML IV SCH (21:03)
[2022-06-01] MEDS: ARIPiprazole 2 MG TAB PO SCH (21:05)
[2022-06-01] MEDS: ERAVACYCLINE DI HYDROCHLORIDE IV SCH (22:14)
[2022-06-01] MEDS: NS IV SCH (22:14)
[2022-06-02] VITALS (16 sets, daily range): BP systolic 55–96
[2022-06-02] MEDS: SODIUM BICARBONATE 8.4% JECT 150 MEQ in D5W 1,000 ML IVP SCH (03:09)
[2022-06-02] MEDS: MIDODRINE HCL 5 MG TABLET (PROAMATINE) PO SCH ×2 (05:19→14:31)
[2022-06-02] MEDS: NORMAL SALINE 5 ML DISP.SYRIN IVF SCH ×2 (05:19→14:32)
[2022-06-02] MEDS: PHENYLEPHRINE HCL 100 MG in NS 240 ML IV PRN ×2 (05:22→12:24)
[2022-06-02] MEDS: VASOPRESSIN 20 UNITS in NS 99 ML IV PRN (05:35)
[2022-06-02] MEDS: INSULIN REGULAR, HUMAN 100 UNITS/ML, 3 ML VIAL (humuLIN R) SUBCUT PRN (05:36)
[2022-06-02] MEDS: NOREPINEPHRINE BITARTRATE 32 MG in NS 218 ML IV PRN ×2 (05:37→12:55)
[2022-06-02] MEDS: SUCRALFATE 1 GM/10 ML UDC NG SCH (06:32)
--- NOTE | 2022-06-02 06:45 | NUR ---
Called the [facility] regarding additional blood pressure order and regarding low saturation, spoke to Juany on the phone. Addendum: 06/02/22 at 0656 by Johanna Hernandez RN 06 Dr. Wilkins called back, gave report, no new order given.
--- NOTE | 2022-06-02 07:15 | NUR ---
Opening Received report on pt. Pt intubated, on FiO2 100%. On levophed, neosynephrine, vasopressin drips. Pt noted with green output from NGT suction and oral secretions. Also noted light bleeding from mouth corners, oral care done with caution. Edematous with fragile skin. Abdomen distended. On low air loss mattress. Heels offloaded with pillows.
[2022-06-02 07:17] LABS: HEMATOCRIT 26.4 % (36-48); HEMOGLOBIN 7.9 g/dL (12.0-16.0); MEAN CORPUSCULAR HEMOGLOBIN 26 pg (27-31); MEAN CORPUSCULAR HGB CONC 30 % (32-36); MEAN CORPUSCULAR VOLUME 86 fL (79.0-98.0); RED BLOOD CELL COUNT(AUTO) 3.08 MIL/uL (4.2-6.2)
[2022-06-02 07:26] LABS: INR 1.4 (0.8-1.2); PROTHROMBIN TIME 14.2 SECS (9.5-12.5)
[2022-06-02 07:35] LABS: ALBUMIN 1.3 g/dL (3.4-4.8); CALCIUM 7.5 mg/dL (8.4-11.0); CREATININE 3.64 mg/dL (0.55-1.30); PHOSPHORUS 5.3 mg/dL (2.7-4.5); TOTAL BILIRUBIN 2.3 mg/dL (0.0-1.0)
[2022-06-02 07:41] LABS: PLATELET COUNT (AUTO) 7 K/uL (130-430); WHITE BLOOD COUNT (AUTO) 33.9 K/uL (4.8-10.8)
[2022-06-02] MEDS: FAMOTIDINE 20 MG TABLET PO SCH (08:37)
[2022-06-02] MEDS: DIVALPROEX SODIUM 250 MG TABLET(DEPAKOTE) PO SCH (08:37)
[2022-06-02] MEDS: NEPHROVITE, (FOLIC ACID/VITAMIN B COMP W-C 1 TAB) PO SCH (08:37)
[2022-06-02] MEDS: AMIODARONE HCL 200 MG TABLET PO SCH (08:38)
[2022-06-02] MEDS: NYSTATIN 15 GM TOPICAL POWDER TP SCH (08:38)
[2022-06-02] MEDS: ERAVACYCLINE DI HYDROCHLORIDE IV SCH (08:39)
[2022-06-02] MEDS: NS IV SCH (08:39)
[2022-06-02] MEDS: BALSAM PERU/CASTOR OIL 56.7 GM OINT...G. TP SCH (08:39)
[2022-06-02 10:11] LABS: BAND % (MANUAL) 10 % (0-6); BASOPHILS % (MANUAL) 0 % (0-2); EOSINOPHILS % (MANUAL) 2 % (0-7); LYMPHOCYTES % (MANUAL) 12 % (20-46); MONOCYTES % (MANUAL) 4 % (0-11)
[2022-06-02] MEDS ORDERED: EPINEPHrine JECT 0.1 MG/ML SYR ONE (14:30)
[2022-06-02] MEDS ORDERED: CALCIUM CHLORIDE 1 GM/10 ML DISP.SYRIN (14 mEq Ca++/SYR) ONE (14:30)
[2022-06-02] MEDS ORDERED: SODIUM BICARBONATE 8.4% JECT 50 MEQ/50 ML SYRINGE ONE (14:30)
--- NOTE | 2022-06-02 14:35 | NUR ---
Pt's B/P unable to read on monitor, HR 53 with weak pulse. Code blue activated. Details on Code Blue flowsheet.
--- NOTE | 2022-06-02 14:49 | NUR ---
End of code blue, patient
--- NOTE | 2022-06-02 14:58 | NUR ---
[facility] agency contacted by RN, spoke with Aniyah. Case #[id number] .
--- NOTE | 2022-06-02 15:04 | NUR ---
RT NOTES ATTENDED [facility] JARRELL, PT BAGGED, COMPRESSIONS DONE, [address] HOBSON CALLED [facility] JARRELL. Addendum: 06/02/22 at 1516 by Gwendolyn Ott RT Amended: Links added.
--- NOTE | 2022-06-02 15:11 | NUR ---
[employer] CALLED [facility] [employer] [place] Reporter called contacted by RN. Body released by fieldwork coordinator, spoke with Mary Anne Quinn.
--- NOTE | 2022-06-02 15:28 | NUR ---
CONSULTING PHYSICIANS. LEFT MESSAGE TO CASEY FOR DR GELLER, TO ANSWERING SERVICE FOR DR MALAGON, TO ZURDO FOR DR SAUER, THAT PT .
[2022-06-02] MEDS ORDERED: SODIUM ACETATE IV SCH ×8 (21:00)
[2022-06-02] MEDS ORDERED: MAGNESIUM SULFATE IV SCH ×8 (21:00)
[2022-06-02] MEDS ORDERED: TPN NEPHRAMINE IV SCH ×8 (21:00)
[2022-06-02] MEDS ORDERED: [UNRECOGNIZED DRUG - OTHER] IV SCH ×8 (21:00)
[2022-06-03] MEDS ORDERED: ERAVACYCLINE DI HYDROCHLORIDE IV SCH (09:00)
[2022-06-03] MEDS ORDERED: NS IV SCH (09:00)
== END 2022-06-02 14:49 | DRG 870 ==
LOC: SED 13:18 → SIC 16:47
PROVIDERS: ADMIT Specialist; ATTEND Specialist
PROC: 0W9G3ZZ Drainage of Peritoneal Cavity, Percutaneous Approach (ICD-10-PCS; 2022-05-10)
PROC: 5A1D70Z Performance of Urinary Filtration, Intermittent, Less than 6 Hours Per Day (ICD-10-PCS; 2022-05-14)
PROC: 5A1D70Z Performance of Urinary Filtration, Intermittent, Less than 6 Hours Per Day (ICD-10-PCS; 2022-05-16)
PROC: 5A1D70Z Performance of Urinary Filtration, Intermittent, Less than 6 Hours Per Day (ICD-10-PCS; 2022-05-17)
PROC: 5A1D70Z Performance of Urinary Filtration, Intermittent, Less than 6 Hours Per Day (ICD-10-PCS; 2022-05-18)
PROC: 5A1D70Z Performance of Urinary Filtration, Intermittent, Less than 6 Hours Per Day (ICD-10-PCS; 2022-05-20)
PROC: 5A1D70Z Performance of Urinary Filtration, Intermittent, Less than 6 Hours Per Day (ICD-10-PCS; 2022-05-22)
PROC: 5A1D70Z Performance of Urinary Filtration, Intermittent, Less than 6 Hours Per Day (ICD-10-PCS; 2022-05-24)
PROC: 5A1D70Z Performance of Urinary Filtration, Intermittent, Less than 6 Hours Per Day (ICD-10-PCS; 2022-05-26)
PROC: 02HV33Z Insertion of Infusion Device into Superior Vena Cava, Percutaneous Approach (ICD-10-PCS; principal; 2022-05-28)
PROC: 5A1955Z Respiratory Ventilation, Greater than 96 Consecutive Hours (ICD-10-PCS; 2022-05-28)
PROC: B548ZZA Ultrasonography of Superior Vena Cava, Guidance (ICD-10-PCS; 2022-05-28)
PROC: 30233N1 Transfusion of Nonautologous Red Blood Cells into Peripheral Vein, Percutaneous Approach (ICD-10-PCS; 2022-05-28)
PROC: 5A1D70Z Performance of Urinary Filtration, Intermittent, Less than 6 Hours Per Day (ICD-10-PCS; 2022-05-28)
PROC: 0BH17EZ Insertion of Endotracheal Airway into Trachea, Via Natural or Artificial Opening (ICD-10-PCS; 2022-05-28)
PROC: 0DH67UZ Insertion of Feeding Device into Stomach, Via Natural or Artificial Opening (ICD-10-PCS; 2022-05-28)
PROC: 5A1D70Z Performance of Urinary Filtration, Intermittent, Less than 6 Hours Per Day (ICD-10-PCS; 2022-05-30)
DX: A41.9 Sepsis, unspecified organism (principal); E43 Unspecified severe protein-calorie malnutrition; J18.9 Pneumonia, unspecified organism; N18.6 End stage renal disease; R65.21 Severe sepsis with septic shock; J96.01 Acute respiratory failure with hypoxia; K65.2 Spontaneous bacterial peritonitis; I12.0 Hypertensive chronic kidney disease with stage 5 chronic kidney disease or end stage renal disease; E87.20 Acidosis, unspecified; R18.8 Other ascites; I42.9 Cardiomyopathy, unspecified; R18.0 Malignant ascites; J91.0 Malignant pleural effusion; C48.2 Malignant neoplasm of peritoneum, unspecified; K21.9 Gastro-esophageal reflux disease without esophagitis; D63.8 Anemia in other chronic diseases classified elsewhere; R13.10 Dysphagia, unspecified; D69.6 Thrombocytopenia, unspecified; Z20.822 Contact with and (suspected) exposure to COVID-19; E83.52 Hypercalcemia; E88.09 Other disorders of plasma-protein metabolism, not elsewhere classified; F20.9 Schizophrenia, unspecified; Z88.8 Allergy status to other drugs, medicaments and biological substances; Z91.018 Allergy to other foods; Z91.010 Allergy to peanuts; Z99.2 Dependence on renal dialysis; Z85.43 Personal history of malignant neoplasm of ovary; Z68.31 Body mass index [BMI] 31.0-31.9, adult
CPT/HCPCS: 36415; 36600; 49083; 71045; 74018; 76376; 76700-TC; 80048; 80053; 80202; 81000; 82042; 82140; 82150; 82247; 82533; 82803-TC; 82947; 82962; 83605; 83690; 83735; 83986; 84100; 84157; 84478; 84484; 85007; 85025; 85027; 85384; 85610-TC; 85651-TC; 85730-TC; 86140; 86886; 86900; 86901; 86920; 87040; 87070-TC; 87081; 87205-TC; 88108; 88305; 89051-TC; 89060-TC; 90935; 92610-GN; 92950; 93005; 94002; 94003; 94640; 94760; 96365; 99291; C9113; J0122; J0171; J1450; J1644; J1815; J1956; J2185; J2270; J2370; J2405; J2543; J2704; J3010; J3370; J3475; J3480; J3490; J7050; J7060; J7131; J7613; P9021; P9046; Q5106; Q9963; Q9967